=== PATIENT | male | born 1965 | race Caucasian/White ===

== ENCOUNTER 2020-07-30 10:21 | Outpatient (REF) | payer BC, SELFPAY | END 2020-07-30 10:22 | disposition home or self-care (01) | LOC: HO.LAB 10:21 | PROVIDERS: PCP Nurse Practitioner Family; Visit Provider Internal Medicine | DX: Z20.828 Contact with and (suspected) exposure to other viral communicable diseases (principal) | CPT/HCPCS: 36415; 87635 ==

== ENCOUNTER → 2020-08-20 08:43 | Outpatient (BNVA) | payer BC, SELFPAY | PROVIDERS: PCP Nurse Practitioner Family; Referring Provider Nurse Practitioner Family; Visit Provider Nurse Practitioner | DX: Z76.89 Persons encountering health services in other specified circumstances (principal) ==

== ENCOUNTER → 2021-12-27 07:20 | Outpatient (BNVA) | payer BC, SELFPAY | PROVIDERS: Visit Provider Internal Medicine | DX: E11.9 Type 2 diabetes mellitus without complications (principal) | CPT/HCPCS: 82947 ==

== ENCOUNTER 2022-12-10 06:56 | Emergency (ER) | payer BC, SELFPAY ==
[2022-12-10 07:33] VITALS: BP 157/79; PULSE 92; RESP 16; TEMP 36.2; O2SAT 97; BMI 28.4
[2022-12-10 08:17] VITALS: BP 154/91; PULSE 91; RESP 18; TEMP 36.5; O2SAT 98
--- NOTE | 2022-12-10 09:11 | ED.LOWEXIN ---
HPI - Extremity Injury (Lower) General Chief Complaint: Extremity Injury, Lower Stated Complaint: overgrown nail, left toe swollen Time Seen by Provider: 12/10/22 08:44 Source: patient Mode of arrival: ambulatory History of Present Illness HPI Narrative: 56-year-old male who is diabetic and presents with blister at the base of his right great toe and states poor sensation into his feet at baseline. He denies any associated fever, chills or increased foot pain. Related Data Home Medications Medication Instructions Recorded Confirmed insulin glargine 100 unit/mL (3 80 unit subcut QPM 12/27/21 12/27/21 mL) subcutaneous pen (Lantus Solostar U-100 Insulin) metformin 500 mg tablet 1,000 mg PO BID 12/27/21 12/27/21 Previous Rx's Medication Instructions Recorded omeprazole 40 mg capsule,delayed 40 mg PO DAILY 30 days #30 caps 08/20/20 release cephalexin 500 mg capsule 500 mg PO BID 5 days #10 caps 12/10/22 doxycycline hyclate 100 mg capsule 100 mg PO BID 5 days #10 caps 12/10/22 Allergies Allergy/AdvReac Type Severity Reaction Status Date / Time SEASONAL ALLERGIES Allergy Mild RUNNY NOSE Uncoded 12/27/21 07:42 Review of Systems Review of Systems: Pertinent positives and negatives as stated in HPI PMFSH Past Medical History Source: nursing notes reviewed Medical History HLD (hyperlipidemia) HTN (hypertension) T2DM (type 2 diabetes mellitus) Surgical History Hx of circumcision Hx of colonoscopy (08/13/18) Family History Family History Father Diabetes Mother Diabetes Paternal Grandfather Diabetes Social History Social History Alcohol intake: never Patient Tobacco Use Status: Never used Tobacco Advance Directives: No Advance Directives Information Provided: No Physical Exam Vital Signs: Vital Signs: Last Vital Signs Temp 97.7 F 12/10/22 08:17 Pulse 91 12/10/22 08:17 Resp 18 12/10/22 08:17 BP 154/91 H 12/10/22 08:17 Pulse Ox 98 02/11/23 08:17 O2 Del Method 12/10/22 08:17 BMI result Body Mass Index 28.4 VITAL SIGNS: Reviewed. GENERAL: Well developed, well nourished, in no acute distress. HEAD: Normocephalic/atraumatic EYES: PERRLA, EOMI EARS: Ext canals without abnormality OROPHARYNX: no oral lesions noted, posterior pharynx clear LUNGS: Normal breath sounds. No adventitious sounds or accessory muscle use. SpO2<98> CARDIOVASCULAR: Regular rate and rhythm without noted murmurs ABDOMEN: Soft, non-tender, non-distended with bowel sounds. RIGHT GREAT TOE: There is a blister noted at the right great toe nail fold without significant erythema NEUROLOGIC: Alert and oriented x 4. Medical Decision Making Medical Decision Making MDM Narrative: 56-year-old male who is diabetic and has a blister on the right great toe, I excised it with a 15 blade with clear fluid, irrigated with saline, no obvious purulence but due to being diabetic I will place him on 5 days combination of doxycycline/cephalexin and recommend Epsom salt soaks twice daily. He is also instructed to follow-up with his primary care provider. Differential Diagnosis Differential Diagnoses: The differential diagnosis associated with the presentation includes Please see the discussion above External Record Review External record reviewed: Outpatient record and Prior outpatient labs Chronic Conditions Patient?s care impacted by: Diabetes Discharge Plan Discharge Clinical Impression: Blister of great toe, right Patient Disposition: Home, Self-Care Instructions: Blister (ED) Additional Instructions: 1. Complete the entire course of medications as prescribed. 2. Follow-up with primary care provider on Monday. Return to the ER for any worsening symptoms Prescriptions: New doxycycline hyclate 100 mg capsule 100 mg PO BID 5 Days Qty: 10 0RF cephalexin 500 mg capsule 500 mg PO BID 5 Days Qty: 10 0RF No Action omeprazole 40 mg capsule,delayed release(DR/EC) 40 mg PO DAILY 30 Days Qty: 30 6RF Lantus Solostar U-100 Insulin 100 unit/mL (3 mL) insulin pen 80 unit subcut QPM metformin 500 mg tablet 1,000 mg PO BID Referrals: [facility] [Primary Care Provider] -
[2022-12-10] MEDS: Doxycycline Monohydrate 100 MG CAPSULE PO (09:28)
[2022-12-10] MEDS: cephALEXin 500 MG CAPSULE PO (09:28)
== END 2022-12-10 09:33 | disposition home or self-care (01) ==
PROVIDERS: Emergency Provider Student in an Organized Health Care Education/Training Program
DX: S90.421A Blister (nonthermal), right great toe, initial encounter (principal); X58.XXXA Exposure to other specified factors, initial encounter; R20.8 Other disturbances of skin sensation; E11.9 Type 2 diabetes mellitus without complications; I10 Essential (primary) hypertension; E78.5 Hyperlipidemia, unspecified; Z79.4 Long term (current) use of insulin; Y93.9 Activity, unspecified; Y92.9 Unspecified place or not applicable; Y99.9 Unspecified external cause status
CPT/HCPCS: 10060; 10140; 11420; 99283; 99284

== ENCOUNTER 2023-04-02 13:37 | Emergency (ER) | payer BC, SELFPAY ==
--- NOTE | ~2023-04-02 | XR_ITS ---
EXAMINATION: CHEST 2 VIEWS CLINICAL INFORMATION: weakness. COMPARISON: 10/20/2016. TECHNIQUE: PA and lateral views of the chest obtained. FINDINGS: The lungs are mildly hypoexpanded. No focal infiltrate, effusion, edema, or pneumothorax. Cardiac and mediastinal silhouettes are within normal limits for technique. No acute bony abnormality seen. Overlying EKG leads XR/XR chest 2V IMPRESSION: No evidence of acute disease
--- NOTE | ~2023-04-02 | CT_ITS ---
EXAMINATION: CT ABDOMEN AND PELVIS WITH CONTRAST CLINICAL INFORMATION: Abdominal pain with fever COMPARISON: 05/16/2020 TECHNIQUE: Multidetector volumetric imaging was performed from the superior aspect of the liver through the pubic symphysis following administration of 80 mL of Omnipaque 350 intravenous contrast. Sagittal and coronal reformatted images were obtained on the technologist workstation.. This CT examination was performed using dose optimization techniques as appropriate, variously including the following: *Automated exposure control *Adjustment of mA and/or kV according to patient size (this includes techniques or standardized protocols for targeted exams where dose is matched to indication/reason for exam; i.e. extremities or head) *Use of iterative reconstruction technique DLP: 542 mGy-cm FINDINGS: LUNG BASES: Stable discoid nodular density in the right middle lobe again noted. LIVER, GALLBLADDER, AND BILIARY TREE: Diffuse fatty infiltration of the liver but no focal hepatic lesion nor biliary ductal dilatation. The gallbladder is unremarkable with no evidence of radiopaque gallstones, gallbladder wall thickening, or obvious pericholecystic inflammatory changes. PANCREAS: Unremarkable. SPLEEN: Enlarged measuring 14 cm in length. ADRENAL GLANDS: 2.3 cm right adrenal nodule. This has been present since the oldest available 11/08/2015 study when it measured 2 cm in size as well. Contralateral left adrenal gland is unremarkable. KIDNEYS AND URETERS: The kidneys are normal in size, shape, and attenuation. No hydronephrosis, hydroureter, or calculi seen. No perinephric stranding. BLADDER: Unremarkable. GASTROINTESTINAL TRACT: Moderate amount of stool seen throughout the colon with a few scattered colonic diverticula but no focal colonic wall thickening or pericolonic inflammatory change to suggest articulated normal-appearing appendix in the right lower quadrant. Visualized small bowel unremarkable. Stomach is decompressed. ABDOMINAL WALL: No significant hernia is appreciated. LYMPHOVASCULAR STRUCTURES: No lymphadenopathy. The aorta is unremarkable. PELVIC VISCERA: Unremarkable. OSSEOUS STRUCTURES: Unremarkable. CT/CT abdomen pelvis w IV con IMPRESSION: Chronic appearing changes as described above. I do not appreciate any acute intra-abdominal process.
[2023-04-02 14:41] VITALS: BP 128/79; PULSE 115; RESP 16; TEMP 39.6; O2SAT 96; BMI 28.2
--- NOTE | 2023-04-02 14:44 | ED_ITS ---
HPI - General Adult General Chief complaint: Abdominal Pain Stated complaint: Unable to eat 5days/Headache/Abd pain Time Seen by Provider: 04/02/23 16:01 Source: patient, RN notes reviewed and old records reviewed Mode of arrival: ambulatory Limitations: no limitations History of Present Illness HPI narrative: 57-year-old male past medical history significant for type 2 diabetes, hypertension, hyperlipidemia, GERD presents for evaluation of abdominal pain and weakness Patient reports he has had abdominal pain, decreased appetite for the last 7 days or so He reports sinus pressure and headaches He states his pain is currently 6/10 with some mild nausea Denies any history abdominal surgeries Patient denies any sick contacts Reports he has been able tolerate water only Related Data Home Medications Medication Instructions Recorded Confirmed insulin glargine 100 unit/mL (3 80 unit subcut QPM 12/27/21 12/27/21 mL) subcutaneous pen (Lantus Solostar U-100 Insulin) metformin 500 mg tablet 1,000 mg PO BID 12/27/21 12/27/21 Previous Rx's Medication Instructions Recorded omeprazole 40 mg capsule,delayed 40 mg PO DAILY 30 days #30 caps 08/20/20 release cephalexin 500 mg capsule 500 mg PO BID 5 days #10 caps 12/10/22 doxycycline hyclate 100 mg capsule 100 mg PO BID 5 days #10 caps 12/10/22 amoxicillin 875 mg-potassium 1 tab PO Q12H #20 tabs 04/02/23 clavulanate 125 mg tablet ondansetron 4 mg disintegrating 4 mg PO Q8H PRN nausea and 04/02/23 tablet vomiting #20 tabs Allergies Allergy/AdvReac Type Severity Reaction Status Date / Time SEASONAL ALLERGIES Allergy Mild RUNNY NOSE Uncoded 04/02/23 14:41 Review of Systems Constitutional: Constitutional: Reports as per HPI, Denies fever(s) and Denies headache(s) ENT: Denies headache(s) Cardiovascular: Cardiovascular: Denies chest pain and Denies dyspnea Respiratory: Respiratory: Denies cough and Denies dyspnea Gastrointestinal: Gastrointestinal: Reports abdominal pain, Denies constipation, Reports nausea and Reports vomiting Genitourinary: Genitourinary: Denies difficulty urinating and Denies dysuria Neurologic: Denies headache(s) and Denies focal weakness [facility] Past Medical History Medical History HLD (hyperlipidemia) HTN (hypertension) T2DM (type 2 diabetes mellitus) Surgical History Hx of circumcision Hx of colonoscopy (08/13/18) Family History Family History Father Diabetes Mother Diabetes Paternal Grandfather Diabetes Social History Social History Alcohol intake: never Patient Tobacco Use Status: Never used Tobacco Advance Directives: No Advance Directives Information Provided: No Physical Exam ED Vital Signs: Vital Signs - 24 hr 04/02/23 14:41 04/02/23 15:50 Temperature 103.2 F H 100.3 F Pulse Rate 115 H 107 H Respiratory Rate 16 16 Blood Pressure 128/79 151/79 H Pulse Oximetry 96 97 Oxygen Delivery Method Room Air Room Air BMI result Body Mass Index 28.2 Const General: healthy appearing, comfortable, no acute distress, alert and awake Nutritional Appearance: well nourished Orientation/consciousness: patient oriented x3 HENMT Head: Yes normocephalic and Yes atraumatic Throat: Yes posterior oropharynx normal Eyes Eyelids: Yes eyelids normal Conjunctivae: conjunctivae normal Sclerae: sclerae normal Corneas: corneas normal Pupils: Equal, round and reactive pupils present EOM: EOMs intact bilaterally Neck Neck: Yes full ROM Resp Effort & Inspection: normal respiratory effort, able to speak in complete sentences, no audible wheezes and not labored Auscultation: clear to auscultation bilaterally Cardio Rate: regular rate Rhythm: regular rhythm GI Palpation (GI): Soft to palpation, not firm, Tenderness to palpation present (GI) in the LLQ and in the LUQ and Guarding due to palpation present (GI) Auscultation: normal bowel sounds Skin General skin exam: no rashes or lesions noted and elasticity normal Neuro General: patient oriented x3 Cranial nerves: Yes Equal, round and reactive pupils present and Yes Bilaterally intact EOM present Cognition (Neuro): normal cognition Extrem Other: Moving all extremities well without any obvious deformities Course Course Course Narrative: RME: 57 yold male presents to the ED for abdominal pain, fever, headache, and loss of appettite. patient febirle and tacychardia. labs, cT abdomen, and SARS ordered Reevaluation(s) Reevaluation #1: Patient's vital signs have improved with treatment. He reports feeling much better. His workup is largely unremarkable. CT scan and pelvis does not show any acute findings, UA is significant for proteinuria but no evidence of infection. Chest x-ray is clear. Patient's viral panel is negative. Again, no evidence of acute abdomen. The patient's symptoms are likely related to sinusitis and he will be treated with Augmentin. Time: 19:00 Medications Administered Discontinued Medications Generic Name Dose Route Start Last Admin Trade Name Freq PRN Reason Stop Dose Admin Sodium Chloride 1,000 mls @ 999 mls/hr 04/02/23 16:45 04/02/23 18:04 Ns IV 04/02/23 17:45 Infused .Q1H1M SCOTT Infusion Iohexol 100 ml 04/02/23 16:18 04/02/23 16:18 Iohexol 350 Mg/Ml 100 Ml Infus..Btl IV 04/02/23 16:19 85 ml ONCE ONE Administration Morphine Sulfate 4 mg 04/02/23 16:43 04/02/23 17:05 Morphine Sulfate 4 Mg/Ml Cartridge IVPUSH 04/02/23 16:44 4 mg ONCE ONE Administration Protocol Ondansetron HCl 4 mg 04/02/23 16:43 04/02/23 17:05 Ondansetron Hcl 4 Mg/2 Ml Vial IVPUSH 04/02/23 16:44 4 mg ONCE ONE Administration Medical Decision Making Medical Decision Making MDM Narrative: 57 year male presents for evaluation of abdominal pain, vomiting. He is febrile arrival, tachycardic. Patient does not have a leukocytosis, his lactic acid is within normal limits. Will treat IV fluids morphine Zofran, chest x-ray, UA, CT abdomen pelvis currently pending. patient's T bili is slightly elevated, or his pain is mostly left-sided and tenderness is left-sided on exam Differential Diagnosis Differential Diagnoses: The differential diagnosis associated with the presentation includes Acute cholecystitis Acute appendicitis Diverticulitis Colitis Bowel obstruction Influenza Lab Data 04/02/23 14:57 04/02/23 14:57 Labs: Lab Results 04/02/23 04/02/23 04/02/23 Range/Units 14:57 14:57 14:57 WBC 6.8 (4.8-10.8) X10*3/uL RBC 5.39 (4.60-5.80) X10*6/uL Hgb 16.2 (14.0-18.0) g/dl Hct 46.5 (42.0-52.0) % MCV 86.3 (80.0-98.0) fL MCH 30.1 (27.0-33.0) pg MCHC 34.8 (31.0-36.0) g/dl RDW 12.1 (11.0-16.0) % Plt Count 125 L (160-400) X10*3/uL MPV 10.5 (9.4-12.4) fL Immature Gran % (Auto) 0.3 (0.0-0.4) % Neut % (Auto) 83.5 H (45-73) % Lymph % (Auto) 10.1 L (20-40) % [place] % (Auto) 5.8 (2-11) % Eos % (Auto) 0.0 (0-4) % Baso % (Auto) 0.3 (0-2) % Lymph # (Auto) 0.7 L (1.2-4.9) X10*3/uL [place] # (Auto) 0.4 (0.1-1.2) X10*3/uL Eos # (Auto) 0.0 (0.0-0.4) X10*3/uL Baso # (Auto) 0.0 (0.0-0.2) X10*3/uL Abs Immat Gran (auto) 0.02 (0.00-0.03) X10*3/uL Absolute Neuts (auto) 5.7 (2.0-8.3) x10*3/uL Absolute Nucleated RBC 0.000 (0.0-0.012) X10*3/uL Nucleated RBC % (auto) 0.0 (0.0-0.2) /100WBC Sodium 132 L (135-145) mmol/L Potassium 3.8 (3.3-5.1) mmol/L Chloride 96 (96-108) mmol/L Carbon Dioxide 26 (22-29) mmol/L Anion Gap 14 (12-20) BUN 17 H (9-16) mg/dL Creatinine 0.88 (0.5-1.4) mg/dL Estim Creat Clear Calc 99.6 Estimated GFR > 60 Random Glucose 110 (60-115) mg/dL Lactic Acid 1.0 (0.5-2.0) mmol/L Calcium 8.5 (8.4-10.2) mg/dL Total Bilirubin 1.2 H (0.0-1.0) mg/dL AST 36 (5-37) U/L ALT 46 H (0-40) U/L Alkaline Phosphatase 94 (39-117) U/L Total Protein 7.1 (6.5-8.0) g/dL Albumin 3.8 (3.5-5.0) g/dL Lipase 13 (8-78) U/L Urine Color Urine Appearance Urine pH (5.0-9.0) Ur Specific [place] (1.005-1.025) Urine Protein (Neg-Trace) mg/dL Urine Glucose (UA) (Negative) mg/dL Urine Ketones (Negative) mg/dL Urine Blood (Negative) Urine Nitrite (Negative) Ur Leukocyte Esterase (Negative) Urine RBC (0-2) /HPF Urine WBC (0-5) /HPF Ur Squamous Epith Cells (0-2) /HPF Urine Bacteria (None Seen) Hyaline Casts (0-2) /LPF Influenza Type A (PCR) (Negative) Influenza Type B (PCR) (Negative) RSV RNA Qual (PCR) (Negative) SARS-CoV-2 RNA (RT-PCR) (Negative) 04/02/23 04/02/23 Range/Units 14:57 16:59 WBC (4.8-10.8) X10*3/uL RBC (4.60-5.80) X10*6/uL Hgb (14.0-18.0) g/dl Hct (42.0-52.0) % MCV (80.0-98.0) fL MCH (27.0-33.0) pg MCHC (31.0-36.0) g/dl RDW (11.0-16.0) % Plt Count (160-400) X10*3/uL MPV (9.4-12.4) fL Immature Gran % (Auto) (0.0-0.4) % Neut % (Auto) (45-73) % Lymph % (Auto) (20-40) % [place] % (Auto) (2-11) % Eos % (Auto) (0-4) % Baso % (Auto) (0-2) % Lymph # (Auto) (1.2-4.9) X10*3/uL [place] # (Auto) (0.1-1.2) X10*3/uL Eos # (Auto) (0.0-0.4) X10*3/uL Baso # (Auto) (0.0-0.2) X10*3/uL Abs Immat Gran (auto) (0.00-0.03) X10*3/uL Absolute Neuts (auto) (2.0-8.3) x10*3/uL Absolute Nucleated RBC (0.0-0.012) X10*3/uL Nucleated RBC % (auto) (0.0-0.2) /100WBC Sodium (135-145) mmol/L Potassium (3.3-5.1) mmol/L Chloride (96-108) mmol/L Carbon Dioxide (22-29) mmol/L Anion Gap (12-20) BUN (9-16) mg/dL Creatinine (0.5-1.4) mg/dL Estim Creat Clear Calc Estimated GFR Random Glucose (60-115) mg/dL Lactic Acid (0.5-2.0) mmol/L Calcium (8.4-10.2) mg/dL Total Bilirubin (0.0-1.0) mg/dL AST (5-37) U/L ALT (0-40) U/L Alkaline Phosphatase (39-117) U/L Total Protein (6.5-8.0) g/dL Albumin (3.5-5.0) g/dL Lipase (8-78) U/L Urine Color Dark Yellow Urine Appearance Clear Urine pH 5.5 (5.0-9.0) Ur Specific [place] 1.025 (1.005-1.025) Urine Protein 300 (3+) H (Neg-Trace) mg/dL Urine Glucose (UA) 100 H (Negative) mg/dL Urine Ketones 40 (Negative) mg/dL Urine Blood Trace H (Negative) Urine Nitrite Negative (Negative) Ur Leukocyte Esterase Negative (Negative) Urine RBC 3-5 H (0-2) /HPF Urine WBC 0-5 (0-5) /HPF Ur Squamous Epith Cells 0-2 (0-2) /HPF Urine Bacteria None Seen (None Seen) Hyaline Casts 0-2 (0-2) /LPF Influenza Type A (PCR) NEGATIVE (Negative) Influenza Type B (PCR) NEGATIVE (Negative) RSV RNA Qual (PCR) NEGATIVE (Negative) SARS-CoV-2 RNA (RT-PCR) NEGATIVE (Negative) Discharge Plan Discharge Clinical Impression: Vomiting, Acute bacterial sinusitis Patient Disposition: Home, Self-Care Instructions: Sinusitis (ED) Additional Instructions: Take Augmentin twice daily for the next 10 days Use ibuprofen or Tylenol for fevers or body aches Hydrate well, small sepsis time Use Zofran for nausea/vomiting Follow-up with your primary doctor Prescriptions: New amoxicillin-pot clavulanate 875-125 mg tablet 1 tab PO Q12H Qty: 20 0RF ondansetron 4 mg tablet,disintegrating 4 mg PO Q8H PRN (Reason: nausea and vomiting) Qty: 20 0RF No Action doxycycline hyclate 100 mg capsule 100 mg PO BID 5 Days Qty: 10 0RF cephalexin 500 mg capsule 500 mg PO BID 5 Days Qty: 10 0RF omeprazole 40 mg capsule,delayed release(DR/EC) 40 mg PO DAILY 30 Days Qty: 30 6RF Lantus Solostar U-100 Insulin 100 unit/mL (3 mL) insulin pen 80 unit subcut QPM metformin 500 mg tablet 1,000 mg PO BID
[2023-04-02 15:04] LABS: MANUAL DIFF FLAG NO
[2023-04-02 15:13] LABS: Basophils Percent Auto 0.3 % (0-2); Hematocrit 46.5 % (42.0-52.0); Hemoglobin 16.2 g/dl (14.0-18.0); Imm Gran Abs Auto 0.02 X10*3/uL (0.00-0.03); Imm Gran Pct Auto 0.3 % (0.0-0.4); Lymphocytes Absolute Auto 0.7 X10*3/uL (1.2-4.9); Lymphocytes Percent Auto 10.1 % (20-40); Mean Corpuscular HGB Conc 34.8 g/dl (31.0-36.0); Mean Corpuscular Hemoglobin 30.1 pg (27.0-33.0); Mean Corpuscular Volume 86.3 fL (80.0-98.0); Mean Platelet Volume 10.5 fL (9.4-12.4); Monocytes Absolute Auto 0.4 X10*3/uL (0.1-1.2); Monocytes Percent Auto 5.8 % (2-11); Neutrophils Absolute Auto 5.7 x10*3/uL (2.0-8.3); Neutrophils Percent Auto 83.5 % (45-73); Platelet Count 125 X10*3/uL (160-400); Red Blood Count 5.39 X10*6/uL (4.60-5.80); Red Cell Distribution Width 12.1 % (11.0-16.0); White Blood Count 6.8 X10*3/uL (4.8-10.8)
[2023-04-02 15:29] LABS: Alanine Aminotransferase 46 U/L (0-40); Albumin Level 3.8 g/dL (3.5-5.0); Alkaline Phosphatase 94 U/L (39-117); Anion Gap 14 (12-20); Aspartate Amino Transferase 36 U/L (5-37); Bilirubin Total 1.2 mg/dL (0.0-1.0); Blood Urea Nitrogen 17 mg/dL (9-16); Calcium 8.5 mg/dL (8.4-10.2); Carbon Dioxide 26 mmol/L (22-29); Chloride 96 mmol/L (96-108); Creatinine Clr Calc Pharmacy 99.6; Estimated Glomerular Filt Rate > 60; Glucose Random 110 mg/dL (60-115); Lipase 13 U/L (8-78); Potassium 3.8 mmol/L (3.3-5.1); Sodium 132 mmol/L (135-145); Total Protein 7.1 g/dL (6.5-8.0)
[2023-04-02 15:50] VITALS: BP 151/79; PULSE 107; RESP 16; TEMP 37.9; O2SAT 97
[2023-04-02 15:51] LABS: Influenza A PCR NEGATIVE (Negative); Influenza B PCR NEGATIVE (Negative); Resp Syncy Virus RNA Qual PCR NEGATIVE (Negative); SARS COV2 PCR INHOUSE NEGATIVE (Negative)
[2023-04-02] MEDS: iohexoL 350 MG/ML 100 ML INFUS..BTL IV (16:18)
[2023-04-02] MEDS: 0.9 % Sodium Chloride 1,000 ML 999 ML IV (16:58)
[2023-04-02] MEDS: ondansetron HCL 4 MG/2 ML VIAL IVPUSH (17:05)
[2023-04-02] MEDS: Morphine Sulfate 4 MG/ML CARTRIDGE IVPUSH (17:05)
[2023-04-02 17:15] LABS: Appearance Urine Clear; Color Urine Dark Yellow; Glucose Urine UA 100 mg/dL (Negative); Leukocyte Esterase Urine Negative (Negative); Nitrite Urine Negative (Negative); PH 5.5 (5.0-9.0); Specific Gravity - Urine 1.025 (1.005-1.025); UMIC TRIGGER UACC YES; Urine Blood Trace (Negative); Urine Ketones 40 mg/dL (Negative); Urine Protein 300 (3+) mg/dL (Neg-Trace)
[2023-04-02 17:17] LABS: Bacteria Urine None Seen (None Seen); Hyaline Casts Urine 0-2 /LPF (0-2); Squamous Epithelial Cell Urine 0-2 /HPF (0-2); WBC Urine 0-5 /HPF (0-5)
[2023-04-02 18:00] VITALS: BP 142/72; PULSE 102; RESP 16; TEMP 38.1; O2SAT 97
[2023-04-02] MEDS: Amoxicillin/Potassium Clav 875 MG TABLET PO (19:21)
== END 2023-04-02 19:22 | disposition home or self-care (01) ==
PROVIDERS: Physician Assistant; Emergency Provider Emergency Medicine
DX: J01.90 Acute sinusitis, unspecified (principal); R10.30 Lower abdominal pain, unspecified; E11.9 Type 2 diabetes mellitus without complications; I10 Essential (primary) hypertension; R11.2 Nausea with vomiting, unspecified; Z79.899 Other long term (current) drug therapy; Z20.822 Contact with and (suspected) exposure to COVID-19; Z20.828 Contact with and (suspected) exposure to other viral communicable diseases; Z79.4 Long term (current) use of insulin
CPT/HCPCS: 0241U; 71046; 74177; 80053; 81001; 83605; 83690; 85025; 87040; 96361; 96374; 96375; 99283; 99284; J2270; J2405; Q9967

== ENCOUNTER 2023-09-10 08:23 | Inpatient (IN) | payer BC, SELFPAY ==
--- NOTE | ~2023-09-10 | MR_ITS ---
EXAMINATION: MR BRAIN WITHOUT CONTRAST CLINICAL INFORMATION: Cerebrovascular accident. Left hemiplegia. COMPARISON: CT head 09/10/2023. TECHNIQUE: Multiplanar MR imaging of the brain was performed without contrast. FINDINGS: There is restricted diffusion most likely representing an acute lacunar infarct involving the right thalamus. This finding is best depicted on axial image 18 of 33 series 3. In addition to this finding there are numerous foci of T2 FLAIR signal hyperintensity within the periventricular white matter no pathological magnetic susceptibility artifact. Intracranial vascular flow voids are maintained. There is no intracranial mass effect or midline shift. No abnormal extra-axial collection. Lateral and third ventricles are normal. No hydrocephalus. Midline structures including the cervicomedullary junction are normal. There is no mastoid middle ear effusion. Moderate paranasal sinus disease primarily affecting the left maxillary sinus. Globes and orbits are symmetric. MR/MR head/brain wo con IMPRESSION: There is an acute lacunar infarct involving the right thalamus. In addition to this acute finding there are numerous chronic small vessel ischemic changes within the periventricular white matter.
--- NOTE | ~2023-09-10 | CT_ITS ---
EXAMINATION: CT HEAD WITHOUT CONTRAST CLINICAL INFORMATION: Left facial droop, arm and leg weakness for 2 days. COMPARISON: None available. TECHNIQUE: Contiguous axial imaging was performed from the skull base to vertex without intravenous administration of contrast. This CT examination was performed using dose optimization techniques as appropriate, variously including the following: *Automated exposure control *Adjustment of mA and/or kV according to patient size (this includes techniques or standardized protocols for targeted exams where dose is matched to indication/reason for exam; i.e. extremities or head) *Use of iterative reconstruction technique DLP: 731 mGy-cm FINDINGS: No intracranial hemorrhage or mass lesion is seen. Right thalamic hypodensity. No extra-axial collection is appreciated. The ventricles are normal in size and configuration without evidence of hydrocephalus. Left maxillary sinus mucosal thickening. The mastoid air cells are clear. CT/CT head/brain wo IV con IMPRESSION: Right thalamic hypodensity suggesting age indeterminate lacunar infarct. MRI may be of use for further evaluation if clinically indicated.
--- NOTE | ~2023-09-10 | US_ITS ---
EXAMINATION: US EXTRACRANIAL CAROTID DUPLEX, BILATERAL CLINICAL INFORMATION: Stroke, left-sided hemiparesis COMPARISON: None available. TECHNIQUE: Real-time ultrasound and Doppler techniques (integrating B-mode 2-D vascular images, Doppler spectral analysis and color-flow Doppler imaging) were utilized to interrogate the extracranial carotid arteries, the vertebral arteries and proximal subclavian arteries bilaterally. The degree of stenosis is determined by criteria similar to NASCET. FINDINGS: Right Side: 1. There is mild atherosclerotic plaque seen in the bifurcation/proximal ICA region. 2. The common carotid artery PSV proximally is 96.9 cm/s and distally 97.5 cm/s. 3. The proximal internal carotid artery velocities are 54.9 cm/s systolic and 18.7 cm/s diastolic. 4. The proximal external carotid artery PSV is 125 cm/s. 5. The vertebral artery shows antegrade flow. 6. The subclavian artery waveforms are normal. Left Side: 1. There is mild atherosclerotic plaque seen in the bifurcation/proximal ICA region. 2. The common carotid artery PSV proximally is 111 cm/s and distally 117 cm/s. 3. The proximal internal carotid artery velocities are 95.7 cm/s systolic and 31.7 cm/s diastolic. 4. The proximal external carotid artery PSV is 136 cm/s. 5. The vertebral artery shows antegrade flow. 6. The subclavian artery waveforms are normal. US/US carotid duplex BI IMPRESSION: 1. RIGHT: Minimal, non-hemodynamically significant stenosis of the proximal right internal carotid artery corresponding to a 0-49% stenosis by velocity criteria. 2. LEFT: Minimal, non-hemodynamically significant stenosis of the proximal left internal carotid artery corresponding to a 0-49% stenosis by velocity criteria.
[2023-09-10 08:28] VITALS: BP 159/91; PULSE 89; RESP 18; TEMP 36.8; O2SAT 99; BMI 27.4
--- NOTE | 2023-09-10 08:35 | ECG_ITS ---
Test Reason : STROKE Blood Pressure : / mmHG Vent. Rate : 086 BPM Atrial Rate : 086 BPM P-R Int : 142 ms QRS Dur : 096 ms QT Int : 354 ms P-R-T Axes : 041 027 036 degrees QTc Int : 423 ms Normal sinus rhythm Normal ECG No significant changes seen Referred By: Generic ED Physician Electronically Signed By:BAY ROLLE MD
--- NOTE | 2023-09-10 08:56 | ED.NEUROSD ---
HPI - Neuro Symptoms/Deficit General Chief Complaint: Neuro Symptoms/Deficit Stated Complaint: Numbness in left side of body Time Seen by Provider: 09/10/23 08:55 Source: patient and family (, John) Mode of arrival: ambulatory Limitations: no limitations History of Present Illness HPI Narrative: 57-year-old male PMH diabetes, hypertension, hyperlipidemia, GERD who presents emergency department for evaluation of left facial numbness, droop and left arm and leg weakness x2 days. He states the symptoms came on gradually 2 days prior and had been constant since then. Patient states that he has had difficulty walking in his fallen at least 3 times since onset of his symptoms. He denied headache, nausea, vomiting, fever or chills. Related Data Home Medications Medication Instructions Recorded Confirmed insulin glargine 100 unit/mL (3 80 unit subcut QPM 12/27/21 12/27/21 mL) subcutaneous pen (Lantus Solostar U-100 Insulin) metformin 500 mg tablet 1,000 mg PO BID 12/27/21 12/27/21 Previous Rx's Medication Instructions Recorded omeprazole 40 mg capsule,delayed 40 mg PO DAILY 30 days #30 caps 08/20/20 release cephalexin 500 mg capsule 500 mg PO BID 5 days #10 caps 12/10/22 doxycycline hyclate 100 mg capsule 100 mg PO BID 5 days #10 caps 12/10/22 amoxicillin 875 mg-potassium 1 tab PO Q12H #20 tabs 04/02/23 clavulanate 125 mg tablet ondansetron 4 mg disintegrating 4 mg PO Q8H PRN nausea and 04/02/23 tablet vomiting #20 tabs Allergies Allergy/AdvReac Type Severity Reaction Status Date / Time SEASONAL ALLERGIES Allergy Mild RUNNY NOSE Uncoded 09/10/23 08:34 Review of Systems Review of Systems: Yes all other systems are reviewed and are negative ON LICENSE OF [facility] Past Medical History ON LICENSE OF [facility] Narrative: Social history: He is . His , kike is here in the emergency department with him. He denies tobacco, alcohol and drug use Medical History HLD (hyperlipidemia) HTN (hypertension) T2DM (type 2 diabetes mellitus) Surgical History Hx of colonoscopy (08/13/18) Hx of circumcision Family History Family History Father Diabetes Mother Diabetes Paternal Grandfather Diabetes Social History Social History Alcohol intake: never Patient Tobacco Use Status: Never used Tobacco Smoked in Last 30 Days: No Use of substances other than those prescribed or required for medical reasons: No Advance Directives: No Advance Directives Information Provided: Yes Physical Exam Vital Signs: Vital Signs: Last Vital Signs Temp 98.2 F 09/10/23 08:28 Pulse 87 09/10/23 10:14 Resp 18 09/10/23 10:14 BP 156/86 H 09/10/23 10:14 Pulse Ox 98 09/10/23 10:14 O2 Del Method Room Air 09/10/23 10:14 BMI result Body Mass Index 27.4 Vital signs revealed an elevated blood pressure of 156/86 Exam: General: Awake, alert in no distress Head: Normocephalic, atraumatic EENT: PERRL, Lids normal, sclera normal, conjunctiva normal, nose normal , ears normal, throat without erythema or exudates Neck: Supple, no adenopathy, no trachea midline or C-spine tenderness Lung: breath sounds symmetric, no wheezing, rales or rhonchi Chest: symmetric movement, nontender Heart: regular rate and rhythm, normal S1, S2 no murmurs or rubs Abdomen: soft, non-tender, nondistended, normal bowel sounds Back: no vertebral tenderness, no CVAT Extremities: no deformities, moves all extremities symmetrically Skin: no rashes, no lesion, normal color and warmth Neuro: Awake, alert, oriented, normal speech, cranial nerves revealed a slight left facial droop with decreased light sensation in the left compared to the right, patient has weakness of the left upper and lower extremity with increased weakness the lower extremity compared to the right, has no diminished light touch in all a upper lower extremity Psych: Pleasant, cooperative Medical Decision Making Medical Decision Making MDM Narrative: 57-year-old male PMH diabetes, hypertension, hyperlipidemia, GERD who presents emergency department for evaluation of left facial numbness, droop and left arm and leg weakness x2 days. Symptoms have been constant over the last 2 days and have not gotten worse but have persisted therefore he came to the emergency department for evaluation. Physical examination is concerning for left-sided stroke with mild facial droop, diminished light touch on the left side of the face, weakness in both the left and upper lower extremity with more severe weakness in the lower extremity. The following evaluation was ordered by me: CBC, BMP, PT/INR, PTT, troponin, EKG, CT scan of the brain 12:18 My interpretation patient's laboratory evaluation is as follows: CBC was normal. Coags normal. Glucose elevated 282. CK was normal. Troponin below detectable limits. Twelve EKG was normal with no evidence for atrial fibrillation CT scan of the brain revealed a right thalamic hypodensity consistent with lacunar infarct-this may explain the patient's symptoms Patient was given aspirin 324 mg orally. Patient will need admission for further workup of stroke. I I did discuss admission with the covering hospitalist, Dr. Maier the patient will be admitted to the hospital service for further management. Differential Diagnosis Differential Diagnoses: The differential diagnosis associated with the presentation includes Differential diagnosis includes was not limited to stroke, cerebral bleed, mass, anemia, electrolyte abnormality, Admission/Observation Consideration of admission/observation: Escalation of care including admission/observation considered Lab Data [facility] Lab Attestation statement: I reviewed the patient's lab results. Please see MDM above 09/10/23 10:06 09/10/23 10:06 Labs: Lab Results 09/10/23 09/10/23 Range/Units 09:58 10:06 WBC 6.9 (4.8-10.8) X10*3/uL RBC 5.26 (4.60-5.80) X10*6/uL Hgb 16.0 (14.0-18.0) g/dl Hct 45.5 (42.0-52.0) % MCV 86.5 (80.0-98.0) fL MCH 30.4 (27.0-33.0) pg MCHC 35.2 (31.0-36.0) g/dl RDW 12.4 (11.0-16.0) % Plt Count 200 D (160-400) X10*3/uL MPV 10.5 (9.4-12.4) fL Immature Gran % (Auto) 0.3 (0.0-0.4) % Neut % (Auto) 56.4 (45-73) % Lymph % (Auto) 34.3 (20-40) % [place] % (Auto) 6.7 (2-11) % Eos % (Auto) 2.0 (0-4) % Baso % (Auto) 0.3 (0-2) % Lymph # (Auto) 2.4 (1.2-4.9) X10*3/uL [place] # (Auto) 0.5 (0.1-1.2) X10*3/uL Eos # (Auto) 0.1 (0.0-0.4) X10*3/uL Baso # (Auto) 0.0 (0.0-0.2) X10*3/uL Abs Immat Gran (auto) 0.02 (0.00-0.03) X10*3/uL Absolute Neuts (auto) 3.9 (2.0-8.3) x10*3/uL Absolute Nucleated RBC 0.000 (0.0-0.012) X10*3/uL Nucleated RBC % (auto) 0.0 (0.0-0.2) /100WBC PT 10.9 L (11.1-13.3) SEC INR 0.9 (0.9-1.1) APTT 29.4 (26.0-36.4) SEC Sodium 136 (135-145) mmol/L Potassium 4.0 (3.3-5.1) mmol/L Chloride 102 (96-108) mmol/L Carbon Dioxide 28 (22-29) mmol/L Anion Gap 10 L (12-20) BUN 14 (9-16) mg/dL Creatinine 0.80 (0.5-1.4) mg/dL Estim Creat Clear Calc 97.3 Estimated GFR > 60 POC Glucose 284 H (60-115) mg/dL Random Glucose 282 H (60-115) mg/dL Calcium 9.1 D (8.4-10.2) mg/dL Total Creatine Kinase 79 (38-174) U/L Troponin I High Sens < 2.7 (<3.5-35.0) ng/L Independent Interpretation I performed an independent interpretation of an: EKG Interpretation: My independent interpretation patient's 12 EKG done at 09:13 hours is as follows: Normal sinus rhythm with a rate of 86, normal IN interval, QRS duration QTC interval, no ST segment elevation, no ST segment depression, no PACs, no PVCs-this is a normal EKG. Radiology Impression Discussion of test interpretation with radiology: I have reviewed the radiologist's reading. Radiologist Impression: CT head/brain wo IV con IMPRESSION: Right thalamic hypodensity suggesting age indeterminate lacunar infarct. MRI may be of use for further evaluation if clinically indicated. Dictated By: Jonnathan Jennings NIH Stroke Scale Internal: Initial- Upon Arrival Level of Consciousness: Alert Level of Consciousness Questions: Answers both questions correctly Level of Consciousness Commands: Performs both tasks correctly Best Gaze: Normal Visual: No visual loss Facial Palsy: Minor paralyis Motor Arm (Right): No drift Motor Arm (Left): Drift Motor Leg (Right): Drift Motor Leg (Left): Drift Limb Ataxia: Present in two limbs Sensory: Mild to moderate sensory loss Best Language: No aphasia Dysarthia: Normal Extinction and Inattention: No abnormality Score: 7 Discharge Plan Discharge Clinical Impression: Stroke Qualifiers: Laterality of affected vessel: right Patient Disposition: Admitted As Inpatient
--- NOTE | 2023-09-10 09:32 | PC.NURSE ---
PT STATES HE HAS DEVELOPED SUDDEN LEFT SIDED WEAKNESS UPON AWAKENING ON THE MORNING OF 09/08/23. HE STATES HE HAS NEVER EXPERIENCED THESE SX BEFORE AND DOES NOT RECALL ANY CARDIAC MEDICAL HX. PT STATES THAT THIS WEAKNESS HAS CAUSED HIM TO FALL A FEW TIMES OVER THE PAST 2 DAYS. PT STATES HE DID NOT HIT HIS HEAD AND DID NOT LOSE CONSCIOUSNESS. PT STATES HE IS NOT ANTICOAGULATED AND ONLY TAKES INSULIN FOR DM STATUS. HE STATES HE HAS NOT CHECKED HIS BS. PT DOES NOT HAVE ANY C/O TINGLING SENSATIONS OR PAIN, JUST WEAKNESS.
[2023-09-10 10:11] LABS: Glucose, Whole Blood 284 mg/dL (60-115)
[2023-09-10 10:13] LABS: MANUAL DIFF FLAG NO
[2023-09-10 10:14] VITALS: BP 156/86; PULSE 87; RESP 18; O2SAT 98
--- NOTE | 2023-09-10 10:14 | PC.NURSE ---
LABS DRAWN AND SENT
[2023-09-10 10:18] LABS: Basophils Percent Auto 0.3 % (0-2); Eosinophils Absolute Auto 0.1 X10*3/uL (0.0-0.4); Hematocrit 45.5 % (42.0-52.0); Imm Gran Abs Auto 0.02 X10*3/uL (0.00-0.03); Imm Gran Pct Auto 0.3 % (0.0-0.4); Lymphocytes Absolute Auto 2.4 X10*3/uL (1.2-4.9); Lymphocytes Percent Auto 34.3 % (20-40); Mean Corpuscular HGB Conc 35.2 g/dl (31.0-36.0); Mean Corpuscular Hemoglobin 30.4 pg (27.0-33.0); Mean Corpuscular Volume 86.5 fL (80.0-98.0); Mean Platelet Volume 10.5 fL (9.4-12.4); Monocytes Absolute Auto 0.5 X10*3/uL (0.1-1.2); Monocytes Percent Auto 6.7 % (2-11); Neutrophils Absolute Auto 3.9 x10*3/uL (2.0-8.3); Neutrophils Percent Auto 56.4 % (45-73); Platelet Count 200 X10*3/uL (160-400); Red Blood Count 5.26 X10*6/uL (4.60-5.80); Red Cell Distribution Width 12.4 % (11.0-16.0); White Blood Count 6.9 X10*3/uL (4.8-10.8)
[2023-09-10 10:23] LABS: INTERNATIONAL NORM RATIO 0.9 (0.9-1.1); Prothrombin Time 10.9 SEC (11.1-13.3)
[2023-09-10 10:26] LABS: Partial Thromboplastin Time 29.4 SEC (26.0-36.4)
[2023-09-10 10:33] LABS: Anion Gap 10 (12-20); Blood Urea Nitrogen 14 mg/dL (9-16); Calcium 9.1 mg/dL (8.4-10.2); Carbon Dioxide 28 mmol/L (22-29); Chloride 102 mmol/L (96-108); Creatinine Clr Calc Pharmacy 97.3; Estimated Glomerular Filt Rate > 60; Glucose Random 282 mg/dL (60-115); Sodium 136 mmol/L (135-145)
[2023-09-10 10:46] LABS: Troponin-I High Sensitivity < 2.7 ng/L (<3.5-35.0)
[2023-09-10] MEDS: Aspirin 81 MG TAB.CHEW 324 MG PO (12:39)
--- NOTE | 2023-09-10 12:43 | PM.IMHP ---
History of Present Illness Date of Service: 09/10/23 Chief Complaint: left hemiparesis 55M PMH htn, dm presented with left hemiparesis. patient with woke up 2 days prior to presentation with new onset left hemiparesis and left facial numbness with dysarthria. Dysarthria has improved, but patient continues to have difficulty walking and significant left lower extremity weakness so he decided to come to the ED. In ED CT head shows age-indeterminate infarct in right thalamus. Review of Systems Review of Systems: Yes all other systems are reviewed and are negative [facility] Medical History HLD (hyperlipidemia) HTN (hypertension) T2DM (type 2 diabetes mellitus) Family History Father Diabetes Mother Diabetes Paternal Grandfather Diabetes Surgical History Hx of colonoscopy (08/13/18) Hx of circumcision Social History Alcohol intake: never Patient Tobacco Use Status: Never used Tobacco Smoked in Last 30 Days: No Use of substances other than those prescribed or required for medical reasons: No Advance Directives: No Advance Directives Information Provided: Yes Meds Allergies Allergy/AdvReac Type Severity Reaction Status Date / Time SEASONAL ALLERGIES Allergy Mild RUNNY NOSE Uncoded 09/10/23 08:34 Active Medications: Current Medications Aspirin (Aspirin Enteric Coated 81 Mg Tablet.) 81 mg PO DAILY SCOTT Atorvastatin Calcium (Atorvastatin Calcium 80 Mg Tablet) 80 mg PO BEDTIME SCOTT Dextrose (Dextrose 50 % 25 Gm/50 Ml Syringe) 25 gm IVPUSH Q15M PRN; Protocol PRN Reason: per Hypoglycemia Standing Ord. Glucose (Glucose Gel 15 Gm Gel..Gram.) 15 gm PO Q15M PRN; Protocol PRN Reason: per Hypoglycemia Standing Ord. Insulin Glargine (Insulin Glargine,Hum.Rec.Anlog 100 Unit/Ml 10 Ml Vial) 40 unit SUBCUT BEDTIME SCOTT Insulin Human Lispro (Insulin Lispro 100 Unit/Ml 3 Ml Vial) 0 unit SUBCUT QIDACHS SCOTT; Protocol Home Medications Medication Instructions Recorded Confirmed Last Taken Type insulin glargine 100 unit/mL (3 80 unit subcut QPM 02/28/22 02/28/22 Unknown History mL) subcutaneous pen (Lantus Solostar U-100 Insulin) metformin 500 mg tablet 1,000 mg PO BID 12/27/21 12/27/21 Unknown History Physical Exam Vital Signs and Narrative: Vital Signs: Last Vital Signs Temp 98.2 F 09/10/23 08:28 Pulse 87 09/10/23 10:14 Resp 18 09/10/23 10:14 BP 156/86 H 09/10/23 10:14 Pulse Ox 98 09/10/23 10:14 O2 Del Method Room Air 09/10/23 10:14 BMI result Body Mass Index 27.4 General: AO X 3, no acute distress Resp: CTA bilateral, no accessory muscles used CVS: S1,S2,RRR GI: soft, non tender, non distended Neuro: left hemiparesis 4/5 upper and lower, no significant dysarthria or facial droop Psych: appropriate affect, appropriate insight Results Labs 09/10/23 10:06 09/10/23 10:06 Labs: Laboratory Results - last 24 hr 09/10/23 09/10/23 09:58 10:06 MCV 86.5 MCH 30.4 MCHC 35.2 RDW 12.4 Plt Count 200 D MPV 10.5 Immature Gran % (Auto) 0.3 Neut % (Auto) 56.4 Lymph % (Auto) 34.3 [place] % (Auto) 6.7 Eos % (Auto) 2.0 Baso % (Auto) 0.3 Lymph # (Auto) 2.4 [place] # (Auto) 0.5 Eos # (Auto) 0.1 Baso # (Auto) 0.0 Abs Immat Gran (auto) 0.02 Absolute Neuts (auto) 3.9 Absolute Nucleated RBC 0.000 Nucleated RBC % (auto) 0.0 PT 10.9 L INR 0.9 APTT 29.4 Anion Gap 10 L Estim Creat Clear Calc 97.3 Estimated GFR > 60 POC Glucose 284 H Random Glucose 282 H Calcium 9.1 D Total Creatine Kinase 79 Imaging Radiologist's Impressions: Impressions Head CT 09/10/23 09:51 IMPRESSION: Right thalamic hypodensity suggesting age indeterminate lacunar infarct. MRI may be of use for further evaluation if clinically indicated. Assessment and Plan (1) Stroke: Qualifiers: Laterality of affected vessel: right Status: Acute Plan 55M PMH htn, dm presented with left hemiparesis Acute right thalamic cva Out of window for tpa Aspirin, statin Echo, MRI, carotid duplex Monitor tele Neuro eval PT, ot check lipids and a1c Diabetes Basal bolus insulin Permissive hypertension DVT prophylaxis with lovenox Full code patient with acute stroke, given DM, htn, at risk for recurrent cva in next 48hrs, therefore, expected to require atleast 2 midnights inpatient Quality Stroke Does the patient have a stroke diagnosis?: Yes Reason for No Anti-thrombotic by Day Two: N/A - Med Ordered VTE Prior VTE?: No VTE Risk Level:: Medical - moderate - high VTE Device Contraindication: Treatment Not Indicated VTE Drug Contraindication: N/A - Med Ordered
[2023-09-10 13:13] VITALS: BP 141/93; PULSE 85; RESP 16; TEMP 36.7; O2SAT 98
--- NOTE | 2023-09-10 13:17 | PC.NURSE ---
Admission status reviewed with pt; pt will have MRI tomorrow to follow up with CT findings- refer to imaging.
--- NOTE | 2023-09-10 13:25 | PC.NURSE ---
Pt provided pillow and warm blanket for comfort. Call placed to kitchen to confirm meal tray status- lunch tray will be sent.
--- NOTE | 2023-09-10 13:45 | PHA.MEDREC ---
Pharmacy Consult ? Medication Reconciliation Pharmacy has completed the medication reconciliation. spoke with patient to confirm medications. he reported that he did not take any medications today.
[2023-09-10 16:28] LABS: Glucose, Whole Blood 258 mg/dL (60-115)
[2023-09-10] MEDS: Insulin Lispro 100 UNIT/ML 3 ML VIAL SUBCUT ×2 (17:02→21:38)
--- NOTE | 2023-09-10 17:21 | PC.NURSE ---
Attempted to call [facility] RN for handoff report; nurse unavailable for report at this time.
[2023-09-10 19:24] VITALS: BP 149/78; PULSE 94; RESP 18; TEMP 36.2; O2SAT 98
[2023-09-10 19:36] VITALS: BMI 28.5
[2023-09-10 21:12] LABS: Glucose, Whole Blood 177 mg/dL (60-115)
[2023-09-10] MEDS: Atorvastatin Calcium 80 MG TABLET PO (21:37)
[2023-09-10] MEDS: Insulin Glargine,Hum.rec.anlog 100 UNIT/ML 10 ML VIAL 40 UNIT SUBCUT (21:37)
[2023-09-11] VITALS: BP 141/84; PULSE 86; RESP 16; TEMP 36.1; O2SAT 95
[2023-09-11 04:00] VITALS: BP 144/81; PULSE 92; RESP 16; TEMP 37.1; O2SAT 96
--- NOTE | 2023-09-11 04:36 | PC.NURSE ---
Pt is a neuro check every 2 hours. Alert and oriented x4. Speech is clear. Reported feeling of numbness and weakness to his left arm and legs. Little unsteady/ wabbly with ambulation. walker offered. Bed alarm activated for safety.
[2023-09-11 06:30] LABS: Hematocrit 43.7 % (42.0-52.0); Hemoglobin 15.4 g/dl (14.0-18.0); Mean Corpuscular HGB Conc 35.2 g/dl (31.0-36.0); Mean Corpuscular Hemoglobin 30.6 pg (27.0-33.0); Mean Corpuscular Volume 86.9 fL (80.0-98.0); Mean Platelet Volume 10.4 fL (9.4-12.4); Platelet Count 206 X10*3/uL (160-400); Red Blood Count 5.03 X10*6/uL (4.60-5.80); Red Cell Distribution Width 12.6 % (11.0-16.0); White Blood Count 7.6 X10*3/uL (4.8-10.8)
[2023-09-11 06:39] LABS: Anion Gap 13 (12-20); Blood Urea Nitrogen 17 mg/dL (9-16); Calcium 8.9 mg/dL (8.4-10.2); Carbon Dioxide 25 mmol/L (22-29); Chloride 103 mmol/L (96-108); Cholesterol 235 mg/dL (<200); Creatinine Clr Calc Pharmacy 101.7; Estimated Glomerular Filt Rate > 60; Glucose Fasting 218 mg/dL (60-99); HDL Cholesterol 40 mg/dL (>40); LDL Cholesterol Calculated 154 mg/dL (<100); Potassium 3.9 mmol/L (3.3-5.1); Sodium 137 mmol/L (135-145); Triglycerides 206 mg/dL (<150)
--- NOTE | 2023-09-11 07:00 | CA_ITS ---
Transthoracic Echocardiogram Patient (Last, First, Middle): Giuseppe Mercer, Gender: Male Date of : 1965 Age: 57 Procedure Date: 09/11/2023 Procedure Type: Transthoracic Echocardiogram [place] [facility] [place] Height: 172.72 cm Weight: 84.82 kg BSA: 1.99 m2 Heart Rate: 85 bpm BP: 144 / 81 mmHg Converter Operator: ALEXEI Referring MD: Talha Maier MD Symptoms: cva Study Quality: Fair ECG Rhythm: Sinus Conclusions: - The left ventricular systolic function is normal. The visually estimated ejection fraction is between 55-60%. - No obvious valvular pathology seen on this study. - There is no evidence of interatrial shunt by agitated saline. Findings Left Ventricle Normal left ventricular cavity size. The left ventricular systolic function is normal. The visually estimated ejection fraction is between 55-60%. There is no evidence of regional wall motion abnormalities. Evidence suggests grade I (mild) diastolic dysfunction. There is mild septal asymmetric hypertrophy. Right Ventricle Normal right ventricular cavity size and systolic function. Atria Both atria are normal in size. There is no evidence of interatrial shunt by agitated saline. (rest and valsalva). Aortic Valve There is a normal trileaflet aortic valve. There is no aortic valve stenosis. There is no aortic valve regurgitation. Mitral Valve The mitral valve appears normal. There is trace mitral valve regurgitation. There is no mitral valve stenosis. Pulmonic Valve The pulmonic valve is likely normal. Tricuspid Valve There is no tricuspid valve regurgitation. Tricuspid regurgitation envelope is inadequate for calculation of right ventricular systolic pressure. Great Vessels The asc aorta is normal in size. Small plaque is seen in the sino tubular ridge. Venous The inferior vena cava is normal in size and collapses greater than 50% with inspiration. Pericardium/Pleural There is no evidence of pericardial effusion. Prior Study Comparison No prior study available for comparison. Recommendations, Care & Conclusions No obvious valvular pathology seen on this study. Measurements 2D Linear Measurements IVSd: 1.08 0.6-0.9/0.6-1.0 cm LVIDd: 4.53 3.9-5.3/4.2-5.9 cm LVIDd Index: 2.28 2.4-3.2/2.2-3.1 cm/m2 LVIDs: 2.38 2.0-3.6 cm LVPWd: 0.93 0.7-1.1 cm LA Diam: 3.50 2.7-3.8/3.0-4.0 cm LAIDs Index: 1.76 1.5-2.3 cm/m2 LV Mass: 194.50 67-162/88-224 g LV Mass Index: 97.74 43-95/49-115 g/m2 LVOT Diam: 1.90 3.0+(-)1.3 cm 2D Systolic Function EF 4C: 54.70 >55% EF 2C: 53.90 >55% EF BiP: 52.20 >55% Mitral Valve MV Pk E: 0.76 MV PK A: 1.12 MV Decel Time: 167.00 E/A: 0.70 E'Lateral: 6.64 E'Medial: 5.22 E/E' Med: 14.50 E/E' Lat: 11.40 PHT: 49.00 MVA PHT: 4.49 Decel [place]ferro: 4.53 Aortic Valve AoV Pk Erwin: 1.34 AoV Mn Erwin: 1.02 AoV VTI: 0.28 AoV Pk Grad: 7.00 Aov Mn Grad: 5.00 EVELINA Cont.VTI: 1.84 LVOT LVOT Pk Erwin: 0.94 LVOT Mn Erwin: 0.66 LVOT VTI: 0.18 LVOT Pk Grad: 4.00 LVOT Mn Grad: 2.00 LVOT Diam: 1.90 LVOT Area: 2.84 Diastolic Function MV Pk E: 0.76 MV Pk A: 1.12 E/A: 0.70 E'Medial: 5.22 E/E' Med: 14.50 E' Laterial: 6.64 E/E' Lat: 11.40 Right Ventricle TAPSE (mm): 22.60 TVS' Erwin: 12.60 Tricuspid Valve RA Press: 3.00 Great Vessels Aorta Sinus of Valsalva: 3.30 2.0-3.5 cm Ao Asc: 3.40 2.1-3.4 cm Pulmonary Valve PV Pk Erwin: 0.95 Peak PV Grad: 4.00 Updated in Other Vendor System with Status of Final Kenny Washington MD electronically signed on 09/11/2023 3:29:58 PM with status of Final
[2023-09-11 07:01] LABS: Estimated Average Glucose 318 mg/dL; Hemoglobin A1c % 12.7 % (<6.0)
[2023-09-11 07:45] LABS: Glucose, Whole Blood 200 mg/dL (60-115)
[2023-09-11 07:59] VITALS: BP 147/87; PULSE 89; RESP 18; TEMP 36.2; O2SAT 97
--- NOTE | 2023-09-11 08:59 | MHC.CM.PN ---
CM met with Patient at bedside. Patient lives in a duplex with his and he was functionally independent and working [employer]. Home self care is the goal and CM has initiated and will follow for dc planning. PCP is from [facility].
--- NOTE | 2023-09-11 09:03 | PM.NEUROCN ---
History of Present Illness Data of Consult Service Date: 09/11/23 Primary Care Provider: [facility] Reason for consult: Left sided numbness and weakness x2 -3 days This is a 55 yr old man with many yr h/o DM on Lantus with modertae control, no HBP or hyperlipidemia, presented with 2-3 days of left side numbness and weakness that lead to 2 falls so he decided to come to the ER. He woke with left hemiparesis and left facial numbness but no definite dysarthria. He was having difficulty walking and significant left lower extremity weakness so he decided to come to the ED. CT head shows modest size subacute infarct of right lateral thalamus and posterior internal capsule. Sx have improved but not back to normal.. Review of Systems Review of Systems: Yes all other systems are reviewed and are negative [facility] Past Medical History Medical History HLD (hyperlipidemia) HTN (hypertension) T2DM (type 2 diabetes mellitus) Family History Family History Father Diabetes Mother Diabetes Paternal Grandfather Diabetes Surgical History Surgical History Hx of colonoscopy (08/13/18) Hx of circumcision Social History Social History Household Members: Significant Other Housing: House Do you presently have visiting nurse or other home services: No Alcohol intake: never Patient Tobacco Use Status: Never used Tobacco Smoked in Last 30 Days: No Use of substances other than those prescribed or required for medical reasons: No Currently Displaying Signs/Symptoms of Drug Intoxication Withdrawal: No Have you been hit, kicked, punched, or otherwise hurt by someone within the past year? If so, by whom?: No Do you feel safe in your current relationship?: Yes Is there a partner from a previous relationship who is making you feel unsafe now?: No Are you made to feel afraid or neglected: No Advance Directives: No Advance Directives Information Provided: Yes Do you have thoughts of harming others: None Do you have a plan to hurt others: No Plan Recently lost weight without trying: No How much weight loss: Not applicable Eating poorly because of decreased appetite: No Nutrition screen score: 0 Nutrition Risks: No Nutritional Risk Poor oral hygiene: No service: No Meds Allergies Allergy/AdvReac Type Severity Reaction Status Date / Time SEASONAL ALLERGIES Allergy Mild RUNNY NOSE Uncoded 09/10/23 08:34 Active Medications: Current Medications Aspirin (Aspirin Enteric Coated 81 Mg Tablet.Dr) 81 mg PO DAILY [facility] Atorvastatin Calcium (Atorvastatin Calcium 80 Mg Tablet) 80 mg PO BEDTIME [facility] Last Admin: 09/10/23 21:37 Dose: 80 mg Dextrose (Dextrose 50 % 25 Gm/50 Ml Syringe) 25 gm IVPUSH Q15M PRN; Protocol PRN Reason: per Hypoglycemia Standing Ord. Enoxaparin Sodium (Enoxaparin Sodium 40 Mg/0.4 Ml Syringe) 40 mg SUBCUT Q24H [facility] Glucose (Glucose Gel 15 Gm Gel..Gram.) 15 gm PO Q15M PRN; Protocol PRN Reason: per Hypoglycemia Standing Ord. Insulin Glargine (Insulin Glargine,Hum.Rec.Anlog 100 Unit/Ml 10 Ml Vial) 40 unit SUBCUT BEDTIME [facility] Last Admin: 09/10/23 21:37 Dose: 40 unit Insulin Human Lispro (Insulin Lispro 100 Unit/Ml 3 Ml Vial) 0 unit SUBCUT QIDACHS [facility]; Protocol Last Admin: 09/10/23 21:38 Dose: 2 unit Home Medications Medication Instructions Recorded Confirmed Last Taken Type insulin glargine 100 unit/mL (3 80 unit subcut BEDTIME 12/27/21 09/10/23 Unknown History mL) subcutaneous pen (Lantus Solostar U-100 Insulin) enalapril maleate 10 mg tablet 10 mg PO DAILY 09/10/23 09/10/23 Unknown History multivitamin 1 tab PO DAILY 09/10/23 09/10/23 Unknown History Physical Exam Vital Signs: Vital Signs: Last Vital Signs Temp 97.2 F 09/11/23 07:59 Pulse 89 09/11/23 07:59 Resp 18 09/11/23 07:59 BP 147/87 H 09/11/23 07:59 Pulse Ox 97 09/11/23 07:59 O2 Del Method Room Air 09/11/23 07:59 BMI result Body Mass Index 28.5 Neuro: Other: Speech is clear with no dysarthria. No field cut or facial drrop. Slight drift of left upper extremity. Left sided minimal weakness 5-/5. Left sided hypesthesia and slow rapid finger tapping on left with dysmetria on left finger to nose test.DTRs hypoactive. Plantars are flexor. Results Labs 09/11/23 05:32 09/11/23 05:32 Labs: Short CBC 09/10/23 09/11/23 Range/Units 10:06 05:32 WBC 6.9 7.6 (4.8-10.8) X10*3/uL Hgb 16.0 15.4 (14.0-18.0) g/dl Hct 45.5 43.7 (42.0-52.0) % Plt Count 200 D 206 (160-400) X10*3/uL BMP 09/10/23 09/11/23 10:06 05:32 Sodium 136 137 Potassium 4.0 3.9 Chloride 102 103 Carbon Dioxide 28 25 BUN 14 17 H Creatinine 0.80 0.84 Calcium 9.1 D 8.9 Cardiac Enzymes 09/10/23 Range/Units 10:06 Total Creatine Kinase 79 (38-174) U/L Assessment and Plan (1) Stroke: Qualifiers: Laterality of affected vessel: right Status: Acute Subacute ischemic infarct of right lateral thalamus and posterior internal capsule from small vessel disease. Recom. Lipid profile. Monitor for HBP. CTA of head and neck, echocardiogram. PT/OT evaluation. Once work up is complete he can be discharged for out pt OT Plan 55M PMH htn, dm presented with left hemiparesis Acute right thalamic cva Out of window for tpa Aspirin, statin Echo, MRI, carotid duplex Monitor tele Neuro eval PT, ot check lipids and a1c Diabetes Basal bolus insulin Permissive hypertension DVT prophylaxis with lovenox Full code patient with acute stroke, given DM, htn, at risk for recurrent cva in next 48hrs, therefore, expected to require atleast 2 midnights inpatient Procedures Date of Service Date of Service: 09/11/23
--- NOTE | 2023-09-11 09:38 | MHC.CM.PN ---
PT is recommending Outpatient services. CM will follow.
[2023-09-11] MEDS: Insulin Lispro 100 UNIT/ML 3 ML VIAL SUBCUT ×2 (10:44→14:41)
[2023-09-11] MEDS: Aspirin Enteric Coated 81 MG TABLET.DR PO (10:44)
[2023-09-11] MEDS: Enoxaparin Sodium 40 MG/0.4 ML SYRINGE SUBCUT (10:44)
[2023-09-11 11:05] VITALS: BP 153/76; PULSE 97; RESP 18; TEMP 37.1; O2SAT 98
[2023-09-11 11:31] LABS: Glucose, Whole Blood 342 mg/dL (60-115)
--- NOTE | 2023-09-11 13:31 | PM.DS ---
DS: Providers Provider Date of Service: 09/11/23 Date of admission: 09/10/23 12:39 Primary care physician: [facility] Consults: 09/10/23 12:39 Consult to Neurology Routine Consulting Provider: Chloe Koch Reason for consultation: cva DS: Diagnosis Discharge Diagnosis (1) Stroke: Status: Acute DS: Summary Hospital Course Hospital Course: from initial hpi: 55M PMH htn, dm presented with left hemiparesis. patient with woke up 2 days prior to presentation with new onset left hemiparesis and left facial numbness with dysarthria. Dysarthria has improved, but patient continues to have difficulty walking and significant left lower extremity weakness so he decided to come to the ED. In ED CT head shows age-indeterminate infarct in right thalamus. hospital course: Patient was admitted for acute right thalamic CVA. He was out of window for tPA. He was started on aspirin statin. Echo was done should be followed up. MRI showed subacute infarct right thalamus. Carotid duplex was unremarkable. Patient will continue PT outpatient. For diabetes continue basal bolus insulin. For hypertension permissive hypertension was allowed and he will restart enalapril discharge. Time Attestation Discharge coordination time: Greater than 30 minutes Quality: Safe Use of Opioids Does Pt have an Active Cancer Diagnosis on the Problem List?: No Quality: Stroke Does the patient have a stroke diagnosis?: Yes Reason for No Anti-thrombotic at DC: N/A - Med Ordered Reason for No Anticoagulant at DC: Drug treatment not indicated Reason Not Initiating IV-Tpa: Drug treatment not indicated Reason for No Anti-thrombotic by Day Two: N/A - Med Ordered Reason for No Statin at DC: N/A - Med Ordered Physical Exam Vital Signs: Vital Signs: Last Vital Signs Temp 98.8 F 09/11/23 11:05 Pulse 97 09/11/23 11:05 Resp 18 09/11/23 11:05 BP 153/76 H 09/11/23 11:05 Pulse Ox 98 09/11/23 11:05 O2 Del Method Room Air 09/11/23 11:05 BMI result Body Mass Index 28.5 mild left hemiparesis DS: Data Data Completed and Pending Labs on day of discharge: Laboratory Results - last 24 hr 09/10/23 09/10/23 09/11/23 16:24 21:05 05:32 WBC 7.6 RBC 5.03 Hgb 15.4 Hct 43.7 MCV 86.9 MCH 30.6 MCHC 35.2 RDW 12.6 Plt Count 206 MPV 10.4 Absolute Nucleated RBC 0.000 Nucleated RBC % (auto) 0.0 Sodium 137 Potassium 3.9 Chloride 103 Carbon Dioxide 25 Anion Gap 13 BUN 17 H Creatinine 0.84 Estim Creat Clear Calc 101.7 Estimated GFR > 60 POC Glucose 258 H 177 H Fasting Glucose 218 H Estimat Average Glucose 318 Hemoglobin A1c % 12.7 H Calcium 8.9 Triglycerides 206 H Cholesterol 235 H LDL Cholesterol, Calc 154 H HDL Cholesterol 40 L 09/11/23 09/11/23 07:14 11:03 WBC RBC Hgb Hct MCV MCH MCHC RDW Plt Count MPV Absolute Nucleated RBC Nucleated RBC % (auto) Sodium Potassium Chloride Carbon Dioxide Anion Gap BUN Creatinine Estim Creat Clear Calc Estimated GFR POC Glucose 200 H 342 H Fasting Glucose Estimat Average Glucose Hemoglobin A1c % Calcium Triglycerides Cholesterol LDL Cholesterol, Calc HDL Cholesterol Discharge Plan Discharge Anticipated Discharge Date/Time: 09/11/23 13:29 Patient Disposition: Home, Self-Care Discharge Diagnosis: right thalamic cva Referrals: [facility] [Primary Care Provider] - 1 Week Discharge Medications: New atorvastatin 80 mg Tablet 80 mg PO BEDTIME Qty: 30 0RF aspirin 81 mg Tablet,Delayed Release (Dr/Ec) 81 mg PO DAILY Qty: 30 0RF Continued multivitamin Tablet 1 tab PO DAILY enalapril maleate 10 mg tablet 10 mg PO DAILY Lantus Solostar U-100 Insulin 100 unit/mL (3 mL) insulin pen 80 unit subcut BEDTIME Discharge Orders: Discharge Order (Routine); Ordered 09/11/23 Ordered By: Talha Maier Diet: Advance to usual diet Activity on Discharge: As tolerated Stand Alone Forms: Patient Portal Discharge page Care Plan Goals: prevent strokes Health Concerns: stroke Plan of Treatment: aspirin, lipitor, pt Assessment: see norm
--- NOTE | 2023-09-11 13:32 | MHC.CM.PN ---
Patient has been medically cleared for dc to home today, self care.
--- NOTE | 2023-09-11 14:43 | PC.NURSE ---
pt discharged home after stroke workup and diagnosisi. pt is well apperaing and insting on walking however allows use of wc to exit. pt is alert talkative, airway patent, breating easy non labored, skin pink warm and dry. ambulating with steady gait. gross neuro intact.
== END 2023-09-11 14:55 | disposition home or self-care (01) | DRG 45 ==
LOC: HO.ED 12:24 → HO.EDOVER 13:02 → HO.IMC 16:35
PROVIDERS: Admitting Provider Internal Medicine; Emergency Provider Emergency Medicine Emergency Medical Services; Visit Provider Internal Medicine
DX: I63.81 Other cerebral infarction due to occlusion or stenosis of small artery (principal); G81.94 Hemiplegia, unspecified affecting left nondominant side; I10 Essential (primary) hypertension; R29.707 NIHSS score 7; E11.9 Type 2 diabetes mellitus without complications; E78.5 Hyperlipidemia, unspecified; R29.810 Facial weakness; Z79.4 Long term (current) use of insulin; Z79.899 Other long term (current) drug therapy
CPT/HCPCS: 36415; 70450; 70551; 80048; 80061; 82550; 82947; 83036; 84484; 85025; 85027; 85610; 85730; 93005; 93306; 93880; 97161; 97165; 99285; J1650

== ENCOUNTER → 2023-09-10 09:22 | Outpatient (BNV) | payer BC, SELFPAY | PROVIDERS: Emergency Provider Emergency Medicine Emergency Medical Services; Visit Provider Internal Medicine | DX: I63.9 Cerebral infarction, unspecified (principal) | CPT/HCPCS: 99223; 99239 ==

== ENCOUNTER 2023-09-10 12:39 | Outpatient (BNV) | payer BC, SELFPAY | END 2023-09-11 07:00 | PROVIDERS: Admitting Provider Internal Medicine; Emergency Provider Emergency Medicine Emergency Medical Services; Visit Provider Internal Medicine | DX: I42.9 Cardiomyopathy, unspecified (principal); I51.9 Heart disease, unspecified | CPT/HCPCS: 93306 ==

== ENCOUNTER 2023-10-17 10:37 | Outpatient (RCR) | payer BC, SELFPAY | END 2023-11-13 10:36 | disposition home or self-care (01) | LOC: HO.PT 10:37 | PROVIDERS: PCP General Practice; Visit Provider Emergency Medicine | DX: I63.9 Cerebral infarction, unspecified (principal) | CPT/HCPCS: 97161 ==

== ENCOUNTER 2024-01-21 18:08 | Inpatient (IN) | payer BC, SELFPAY ==
[2024-01-21] VITALS (9 sets, daily range): BP systolic 83–138; BP diastolic 34–72; PULSE 96–133; RESP 15–24; TEMP 36.6–38.9; O2SAT 93–98; BMI 27.2
--- NOTE | 2024-01-21 | ECG_ITS ---
Test Reason : ABD PAIN Blood Pressure : / mmHG Vent. Rate : 126 BPM Atrial Rate : 126 BPM P-R Int : 138 ms QRS Dur : 090 ms QT Int : 298 ms P-R-T Axes : 034 053 031 degrees QTc Int : 431 ms Sinus tachycardia Otherwise normal ECG When compared with ECG of 10-SEP-2023 09:13, No significant change was found Referred By: Generic ED Physician Electronically Signed By:Jos Sanchez
--- NOTE | ~2024-01-21 | CT_ITS ---
EXAMINATION: CT ABDOMEN AND PELVIS WITH CONTRAST CLINICAL INFORMATION: Pain. COMPARISON: 04/02/2023 TECHNIQUE: Multidetector volumetric images were obtained from the superior aspect of the liver through the pubic symphysis following administration 85 mL of Omnipaque 350 intravenous contrast. Sagittal and coronal reformatted images were obtained on the technologist's workstation. Oral contrast: No This CT examination was performed using dose optimization techniques as appropriate, variously including the following: *Automated exposure control *Adjustment of mA and/or kV according to patient size (this includes techniques or standardized protocols for targeted exams where dose is matched to indication/reason for exam; i.e. extremities or head) *Use of iterative reconstruction technique DLP: 488 mGy-cm FINDINGS: LUNG BASES: Minimal dependent atelectasis. LIVER, GALLBLADDER, AND BILIARY TREE: The liver is normal in size, shape, and attenuation. No focal hepatic lesion or biliary ductal dilatation is present. The gallbladder is unremarkable with no evidence of radiopaque gallstones, gallbladder wall thickening, or obvious pericholecystic inflammatory changes. PANCREAS: A few punctate calcifications are present in the pancreatic tail, consistent with sequela of chronic pancreatitis. No evidence of acute pancreatitis. No duct dilatation. SPLEEN: Unremarkable. ADRENAL GLANDS: A 2.2 x 1.8 cm right adrenal nodule with attenuation value of 43 Hounsfield units measured 2 x 1.6 cm on the most remote study from 11/14/2015. This is probably benign. No recommended imaging follow-up. There is a small 6 mm fat-containing left adrenal lesion, consistent with a myelolipoma. No recommended follow-up KIDNEYS AND URETERS: The kidneys are normal in size, shape, and attenuation. No hydronephrosis, hydroureter, or calculi seen. Bilateral perinephric stranding. BLADDER: Unremarkable. GASTROINTESTINAL TRACT: Stomach, small bowel, and colon are normal in caliber. There is circumferential wall thickening in the region of the distal rectum and anus. Otherwise, no bowel wall thickening or surrounding inflammatory moderate stool volume. Appendix is normal. No intraperitoneal free fluid or free air. ABDOMINAL WALL: No significant hernia is appreciated. LYMPH NODES: Normal. VASCULAR: Mild nonspecific disease in the abdominal aorta and iliac arteries. No aneurysmal dilatation. PELVIC VISCERA: Mild prostatomegaly. OSSEOUS STRUCTURES: [id number] degenerative disc disease in the lower lumbar spine at L4-L5. No acute fracture or malalignment. CT/CT abdomen pelvis w IV con IMPRESSION: 1. Circumferential wall thickening in the region of the distal rectum and anus, potentially corresponding to proctitis. Recommend correlation with patient's symptoms. Otherwise, no acute intra-abdominal or intrapelvic abnormalities. 2. A 2.2 cm right adrenal nodule, slightly increased in size from 2 cm on the most remote study from 11/14/2015. This is probably benign. No recommended imaging follow-up. 3. Mild prostatomegaly. 4. Punctate calcifications in the pancreatic tail, consistent with sequela of chronic pancreatitis. No evidence of acute pancreatitis. 5. [id number]-[id number] degenerative disc disease at L4-L5.
--- NOTE | ~2024-01-21 | US_ITS ---
EXAMINATION: US VENOUS ULTRASOUND WITH DOPPLER LOWER EXTREMITY, LEFT CLINICAL INFORMATION: Swelling COMPARISON: None available. TECHNIQUE: Ultrasound of the deep veins is performed from the hip to the calf with compression sonography and color and pulse Doppler assessment. Spectral analysis with color-flow imaging is performed. FINDINGS: There is normal venous compression and respiratory variation and augmented flow. The visualized common femoral vein, superficial femoral vein, profunda femoral vein, popliteal vein, and the trifurcation region shows no evidence of deep venous thrombosis. There is no significant popliteal fossa cyst. If the patient's symptoms persist, followup ultrasound in 5 days 7 days might be of value to exclude proximal propagation from a non-visualized calf vein. US/US venous duplex LE LT IMPRESSION: No DVT demonstrated in the left lower extremity.
--- NOTE | ~2024-01-21 | XR_ITS ---
EXAMINATION: XR CHEST CLINICAL INFORMATION: Sepsis. COMPARISON: 04/02/2023 TECHNIQUE: Frontal view of the chest was obtained. FINDINGS: The cardiomediastinal silhouette is stable. There is no focal lung consolidation or pleural effusion. The bony structures and soft tissues are unremarkable. XR/XR chest 1V IMPRESSION: No acute cardiopulmonary process.
[2024-01-21 18:39] LABS: Basophils Percent Auto 0.2 % (0-2); Hematocrit 40.9 % (42.0-52.0); Hemoglobin 14.4 g/dl (14.0-18.0); Imm Gran Abs Auto 0.15 X10*3/uL (0.00-0.03); Imm Gran Pct Auto 0.6 % (0.0-0.4); Lymphocytes Absolute Auto 1.1 X10*3/uL (1.2-4.9); Lymphocytes Percent Auto 4.7 % (20-40); MANUAL DIFF FLAG SCAN; Mean Corpuscular HGB Conc 35.2 g/dl (31.0-36.0); Mean Corpuscular Hemoglobin 30.3 pg (27.0-33.0); Mean Corpuscular Volume 85.9 fL (80.0-98.0); Mean Platelet Volume 10.3 fL (9.4-12.4); Monocytes Absolute Auto 1.6 X10*3/uL (0.1-1.2); Monocytes Percent Auto 6.6 % (2-11); Neutrophils Absolute Auto 20.5 x10*3/uL (2.0-8.3); Neutrophils Percent Auto 87.9 % (45-73); Platelet Count 202 X10*3/uL (160-400); Red Blood Count 4.76 X10*6/uL (4.60-5.80); Red Cell Distribution Width 12.5 % (11.0-16.0); SCAN SMEAR FLAG 1; White Blood Count 23.4 X10*3/uL (4.8-10.8)
[2024-01-21 18:57] LABS: SLIDE REVIEW VERIFIED
--- NOTE | 2024-01-21 18:59 | PC.NURSE ---
late entry- pt fromh ome reporting of onset of abdominal pain for one day, reporting nausea but denies vomiting and diarrhea. pt reports poor PO intake for the day, reports hard small stools at this time, reports lat BM this morning. pt a&ox4, respirations even and unlabored. 20G placed in left wrist.
[2024-01-21 19:17] LABS: Alanine Aminotransferase 35 U/L (0-40); Albumin Level 3.8 g/dL (3.5-5.0); Alkaline Phosphatase 130 U/L (39-117); Anion Gap 14 (12-20); Aspartate Amino Transferase 18 U/L (5-37); Bilirubin Total 0.6 mg/dL (0.0-1.0); Blood Urea Nitrogen 21 mg/dL (9-16); Calcium 9.1 mg/dL (8.4-10.2); Carbon Dioxide 23 mmol/L (22-29); Chloride 103 mmol/L (96-108); Creatinine Clr Calc Pharmacy 86.4; Estimated Glomerular Filt Rate > 60; Glucose Random 153 mg/dL (60-115); Influenza A PCR NEGATIVE (Negative); Influenza B PCR NEGATIVE (Negative); Potassium 3.3 mmol/L (3.3-5.1); Resp Syncy Virus RNA Qual PCR NEGATIVE (Negative); SARS COV2 PCR INHOUSE NEGATIVE (Negative); Sodium 137 mmol/L (135-145); Total Protein 7.2 g/dL (6.5-8.0); Troponin-I High Sensitivity < 2.7 ng/L (<3.5-35.0)
--- NOTE | 2024-01-21 21:18 | PC.NURSE ---
provider aware of pt temperature and tachycardia, Alverto YOON at bedside, sepsis alert called at this time.
--- NOTE | 2024-01-21 21:26 | PC.NURSE ---
first set of blood cultures obtained at this time and lactic.
--- NOTE | 2024-01-21 21:33 | ED.GENADULT ---
HPI - General Adult General Chief complaint: Abdominal Pain Stated complaint: Abdominal pain Time Seen by Provider: 01/21/24 21:17 Source: patient, RN notes reviewed and old records reviewed Mode of arrival: ambulatory Limitations: no limitations History of Present Illness HPI narrative: 58-year-old male presents for evaluation abdominal pain, nausea vomiting. His symptoms started this morning. He denies any diarrhea or constipation. He reports his abdominal pain is generalized and not localized to 1 area. He reports he has a history of type 2 diabetes. Denies any history abdominal surgeries I was asked to evaluate the patient as he was found to be febrile Related Data Home Medications Medication Instructions Recorded Confirmed insulin glargine 100 unit/mL (3 80 unit subcut BEDTIME 12/27/21 09/10/23 mL) subcutaneous pen (Lantus Solostar U-100 Insulin) enalapril maleate 10 mg tablet 10 mg PO DAILY 09/10/23 09/10/23 multivitamin 1 tab PO DAILY 09/10/23 09/10/23 Previous Rx's Medication Instructions Recorded aspirin 81 mg tablet,delayed 81 mg PO DAILY #30 tabs 09/11/23 release atorvastatin 80 mg tablet 80 mg PO BEDTIME #30 tabs 09/11/23 Allergies Allergy/AdvReac Type Severity Reaction Status Date / Time SEASONAL ALLERGIES Allergy Mild RUNNY NOSE Uncoded 09/10/23 08:34 Review of Systems Constitutional: Constitutional: Reports body ache(s), Reports chills, Reports fever(s), Reports headache(s), Reports malaise, Reports poor appetite and Reports weakness ENT: Reports headache(s) and Denies sore throat Cardiovascular: Cardiovascular: Denies dyspnea Respiratory: Respiratory: Denies cough and Denies dyspnea Gastrointestinal: Gastrointestinal: Reports abdominal pain, Denies belching, Denies melena, Denies hematochezia, Denies GI cramping, Denies diarrhea, Denies loose stools, Reports nausea and Reports vomiting Musculoskeletal: Musculoskeletal: Denies back pain Integumentary/Breasts: Skin/Breast: Denies rash Neurologic: Reports headache(s) and Reports weakness PMFSH Past Medical History Medical History HLD (hyperlipidemia) HTN (hypertension) T2DM (type 2 diabetes mellitus) Surgical History Hx of colonoscopy (08/13/18) Hx of circumcision Family History Family History Father Diabetes Mother Diabetes Paternal Grandfather Diabetes Social History Social History Household Members: Significant Other Housing: House Do you presently have visiting nurse or other home services: No Alcohol intake: never Patient Tobacco Use Status: Never used Tobacco Smoked in Last 30 Days: No Use of substances other than those prescribed or required for medical reasons: No Advance Directives: No Advance Directives Information Provided: No service: No Physical Exam ED Vital Signs: Vital Signs - 24 hr 01/21/24 18:11 01/21/24 18:59 01/21/24 20:55 Temperature 97.9 F 98.9 F 101.2 F H Pulse Rate 133 H 119 H 118 H Respiratory Rate 18 15 24 H Blood Pressure 138/72 115/68 125/57 L Pulse Oximetry 95 97 94 Oxygen Delivery Method Room Air Room Air Room Air 01/21/24 22:23 01/21/24 22:41 01/21/24 23:00 Temperature 102.1 F H 99.2 F Pulse Rate 111 H 111 H 101 H Respiratory Rate 20 20 19 Blood Pressure 102/56 L 86/50 L 83/34 L Pulse Oximetry 95 93 96 Oxygen Delivery Method Room Air Room Air Room Air 01/21/24 23:31 01/21/24 23:49 01/21/24 23:59 Temperature 99.2 F Pulse Rate 100 96 96 Respiratory Rate 17 20 20 Blood Pressure 105/56 L 98/57 L 99/53 L Pulse Oximetry 94 98 94 Oxygen Delivery Method Room Air Room Air 01/22/24 00:18 01/22/24 00:33 01/22/24 00:47 Temperature 98.5 F Pulse Rate 96 100 99 Respiratory Rate 20 18 20 Blood Pressure 94/56 L 102/61 99/66 Pulse Oximetry 97 98 99 Oxygen Delivery Method Room Air Room Air Room Air 01/22/24 01:47 Temperature 99.3 F Pulse Rate 98 Respiratory Rate 17 Blood Pressure 112/78 Pulse Oximetry 97 Oxygen Delivery Method Room Air BMI result Body Mass Index 27.2 Const General: healthy appearing, comfortable, no acute distress, alert and awake Nutritional Appearance: well nourished Orientation/consciousness: patient oriented x3 [facility] Head: Yes normocephalic and Yes atraumatic Eyes Eyelids: Yes eyelids normal Conjunctivae: conjunctivae normal Sclerae: sclerae normal Corneas: corneas normal Pupils: Equal, round and reactive pupils present EOM: EOMs intact bilaterally Neck Neck: Yes full ROM, Yes no meningeal signs, No positive Brudzinski's sign and No positive Kernig's sign Resp Effort & Inspection: normal respiratory effort, able to speak in complete sentences, no audible wheezes and not labored Auscultation: clear to auscultation bilaterally GI Inspection: No distended Palpation (GI): Soft to palpation, not firm, Tenderness to palpation present (GI) (Diffuse, generalized tenderness without focal tenderness. No guarding), no guarding and not rigid Auscultation: normoactive bowel sounds Rectal Exam - Male: Yes visual inspection normal, Yes normal sphincter tone, No Abnormal stool present, No External hemorrhoid(s) present, No fecal impaction and No tenderness Skin Other: Patient has a very small, chronic appearing ulcer to the left heel. No surrounding erythema, no drainage. No other wounds to the feet bilaterally. General skin exam: elasticity normal Neuro General: patient oriented x3 and no meningeal signs Cranial nerves: Yes Equal, round and reactive pupils present and Yes Bilaterally intact EOM present Cognition (Neuro): normal cognition Extrem Other: Moving all extremities well without any obvious deformities Course Reevaluation(s) Reevaluation #1: Patient was re vitals and he was found to be tachycardic, tachypneic, febrile to 101.2 with a blood pressure of 125/57. He meets sepsis criteria. I evaluated the patient in his chief complaint was abdominal pain and vomiting. He denies any cough, shortness of breath, urinary complaints. A sepsis alert was called. He was given Zosyn for presumed intra-abdominal infection. His viral swabs were negative. The patient also has a white count 23.4k Time: 21:25 Reevaluation #2: Patient's blood pressure decreased to 86/50 as he broke his fever. I ordered an additional L of IV fluids for a total of 3 L. this is over 30 per kilos. Still awaiting CT scan at this time patient's lactic acid is normal at 1.0 Time: 22:56 Reevaluation #3: Patient's blood pressure has improved after abdomen and 3 L of fluid. However CT scan shows possible proctitis but no other acute intra abdominal abnormality. Chest x-ray does not show any acute abnormality. A urine straight cath was performed which is pending. The patient denies any headache, neck pain, chest pain. He reports a chronic wound to his left heel which does not appear to be acutely infected. However the remainder of the skin exam does not show any obvious source of infection. Time: 01:09 Additional Reevaluation(s): 1:34 a.m.. Patient's vital signs are now all within normal limits, he reports feeling better. His workup showed only proctitis although his physical exam was unremarkable. Given his significantly abnormal vital signs and severe sepsis earlier in the treatment course I feel the patient warrants overnight observation and will discuss with the hospitalist Medications Administered Discontinued Medications Generic Name Dose Route Start Last Admin Trade Name Freq PRN Reason Stop Dose Admin Acetaminophen 975 mg 01/21/24 21:26 01/21/24 21:38 Acetaminophen 325 Mg Tablet PO 01/21/24 21:27 975 mg ONCE ONE Administration Sodium Chloride 1,000 mls @ 999 mls/hr 01/21/24 21:30 01/21/24 22:37 Ns IV 01/21/24 22:30 Infused .Q1H1M SCOTT Infusion Piperacillin Sod/Tazobactam 50 mls @ 100 mls/hr 01/21/24 21:24 01/21/24 22:14 Sod 3.375 gm/ Sodium Chloride IV 01/21/24 21:53 Infused ONCE ONE Infusion Sodium Chloride 1,000 mls @ 999 mls/hr 01/21/24 22:45 01/21/24 23:41 Ns IV 01/21/24 23:45 Infused .Q1H1M SCOTT Infusion Sodium Chloride 1,000 mls @ 999 mls/hr 01/21/24 23:00 01/21/24 23:59 Ns IV 01/22/24 00:00 Infused .Q1H1M SCOTT Infusion Albumin Human 100 mls @ 133.333 mls/hr 01/21/24 23:00 01/22/24 00:51 Kedbumin 25 % IV 01/22/24 00:44 Infused Q1H SCOTT Infusion Iohexol 85 ml 01/21/24 23:27 01/21/24 23:28 Iohexol 350 Mg/Ml 100 Ml Infus..Btl IV 01/21/24 23:28 85 ml ONCE ONE Administration Ketorolac Tromethamine 30 mg 01/21/24 21:25 01/21/24 21:36 Ketorolac Tromethamine 30 Mg/Ml Vial IVPUSH 01/21/24 21:26 30 mg ONCE ONE Administration Ondansetron HCl 4 mg 01/21/24 21:25 01/21/24 21:36 Ondansetron Hcl 4 Mg/2 Ml Vial IVPUSH 01/21/24 21:26 4 mg ONCE ONE Administration Medical Decision Making Medical Decision Making [facility] Narrative: 58-year-old male presents for evaluation of abdominal pain, vomiting. He meets sepsis criteria. Plan for CT scan, blood cultures, lactic acid. Will get a UA. The patient has no respiratory symptoms whatsoever. His lungs are clear to auscultation will hold chest x-ray. Will have low threshold to add chest x-ray if the abdominal CT scan does not disclose the source of sepsis. Differential Diagnosis Differential Diagnoses: The differential diagnosis associated with the presentation includes Sepsis Acute appendicitis Acute cholecystitis Pancreatitis Diverticulitis Colitis Food poisoning Campylobacter Salmonella UTI Admission/Observation Consideration of admission/observation: Escalation of care including admission/observation considered Consider admission for sepsis Lab Data [facility] Lab Attestation statement: I reviewed the patient's lab results. Leukocytosis of 23.4 K with a significant left shift. No significant anemia. Patient's electrolytes are within normal limits. His BUN is very slightly elevated to 21 with a normal creatinine 0.89. Patient's glucose is 153 with no evidence of DKA. LFTs within normal limits. 01/21/24 18:29 01/21/24 18:29 Labs: Lab Results 01/21/24 01/21/24 01/21/24 Range/Units 18:29 21:27 21:42 WBC 23.4 H (4.8-10.8) X10*3/uL RBC 4.76 (4.60-5.80) X10*6/uL Hgb 14.4 (14.0-18.0) g/dl Hct 40.9 L (42.0-52.0) % MCV 85.9 (80.0-98.0) fL MCH 30.3 (27.0-33.0) pg MCHC 35.2 (31.0-36.0) g/dl RDW 12.5 (11.0-16.0) % Plt Count 202 (160-400) X10*3/uL MPV 10.3 (9.4-12.4) fL Immature Gran % (Auto) 0.6 H (0.0-0.4) % Neut % (Auto) 87.9 H (45-73) % Lymph % (Auto) 4.7 L (20-40) % [place] % (Auto) 6.6 (2-11) % Eos % (Auto) 0.0 (0-4) % Baso % (Auto) 0.2 (0-2) % Lymph # (Auto) 1.1 L (1.2-4.9) X10*3/uL [place] # (Auto) 1.6 H (0.1-1.2) X10*3/uL Eos # (Auto) 0.0 (0.0-0.4) X10*3/uL Baso # (Auto) 0.0 (0.0-0.2) X10*3/uL Abs Immat Gran (auto) 0.15 H (0.00-0.03) X10*3/uL Absolute Neuts (auto) 20.5 H (2.0-8.3) x10*3/uL Absolute Nucleated RBC 0.000 (0.0-0.012) X10*3/uL Nucleated RBC % (auto) 0.0 (0.0-0.2) /100WBC Smear Tech's Comments VERIFIED PT 14.3 H D (11.1-13.3) SEC INR 1.2 H (0.9-1.1) Sodium 137 (135-145) mmol/L Potassium 3.3 (3.3-5.1) mmol/L Chloride 103 (96-108) mmol/L Carbon Dioxide 23 (22-29) mmol/L Anion Gap 14 (12-20) BUN 21 H (9-16) mg/dL Creatinine 0.89 (0.5-1.4) mg/dL Estim Creat Clear Calc 86.4 Estimated GFR > 60 Random Glucose 153 H (60-115) mg/dL Lactic Acid 1.0 (0.5-2.0) mmol/L Calcium 9.1 (8.4-10.2) mg/dL Total Bilirubin 0.6 (0.0-1.0) mg/dL AST 18 (5-37) U/L ALT 35 (0-40) U/L Alkaline Phosphatase 130 H (39-117) U/L Troponin I High Sens < 2.7 (<3.5-35.0) ng/L Total Protein 7.2 (6.5-8.0) g/dL Albumin 3.8 (3.5-5.0) g/dL Urine Color Urine Appearance Urine pH (5.0-9.0) Ur Specific [place] (1.005-1.025) Urine Protein (Neg-Trace) mg/dL Urine Glucose (UA) (Negative) mg/dL Urine Ketones (Negative) mg/dL Urine Blood (Negative) Urine Nitrite (Negative) Ur Leukocyte Esterase (Negative) Urine RBC (0-2) /HPF Urine WBC (0-5) /HPF Ur Squamous Epith Cells (0-2) /HPF Urine Bacteria (None Seen) Hyaline Casts (0-2) /LPF Stool Occult Blood (NEGATIVE) Influenza Type A (PCR) NEGATIVE (Negative) Influenza Type B (PCR) NEGATIVE (Negative) RSV RNA Qual (PCR) NEGATIVE (Negative) SARS-CoV-2 RNA (RT-PCR) NEGATIVE (Negative) Blood Type O Positive Antibody Screen NEGATIVE 01/22/24 01/22/24 Range/Units 00:56 01:48 WBC (4.8-10.8) X10*3/uL RBC (4.60-5.80) X10*6/uL Hgb (14.0-18.0) g/dl Hct (42.0-52.0) % MCV (80.0-98.0) fL MCH (27.0-33.0) pg MCHC (31.0-36.0) g/dl RDW (11.0-16.0) % Plt Count (160-400) X10*3/uL MPV (9.4-12.4) fL Immature Gran % (Auto) (0.0-0.4) % Neut % (Auto) (45-73) % Lymph % (Auto) (20-40) % [place] % (Auto) (2-11) % Eos % (Auto) (0-4) % Baso % (Auto) (0-2) % Lymph # (Auto) (1.2-4.9) X10*3/uL [place] # (Auto) (0.1-1.2) X10*3/uL Eos # (Auto) (0.0-0.4) X10*3/uL Baso # (Auto) (0.0-0.2) X10*3/uL Abs Immat Gran (auto) (0.00-0.03) X10*3/uL Absolute Neuts (auto) (2.0-8.3) x10*3/uL Absolute Nucleated RBC (0.0-0.012) X10*3/uL Nucleated RBC % (auto) (0.0-0.2) /100WBC Smear Tech's Comments PT (11.1-13.3) SEC INR (0.9-1.1) Sodium (135-145) mmol/L Potassium (3.3-5.1) mmol/L Chloride (96-108) mmol/L Carbon Dioxide (22-29) mmol/L Anion Gap (12-20) BUN (9-16) mg/dL Creatinine (0.5-1.4) mg/dL Estim Creat Clear Calc Estimated GFR Random Glucose (60-115) mg/dL Lactic Acid (0.5-2.0) mmol/L Calcium (8.4-10.2) mg/dL Total Bilirubin (0.0-1.0) mg/dL AST (5-37) U/L ALT (0-40) U/L Alkaline Phosphatase (39-117) U/L Troponin I High Sens (<3.5-35.0) ng/L Total Protein (6.5-8.0) g/dL Albumin (3.5-5.0) g/dL Urine Color Dark Yellow Urine Appearance Cloudy Urine pH 5.5 (5.0-9.0) Ur Specific [place] >= 1.030 H (1.005-1.025) Urine Protein 300 (3+) H (Neg-Trace) mg/dL Urine Glucose (UA) >=1000 H (Negative) mg/dL Urine Ketones Trace (Negative) mg/dL Urine Blood Large (3+) H (Negative) Urine Nitrite Negative (Negative) Ur Leukocyte Esterase Trace H (Negative) Urine RBC >20 H (0-2) /HPF Urine WBC 11-20 H (0-5) /HPF Ur Squamous Epith Cells 0-2 (0-2) /HPF Urine Bacteria None Seen (None Seen) Hyaline Casts 0-2 (0-2) /LPF Stool Occult Blood POSITIVE (NEGATIVE) Influenza Type A (PCR) (Negative) Influenza Type B (PCR) (Negative) RSV RNA Qual (PCR) (Negative) SARS-CoV-2 RNA (RT-PCR) (Negative) Blood Type Antibody Screen Critical Care Time Critical Care Time Critical Care Time: Yes Total Critical Care Time: 45 Attestation: Patient met criteria for severe sepsis with to systolic blood pressures less than 90. He was febrile, tachycardic. He had a white count 23.4 K. he was given IV antibiotics that are broad-spectrum, he received aggressive fluid hydration and frequent evaluations Discharge Plan Discharge Clinical Impression: Sepsis, Vomiting Patient Disposition: Admitted As Inpatient
[2024-01-21] MEDS: ondansetron HCL 4 MG/2 ML VIAL IVPUSH (21:36)
[2024-01-21] MEDS: 0.9 % Sodium Chloride 1,000 ML 999 ML IV ×3 (21:36→22:58)
[2024-01-21] MEDS: Ketorolac Tromethamine 30 MG/ML VIAL IVPUSH (21:36)
[2024-01-21] MEDS: Acetaminophen 325 MG TABLET 975 MG PO (21:38)
[2024-01-21] MEDS: Piperacillin Sodium/Tazobactam 3.375 GM in 0.9 % Sodium Chloride 50 ML IV (21:44)
[2024-01-21 22:05] LABS: INTERNATIONAL NORM RATIO 1.2 (0.9-1.1); Prothrombin Time 14.3 SEC (11.1-13.3)
--- NOTE | 2024-01-21 22:42 | PC.NURSE ---
serena YOON aware of pt blood pressure at this time, another IV fluid bolus begun at this time.
--- NOTE | 2024-01-21 23:04 | PC.NURSE ---
Provider aware of pt BP, third liter bolus begun, albumin begun at this time.
[2024-01-21] MEDS: Albumin Human 25 % 100 ML 133.33 ML IV (23:06)
--- NOTE | 2024-01-21 23:18 | PC.NURSE ---
pt to CT at this time.
[2024-01-21] MEDS: iohexoL 350 MG/ML 100 ML INFUS..BTL 85 ML IV (23:28)
[2024-01-22] VITALS (13 sets, daily range): BP systolic 94–145; BP diastolic 44–78; PULSE 90–108; RESP 15–24; TEMP 36.9–38.2; O2SAT 93–99
[2024-01-22] MEDS: Albumin Human 25 % 100 ML 133.33 ML IV (00:05)
--- NOTE | 2024-01-22 01:04 | PC.NURSE ---
pt unable to void at this time, pt straight cathed per provider order, pt tolerated well. 100ml of yellow urine. urine sample sent to lab.
[2024-01-22 01:10] LABS: Appearance Urine Cloudy; Color Urine Dark Yellow; Glucose Urine UA >=1000 mg/dL (Negative); Leukocyte Esterase Urine Trace (Negative); Nitrite Urine Negative (Negative); PH 5.5 (5.0-9.0); Specific Gravity - Urine >= 1.030 (1.005-1.025); UMIC TRIGGER UACC YES; Urine Blood Large (3+) (Negative); Urine Ketones Trace mg/dL (Negative); Urine Protein 300 (3+) mg/dL (Neg-Trace)
[2024-01-22 01:19] LABS: Bacteria Urine None Seen (None Seen); Hyaline Casts Urine 0-2 /LPF (0-2); RBC Urine >20 /HPF (0-2); Squamous Epithelial Cell Urine 0-2 /HPF (0-2); UACC Culture Trigger YES
[2024-01-22 02:00] LABS: OBS Int Ctl Valid YES; OBS1 POSITIVE (NEGATIVE)
[2024-01-22 02:19] LABS: C Reactive Protein 1.75 mg/dL (< or = 0.50)
[2024-01-22] MEDS: 0.9 % Sodium Chloride 1,000 ML 125 ML IVCONT (04:25)
[2024-01-22] MEDS: Acetaminophen 325 MG TABLET 975 MG PO ×2 (04:34→13:51)
--- NOTE | 2024-01-22 04:35 | PC.NURSE ---
per , pt medicated per dec with PRN tylenol for 100.0 fever.
--- NOTE | 2024-01-22 04:40 | P.HPHOSP_ITS ---
History of Present Illness Date of Service: 01/22/24 Attending physician on admission: Joel Patten Chief Complaint: Vomiting Giuseppe Allen is a 58 years old man with past medical history significant for type 2 diabetes mellitus on insulin, stroke, hypertension, GERD and hyperlipidemia presents to the emergency department complaining of nausea, vomiting and lower abdominal pain that started yesterday morning after eating sweets from [employer]. He does have fever and generalized weakness. Denies chills. He denied any diarrhea. Denied any acute urinary symptoms. There is no history of ill contacts or recent travel history. In the ED, he was found to to have fever, 101.1, tachycardia and hypotension. Last blood pressure is 100 90 running. CBC showed leukocytosis of 23.4. Hemoglobin and platelets are normal. There are no electrolyte imbalances. Creatinine 0.89. Glucose is 153. Lactic acid and troponin are negative. Stool for occult blood positive. Urinalysis consistent with urinary tract infection. Viral testing is negative for influenza, RSV and COVID-19. CXR is negative. ED tx: NS 3 L bolus. Zofran 4 mg IV, Toradol 30 mg IV, acetaminophen 975 mg p.o., albumin 100 mL. Review of Systems 2 Review of Systems: All 12 systems were reviewed and normal except as noted in HPI. [facility] Medical History HLD (hyperlipidemia) HTN (hypertension) T2DM (type 2 diabetes mellitus) Family History Father Diabetes Mother Diabetes Paternal Grandfather Diabetes Surgical History Hx of colonoscopy (08/13/18) Hx of circumcision Social History Household Members: Significant Other Housing: House Do you presently have visiting nurse or other home services: No Alcohol intake: never Patient Tobacco Use Status: Never used Tobacco Smoked in Last 30 Days: No Use of substances other than those prescribed or required for medical reasons: No Advance Directives: No Advance Directives Information Provided: No service: No Meds Allergies Allergy/AdvReac Type Severity Reaction Status Date / Time SEASONAL ALLERGIES Allergy Mild RUNNY NOSE Uncoded 09/10/23 08:34 Active Medications: Current Medications Acetaminophen (Acetaminophen 325 Mg Tablet) 975 mg PO Q6H PRN PRN Reason: Fever Last Admin: 01/22/24 04:34 Dose: 975 mg Dextrose (Dextrose 50 % 25 Gm/50 Ml Syringe) 25 gm IVPUSH Q15M PRN; Protocol PRN Reason: per Hypoglycemia Standing Ord. Glucose (Glucose Gel 15 Gm Gel..Gram.) 15 gm PO Q15M PRN; Protocol PRN Reason: per Hypoglycemia Standing Ord. Hydromorphone HCl (Hydromorphone Hcl 1 Mg/Ml Syringe) 0.5 mg IVPUSH Q4H PRN; Protocol PRN Reason: Pain, Severe (Pain Scale 7-10) Sodium Chloride (Ns) 1,000 mls @ 125 mls/hr IVCONT .Q8H [facility] Last Admin: 01/22/24 04:25 Dose: 125 mls/hr Insulin Human Lispro (Insulin Lispro 100 Unit/Ml 3 Ml Vial) 0 unit SUBCUT QIDACHS [facility]; Protocol Ondansetron HCl (Ondansetron Hcl 4 Mg/2 Ml Vial) 4 mg IVPUSH Q8H PRN PRN Reason: Nausea and Vomiting Sodium Chloride (0.9 % Sodium Chloride Flush 3 Ml Syringe) 3 ml IVFLUSH QSHIFT [facility] Home Medications Medication Instructions Recorded Confirmed Last Taken Type insulin glargine 100 unit/mL (3 80 unit subcut BEDTIME 12/27/21 09/10/23 Unknown History mL) subcutaneous pen (Lantus Solostar U-100 Insulin) enalapril maleate 10 mg tablet 10 mg PO DAILY 09/10/23 01/22/24 Unknown History multivitamin 1 tab PO DAILY 09/10/23 09/10/23 Unknown History Physical Exam 2 Vital Signs and Narrative: Vital Signs: Last Vital Signs Temp 100.0 F 01/22/24 03:13 Pulse 100 01/22/24 03:13 Resp 16 01/22/24 03:13 BP 125/70 01/22/24 03:13 Pulse Ox 96 01/22/24 03:13 O2 Del Method Room Air 01/22/24 03:13 BMI result Body Mass Index 27.2 Constitutional - Awake and Alert, No apparent distress. Febrile. Looks uncomfortable and acutely ill. HEENT - Pupils equally round. Normal sclerae. Dry oral mucosa. Heart - RRR. No murmurs Lungs - Normal lung expansion, Normal respiratory effort, No respiratory distress, CTA bilaterally Abdomen - NT / ND; +BS; No rebound or guarding Extremities - no calf tenderness bilaterally, no swelling Musculoskeletal - Normal inspection, normal ROM Skin - Warm/Dry Neurological - Alert & oriented x3. No focal weakness grossly noted. Psychological - Appropriate affect Results Labs 01/21/24 18:29 01/21/24 18:29 Labs: Laboratory Results - last 24 hr 01/21/24 01/21/24 01/21/24 18:29 21:27 21:42 MCV 85.9 MCH 30.3 MCHC 35.2 RDW 12.5 Plt Count 202 MPV 10.3 Immature Gran % (Auto) 0.6 H Neut % (Auto) 87.9 H Lymph % (Auto) 4.7 L [place] % (Auto) 6.6 Eos % (Auto) 0.0 Baso % (Auto) 0.2 Lymph # (Auto) 1.1 L [place] # (Auto) 1.6 H Eos # (Auto) 0.0 Baso # (Auto) 0.0 Abs Immat Gran (auto) 0.15 H Absolute Neuts (auto) 20.5 H Absolute Nucleated RBC 0.000 Nucleated RBC % (auto) 0.0 Smear Tech's Comments VERIFIED PT 14.3 H D INR 1.2 H Anion Gap 14 Estim Creat Clear Calc 86.4 Estimated GFR > 60 Random Glucose 153 H Lactic Acid 1.0 Calcium 9.1 Total Bilirubin 0.6 AST 18 ALT 35 Alkaline Phosphatase 130 H Troponin I High Sens < 2.7 C-Reactive Protein 1.75 H Total Protein 7.2 Albumin 3.8 Urine Color Urine Appearance Urine pH Ur Specific [place] Urine Protein Urine Glucose (UA) Urine Ketones Urine Blood Urine Nitrite Ur Leukocyte Esterase Urine RBC Urine WBC Ur Squamous Epith Cells Urine Bacteria Hyaline Casts Stool Occult Blood Influenza Type A (PCR) NEGATIVE Influenza Type B (PCR) NEGATIVE RSV RNA Qual (PCR) NEGATIVE SARS-CoV-2 RNA (RT-PCR) NEGATIVE Blood Type O Positive Antibody Screen NEGATIVE 01/22/24 01/22/24 00:56 01:48 MCV MCH MCHC RDW Plt Count MPV Immature Gran % (Auto) Neut % (Auto) Lymph % (Auto) [place] % (Auto) Eos % (Auto) Baso % (Auto) Lymph # (Auto) [place] # (Auto) Eos # (Auto) Baso # (Auto) Abs Immat Gran (auto) Absolute Neuts (auto) Absolute Nucleated RBC Nucleated RBC % (auto) Smear Tech's Comments PT INR Anion Gap Estim Creat Clear Calc Estimated GFR Random Glucose Lactic Acid Calcium Total Bilirubin AST ALT Alkaline Phosphatase Troponin I High Sens C-Reactive Protein Total Protein Albumin Urine Color Dark Yellow Urine Appearance Cloudy Urine pH 5.5 Ur Specific [place] >= 1.030 H Urine Protein 300 (3+) H Urine Glucose (UA) >=1000 H Urine Ketones Trace Urine Blood Large (3+) H Urine Nitrite Negative Ur Leukocyte Esterase Trace H Urine RBC >20 H Urine WBC 11-20 H Ur Squamous Epith Cells 0-2 Urine Bacteria None Seen Hyaline Casts 0-2 Stool Occult Blood POSITIVE Influenza Type A (PCR) Influenza Type B (PCR) RSV RNA Qual (PCR) SARS-CoV-2 RNA (RT-PCR) Blood Type Antibody Screen Imaging Radiologist's Impressions: Impressions Abdomen/Pelvis CT 01/21/24 23:30 IMPRESSION: 1. Circumferential wall thickening in the region of the distal rectum and anus, potentially corresponding to proctitis. Recommend correlation with patient's symptoms. Otherwise, no acute intra-abdominal or intrapelvic abnormalities. 2. A 2.2 cm right adrenal nodule, slightly increased in size from 2 cm on the most remote study from 11/14/2015. This is probably benign. No recommended imaging follow-up. 3. Mild prostatomegaly. 4. Punctate calcifications in the pancreatic tail, consistent with sequela of chronic pancreatitis. No evidence of acute pancreatitis. 5. [id number]-[id number] degenerative disc disease at L4-L5. Chest X-Ray 01/22/24 00:15 IMPRESSION: No acute cardiopulmonary process. Assessment and Plan (1) Sepsis: Qualifiers: Sepsis type: sepsis due to unspecified organism Sepsis acute organ dysfunction status: without acute organ dysfunction Qualified Code(s): A41.9 - Sepsis, unspecified organism Status: Acute (2) HLD (hyperlipidemia): Qualifiers: Hyperlipidemia type: unspecified Qualified Code(s): E78.5 - Hyperlipidemia, unspecified Status: Acute (3) HTN (hypertension): Qualifiers: Hypertension type: primary hypertension Qualified Code(s): I10 - Essential (primary) hypertension Status: Acute (4) T2DM (type 2 diabetes mellitus): Status: Acute (5) Proctitis: Status: Acute (6) Stroke: Qualifiers: CVA mechanism: unspecified Qualified Code(s): I63.9 - Cerebral infarction, unspecified Status: Acute (7) GERD (gastroesophageal reflux disease): Qualifiers: Esophagitis presence: esophagitis presence not specified Qualified Code(s): K21.9 - Gastro-esophageal reflux disease without esophagitis Status: Acute (8) Vomiting: Qualifiers: Vomiting type: unspecified Nausea presence: with nausea Qualified Code(s): R11.2 - Nausea with vomiting, unspecified Status: Acute (9) UTI (urinary tract infection): Qualifiers: Urinary tract infection type: acute cystitis Status: Acute Plan Giuseppe Allen is a 58 years old man admitted with: * Pelvic abdominal pain, nausea, vomiting and fever (no diarrhea) secondary to urinary tract infection and proctitis causing severe sepsis. ?food poisoning. Admit to hospitalist service. Keep NPO. Continue IV fluids (NS 3L given in ED). Start treatment with doxycycline and ceftriaxone. Antiemetic therapy as needed. Blood and urine culture obtained -will follow results. Check gonorrhea, chlamydia, HSV, HIV and PRP. * Occult blood in stool likely secondary to proctitis. No ellie bright red blood bleeding per rectum reported by patient. Hold aspirin. * Hypertension. Enalapril on hold due to recent hypotension. * Hyperlipidemia. Continue atorvastatin. * Type 2 diabetes mellitus. Lantus and Jardiance on hold while NPO. Blood glucose checks before meals at bedtime. Insulin sliding scale. * History of stroke. Continue statin. * GERD. Continue PPI. DVT prophylaxis: SCDs Code status: Full Patient will need hospitalization for at least 2 midnights for severe sepsis secondary to UTI and proctitis treatment with IV fluids and IV antibiotics. He will also need close monitoring of vital signs and symptoms. Quality Stroke Does the patient have a stroke diagnosis?: No VTE Prior VTE?: No VTE Risk Level:: Medical - moderate - high VTE Device Contraindication: Treatment Not Indicated VTE Drug Contraindication: N/A - Med Ordered
--- NOTE | 2024-01-22 05:25 | MHC.EDTECH ---
Pt was able to ambulate 75ft to the BR with stand by assistance. Pt was able to urinate.
[2024-01-22 05:45] LABS: Glucose, Whole Blood 177 mg/dL (60-115)
[2024-01-22] MEDS: Lactated Ringers 1,000 ML 125 ML IVCONT ×2 (05:46→17:50)
[2024-01-22 06:13] LABS: Syphilis Screen Nonreactive (Nonreactive)
[2024-01-22 06:21] LABS: Alanine Aminotransferase 33 U/L (0-40); Albumin Level 3.6 g/dL (3.5-5.0); Alkaline Phosphatase 84 U/L (39-117); Anion Gap 14 (12-20); Aspartate Amino Transferase 20 U/L (5-37); Bilirubin Total 0.9 mg/dL (0.0-1.0); Blood Urea Nitrogen 25 mg/dL (9-16); Calcium 7.7 mg/dL (8.4-10.2); Carbon Dioxide 21 mmol/L (22-29); Chloride 106 mmol/L (96-108); Creatinine Clr Calc Pharmacy 78.5; Estimated Glomerular Filt Rate > 60; Glucose Random 191 mg/dL (60-115); Magnesium 1.5 mg/dL (1.6-2.6); Potassium 3.9 mmol/L (3.3-5.1); Sodium 137 mmol/L (135-145); Total Protein 5.9 g/dL (6.5-8.0)
[2024-01-22 06:26] LABS: MANUAL DIFF FLAG NO
[2024-01-22] MEDS: Pantoprazole Sodium 40 MG/10 ML VIAL IVPUSH ×2 (06:44→17:05)
[2024-01-22 06:48] LABS: Basophils Percent Auto 0.2 % (0-2); Eosinophils Percent Auto 0.1 % (0-4); Hematocrit 34.2 % (42.0-52.0); Hemoglobin 11.7 g/dl (14.0-18.0); Imm Gran Abs Auto 0.09 X10*3/uL (0.00-0.03); Imm Gran Pct Auto 0.5 % (0.0-0.4); Lymphocytes Absolute Auto 1.1 X10*3/uL (1.2-4.9); Lymphocytes Percent Auto 6.6 % (20-40); Mean Corpuscular HGB Conc 34.2 g/dl (31.0-36.0); Mean Corpuscular Hemoglobin 30.5 pg (27.0-33.0); Mean Corpuscular Volume 89.3 fL (80.0-98.0); Mean Platelet Volume 11.2 fL (9.4-12.4); Monocytes Absolute Auto 0.9 X10*3/uL (0.1-1.2); Monocytes Percent Auto 5.7 % (2-11); Neutrophils Absolute Auto 14.3 x10*3/uL (2.0-8.3); Neutrophils Percent Auto 86.9 % (45-73); Platelet Count 160 X10*3/uL (160-400); Red Blood Count 3.83 X10*6/uL (4.60-5.80); White Blood Count 16.5 X10*3/uL (4.8-10.8)
[2024-01-22 08:36] LABS: Glucose, Whole Blood 186 mg/dL (60-115)
[2024-01-22] MEDS: Insulin Glargine,Hum.rec.anlog 100 UNIT/ML 10 ML VIAL 20 UNIT SUBCUT (09:21)
[2024-01-22] MEDS: cefTRIAXone sodium 1 GM in 0.9 % Sodium Chloride 50 ML IV (09:21)
--- NOTE | 2024-01-22 09:46 | MHC.CM.ED ---
Attempted to meet with patient in regards to discharge planning. Patient currently sleeping. No family present. Will attempt to meet again. Continue to monitor for d/c needs.
--- NOTE | 2024-01-22 09:53 | PHA.MEDREC ---
Pharmacy Consult ? Medication Reconciliation Pharmacy has completed the medication reconciliation. Spoke to patient and confirmed medication list. Patient confirmed he uses 80 units of lantus at bedtime.
[2024-01-22] MEDS: Doxycycline Hyclate 100 MG in 0.9 % Sodium Chloride 250 ML 166.67 MG IV ×2 (09:57→21:24)
--- NOTE | 2024-01-22 10:03 | HO.PM.IMPN ---
Subjective Subjective Date of Service: 01/22/24 Interval History: f/u on abdominal pain, n/v fever, and finding of proctitis on CT sepsis improved, no longer hypotensive, n/v resoled. No abdominal pain Physical Exam Vital Signs: Vital Signs: Last Vital Signs Temp 98.7 F 01/22/24 09:17 Pulse 96 01/22/24 09:17 Resp 20 01/22/24 09:17 BP 123/71 01/22/24 09:17 Pulse Ox 96 01/22/24 09:17 O2 Del Method Room Air 01/22/24 09:17 BMI result Body Mass Index 27.2 General: AO X 3, no acute distress Resp: CTA bilateral CVS: S1,S2,RRR GI: +BS, NT, no distention Skin: No rash Neuro: motor grossly intact Psych: appropriate affect Objective Data Active Medications Acetaminophen (Acetaminophen 325 Mg Tablet) 975 mg PO Q6H PRN PRN Reason: Fever Last Admin: 01/22/24 04:34 Dose: 975 mg Documented By: LUKAS Atorvastatin Calcium (Atorvastatin Calcium 80 Mg Tablet) 80 mg PO BEDTIME [facility] Dextrose (Dextrose 50 % 25 Gm/50 Ml Syringe) 25 gm IVPUSH Q15M PRN; Protocol PRN Reason: per Hypoglycemia Standing Ord. Enalapril Maleate (Enalapril Maleate 10 Mg Tablet) 10 mg PO DAILY [facility]; Protocol Glucose (Glucose Gel 15 Gm Gel..Gram.) 15 gm PO Q15M PRN; Protocol PRN Reason: per Hypoglycemia Standing Ord. Hydromorphone HCl (Hydromorphone Hcl 1 Mg/Ml Syringe) 0.5 mg IVPUSH Q4H PRN; Protocol PRN Reason: Pain, Severe (Pain Scale 7-10) Doxycycline Hyclate 100 mg/ (Sodium Chloride) 250 mls @ 166.67 mls/hr IV Q12H [facility] Last Admin: 01/22/24 09:57 Dose: 166.67 mls/hr Documented By: KIET Ceftriaxone Sodium 1 gm/ (Sodium Chloride) 50 mls @ 100 mls/hr IV Q24H [facility] Last Admin: 01/22/24 09:21 Dose: 100 mls/hr Documented By: KIET Lactated Ringer's (Lr) 1,000 mls @ 125 mls/hr IVCONT .Q8H [facility] Last Admin: 01/22/24 05:46 Dose: 125 mls/hr Documented By: LUKAS Insulin Human Lispro (Insulin Lispro 100 Unit/Ml 3 Ml Vial) 0 unit SUBCUT QIDACHS [facility]; Protocol Last Admin: 01/22/24 05:47 Dose: Not Given Documented By: LUKAS Non-Admin Reason: No Insulin Coverage Ondansetron HCl (Ondansetron Hcl 4 Mg/2 Ml Vial) 4 mg IVPUSH Q8H PRN PRN Reason: Nausea and Vomiting Pantoprazole Sodium (Pantoprazole Sodium 40 Mg/10 Ml Vial) 40 mg IVPUSH BID@0630,1630 [facility] Last Admin: 01/22/24 06:44 Dose: 40 mg Documented By: LUKAS Sodium Chloride (0.9 % Sodium Chloride Flush 3 Ml Syringe) 3 ml IVFLUSH QSHIFT [facility] Last Admin: 01/22/24 07:28 Dose: Not Given Documented By: KIET Non-Admin Reason: IV Running Labs 01/22/24 04:50 01/22/24 05:31 Labs: Laboratory Results - last 24 hr 01/21/24 01/21/24 01/21/24 18:29 21:27 21:42 MCV 85.9 MCH 30.3 MCHC 35.2 RDW 12.5 Plt Count 202 MPV 10.3 Immature Gran % (Auto) 0.6 H Neut % (Auto) 87.9 H Lymph % (Auto) 4.7 L [place] % (Auto) 6.6 Eos % (Auto) 0.0 Baso % (Auto) 0.2 Lymph # (Auto) 1.1 L [place] # (Auto) 1.6 H Eos # (Auto) 0.0 Baso # (Auto) 0.0 Abs Immat Gran (auto) 0.15 H Absolute Neuts (auto) 20.5 H Absolute Nucleated RBC 0.000 Nucleated RBC % (auto) 0.0 Smear Tech's Comments VERIFIED PT 14.3 H D INR 1.2 H Anion Gap 14 Estim Creat Clear Calc 86.4 Estimated GFR > 60 POC Glucose Random Glucose 153 H Lactic Acid 1.0 Calcium 9.1 Magnesium Total Bilirubin 0.6 AST 18 ALT 35 Alkaline Phosphatase 130 H Troponin I High Sens < 2.7 C-Reactive Protein 1.75 H Total Protein 7.2 Albumin 3.8 Urine Color Urine Appearance Urine pH Ur Specific [place] Urine Protein Urine Glucose (UA) Urine Ketones Urine Blood Urine Nitrite Ur Leukocyte Esterase Urine RBC Urine WBC Ur Squamous Epith Cells Urine Bacteria Hyaline Casts Stool Occult Blood T.pallidum Ab (EIA) Influenza Type A (PCR) NEGATIVE Influenza Type B (PCR) NEGATIVE RSV RNA Qual (PCR) NEGATIVE SARS-CoV-2 RNA (RT-PCR) NEGATIVE Blood Type O Positive Antibody Screen NEGATIVE 01/22/24 01/22/24 01/22/24 00:56 01:48 04:50 MCV 89.3 MCH 30.5 MCHC 34.2 RDW 13.0 Plt Count 160 MPV 11.2 Immature Gran % (Auto) 0.5 H Neut % (Auto) 86.9 H Lymph % (Auto) 6.6 L [place] % (Auto) 5.7 Eos % (Auto) 0.1 Baso % (Auto) 0.2 Lymph # (Auto) 1.1 L [place] # (Auto) 0.9 Eos # (Auto) 0.0 Baso # (Auto) 0.0 Abs Immat Gran (auto) 0.09 H Absolute Neuts (auto) 14.3 H Absolute Nucleated RBC 0.000 Nucleated RBC % (auto) 0.0 Smear Tech's Comments PT INR Anion Gap Estim Creat Clear Calc Estimated GFR POC Glucose Random Glucose Lactic Acid Calcium Magnesium Total Bilirubin AST ALT Alkaline Phosphatase Troponin I High Sens C-Reactive Protein Total Protein Albumin Urine Color Dark Yellow Urine Appearance Cloudy Urine pH 5.5 Ur Specific [place] >= 1.030 H Urine Protein 300 (3+) H Urine Glucose (UA) >=1000 H Urine Ketones Trace Urine Blood Large (3+) H Urine Nitrite Negative Ur Leukocyte Esterase Trace H Urine RBC >20 H Urine WBC 11-20 H Ur Squamous Epith Cells 0-2 Urine Bacteria None Seen Hyaline Casts 0-2 Stool Occult Blood POSITIVE T.pallidum Ab (EIA) Influenza Type A (PCR) Influenza Type B (PCR) RSV RNA Qual (PCR) SARS-CoV-2 RNA (RT-PCR) Blood Type Antibody Screen 01/22/24 01/22/24 01/22/24 05:31 05:40 08:32 MCV MCH MCHC RDW Plt Count MPV Immature Gran % (Auto) Neut % (Auto) Lymph % (Auto) [place] % (Auto) Eos % (Auto) Baso % (Auto) Lymph # (Auto) [place] # (Auto) Eos # (Auto) Baso # (Auto) Abs Immat Gran (auto) Absolute Neuts (auto) Absolute Nucleated RBC Nucleated RBC % (auto) Smear Tech's Comments PT INR Anion Gap 14 Estim Creat Clear Calc 78.5 Estimated GFR > 60 POC Glucose 177 H 186 H Random Glucose 191 H Lactic Acid Calcium 7.7 L D Magnesium 1.5 L Total Bilirubin 0.9 AST 20 ALT 33 Alkaline Phosphatase 84 Troponin I High Sens C-Reactive Protein Total Protein 5.9 L Albumin 3.6 Urine Color Urine Appearance Urine pH Ur Specific [place] Urine Protein Urine Glucose (UA) Urine Ketones Urine Blood Urine Nitrite Ur Leukocyte Esterase Urine RBC Urine WBC Ur Squamous Epith Cells Urine Bacteria Hyaline Casts Stool Occult Blood T.pallidum Ab (EIA) Nonreactive Influenza Type A (PCR) Influenza Type B (PCR) RSV RNA Qual (PCR) SARS-CoV-2 RNA (RT-PCR) Blood Type Antibody Screen Assessment and Plan (1) UTI (urinary tract infection): Status: Acute (2) Proctitis: Status: Acute (3) Vomiting: Status: Acute (4) T2DM (type 2 diabetes mellitus): Status: Acute (5) HTN (hypertension): Status: Acute (6) HLD (hyperlipidemia): Status: Acute Plan Giuseppe Allen is a 58 years old man admitted with: Pelvic abdominal pain, nausea, vomiting and fever (no diarrhea) secondary to urinary tract infection and proctitis causing severe sepsis. ?food poisoning. Overall better, sepsis resolved. -IVF -IVAbx with Ceftriaxone, Doxy. Add Flagyl -follow up on cultures -advance diet -Screening for gonorrhea, chlamydia, HSV, HIV and PRP peingind Occult blood in stool likely secondary to proctitis. No ellie bright red blood bleeding per rectum reported by patient. Hold aspirin. Hypertension. Enalapril on hold due to recent hypotension. Hyperlipidemia. Continue atorvastatin. Type 2 diabetes mellitus. Takes Jardiance and Lantus 80 at bedtime, give 20 of lantus this am, and if tolerating diet, 30 to 40 tonight Jardiance . Blood glucose checks before meals at bedtime. Insulin sliding scale. History of stroke. Continue statin. GERD. Continue PPI. DVT Prophylaxis:--device use d/t reproted blood in stool need for inpatient: Sepsis treatment with IV Abx, IVF for Hypotension and close monitoring for organ dysfunction Quality Stroke Does the patient have a stroke diagnosis?: No VTE Prior VTE?: No VTE Risk Level:: Medical - moderate - high VTE Device Contraindication: Treatment Not Indicated VTE Drug Contraindication: N/A - Med Ordered
[2024-01-22] MEDS: metroNIDAZOLE/NS 500 MG/100 ML PIGGYBACK 100 MG IV (11:32)
--- NOTE | 2024-01-22 12:14 | PM.GICN ---
History of Present Illness Data of Consult Service Date: 01/22/24 Requesting physician: [facility] Primary Care Provider: Jamia Cedeno MD HPI Reason for consult: proctitis 58 years old man with hx of type 2 diabetes mellitus on insulin, stroke, hypertension, GERD and hyperlipidemia who I am seeing for assessment for abn imaging He initially presented with nausea, non bloody emesis and 5/10 mid abdominal crampy abdominal pain, without any exacerbating or relieving factors and no radiation. He feels much better today and appetite has improved. Denies rectal bleeding or melena, no nsaid use. This may have occurred after eating [employer]. He did notice fever and weakness. No dysuria, and no history of ill contacts or recent travel history. Labs: CBC showed leukocytosis of 23.4. Hemoglobin and platelets--normal on admission, HGB now 11. Creatinine 0.89. Glucose is 153. Lactic acid and troponin are negative. Stool for occult blood positive. Urinalysis pos for large blood and protein. Viral testing negative for influenza, RSV and COVID-19. IMAGING: CXR is negative. CT: proctitis , chronic pancreatitis, degen spine changes Review of Systems Review of Systems: Constitutional : No Weight loss ENT/Mouth : No sore throat, No Rhinorrhea Eyes: No Swelling, No Redness Cardiovascular : No Chest Pain, No SOB, No Edema Respiratory : No Cough, No Sputum, No Wheezing Gastrointestinal : see HPI Genitourinary : NO Dysuria, No Urinary Frequency, No Hematuria, No Urgency Musculoskeletal : + joint pain, No Myalgias, No Joint Swelling Skin : No Skin Lesions, No rash Neuro : No Weakness, No Numbness, No Dizziness, No Headache Psych : No Anxiety/Panic, No Depression Heme/Lymph: No Bruising, No Lymphadenopathy Endocrine : No Polyuria, No Polydipsia All other systems reviewed and are negative. [facility] Past Medical History Medical History HLD (hyperlipidemia) HTN (hypertension) T2DM (type 2 diabetes mellitus) Family History Family History Father Diabetes Mother Diabetes Paternal Grandfather Diabetes Surgical History Surgical History Hx of colonoscopy (08/13/18) Hx of circumcision Social History Social History Household Members: Significant Other Housing: House Do you presently have visiting nurse or other home services: No Alcohol intake: never Patient Tobacco Use Status: Never used Tobacco Smoked in Last 30 Days: No Use of substances other than those prescribed or required for medical reasons: No Advance Directives: No Advance Directives Information Provided: No Nutrition Risks: No Nutritional Risk service: No Meds Allergies Allergy/AdvReac Type Severity Reaction Status Date / Time SEASONAL ALLERGIES Allergy Mild RUNNY NOSE Uncoded 09/10/23 08:34 Active Medications: Current Medications Acetaminophen (Acetaminophen 325 Mg Tablet) 975 mg PO Q6H PRN PRN Reason: Fever Last Admin: 01/22/24 04:34 Dose: 975 mg Atorvastatin Calcium (Atorvastatin Calcium 80 Mg Tablet) 80 mg PO BEDTIME [facility] Dextrose (Dextrose 50 % 25 Gm/50 Ml Syringe) 25 gm IVPUSH Q15M PRN; Protocol PRN Reason: per Hypoglycemia Standing Ord. Enalapril Maleate (Enalapril Maleate 10 Mg Tablet) 10 mg PO DAILY [facility]; Protocol Last Admin: 01/22/24 10:08 Dose: Not Given Glucose (Glucose Gel 15 Gm Gel..Gram.) 15 gm PO Q15M PRN; Protocol PRN Reason: per Hypoglycemia Standing Ord. Hydromorphone HCl (Hydromorphone Hcl 1 Mg/Ml Syringe) 0.5 mg IVPUSH Q4H PRN; Protocol PRN Reason: Pain, Severe (Pain Scale 7-10) Doxycycline Hyclate 100 mg/ (Sodium Chloride) 250 mls @ 166.67 mls/hr IV Q12H [facility] Last Admin: 01/22/24 09:57 Dose: 166.67 mls/hr Ceftriaxone Sodium 1 gm/ (Sodium Chloride) 50 mls @ 100 mls/hr IV Q24H [facility] Last Infusion: 01/22/24 10:00 Dose: Infused Lactated Ringer's (Lr) 1,000 mls @ 125 mls/hr IVCONT .Q8H [facility] Last Admin: 01/22/24 05:46 Dose: 125 mls/hr Metronidazole (Flagyl) 500 mg in 100 mls @ 100 mls/hr IV BID [facility] Last Admin: 01/22/24 11:32 Dose: 100 mls/hr Insulin Glargine (Insulin Glargine,Hum.Rec.Anlog 100 Unit/Ml 10 Ml Vial) 40 unit SUBCUT BEDTIME [facility] Insulin Human Lispro (Insulin Lispro 100 Unit/Ml 3 Ml Vial) 0 unit SUBCUT QIDACHS [facility]; Protocol Last Admin: 01/22/24 05:47 Dose: Not Given Ondansetron HCl (Ondansetron Hcl 4 Mg/2 Ml Vial) 4 mg IVPUSH Q8H PRN PRN Reason: Nausea and Vomiting Pantoprazole Sodium (Pantoprazole Sodium 40 Mg/10 Ml Vial) 40 mg IVPUSH BID@0630,1630 [facility] Last Admin: 01/22/24 06:44 Dose: 40 mg Sodium Chloride (0.9 % Sodium Chloride Flush 3 Ml Syringe) 3 ml IVFLUSH QSHIFT [facility] Last Admin: 01/22/24 07:28 Dose: Not Given Home Medications Medication Instructions Recorded Confirmed Last Taken Type insulin glargine 100 unit/mL (3 80 unit subcut BEDTIME 12/27/21 01/22/24 01/20/24 History mL) subcutaneous pen (Lantus Solostar U-100 Insulin) enalapril maleate 10 mg tablet 10 mg PO DAILY 09/10/23 01/22/24 01/20/24 History multivitamin 1 tab PO DAILY 09/10/23 01/22/24 01/20/24 History empagliflozin 10 mg tablet 10 mg PO DAILY 01/22/24 01/22/24 01/20/24 History (Jardiance) Physical Exam Vital Signs: Vital Signs: Last Vital Signs Temp 98.7 F 01/22/24 09:17 Pulse 96 01/22/24 09:17 Resp 20 01/22/24 09:17 BP 123/71 01/22/24 09:17 Pulse Ox 96 01/22/24 09:17 O2 Del Method Room Air 01/22/24 09:17 BMI result Body Mass Index 27.2 EXAM: GENERAL: The patient is well developed and nontoxic. VITAL SIGNS:see workflow HEENT: Nonicteric sclerae, PERRLA, EOMI. Oropharynx clear. Moist mucous membranes. Conjunctivae appear well perfused. No thyroid mass. CHEST: Chest wall is nontender. HEART: Regular rate and rhythm without murmurs. LUNGS: Clear to auscultation bilaterally. ABDOMEN: Soft, positive bowel sounds, nontender, no organomegaly.no flank tenderness SKIN: No rash, no excessive bruising, petechiae, or purpura. NEUROLOGIC: Cranial nerves II-XII intact without motor/sensory deficit. Psych: normal affect Results Labs 01/22/24 04:50 01/22/24 05:31 Labs: Short CBC 01/21/24 01/22/24 Range/Units 18:29 04:50 WBC 23.4 H 16.5 H (4.8-10.8) X10*3/uL Hgb 14.4 11.7 L (14.0-18.0) g/dl Hct 40.9 L 34.2 L (42.0-52.0) % Plt Count 202 160 (160-400) X10*3/uL BMP 01/21/24 01/22/24 18:29 05:31 Sodium 137 137 Potassium 3.3 3.9 Chloride 103 106 Carbon Dioxide 23 21 L BUN 21 H 25 H Creatinine 0.89 0.98 Calcium 9.1 7.7 L D Liver Function 01/21/24 01/22/24 Range/Units 18:29 05:31 Total Bilirubin 0.6 0.9 (0.0-1.0) mg/dL AST 18 20 (5-37) U/L ALT 35 33 (0-40) U/L Alkaline Phosphatase 130 H 84 (39-117) U/L Albumin 3.8 3.6 (3.5-5.0) g/dL Urine 01/22/24 Range/Units 00:56 Urine Color Dark Yellow Urine Appearance Cloudy Urine pH 5.5 (5.0-9.0) Ur Specific [place] >= 1.030 H (1.005-1.025) Urine Protein 300 (3+) H (Neg-Trace) mg/dL Urine Glucose (UA) >=1000 H (Negative) mg/dL Imaging CT scan - abdomen: Attestation: I personally reviewed and interpreted this imaging study as follows: (proctitis) Assessment and Plan (1) Proctitis: Status: Acute Plan 1/ Proctitis, maybe infectious, inflammatory or due to internal trauma from lifestyle --maybe causing his pain, infectious w/u pending PLAN: 1/ colonoscopy tomorrow 2/ keep on clears today 3/ await G/C tests Procedures Date of Service Date of Service: 01/22/24
[2024-01-22 13:43] LABS: Glucose, Whole Blood 148 mg/dL (60-115)
--- NOTE | 2024-01-22 18:29 | MHC.EDTECH ---
Patient given dinner tray
[2024-01-22 18:43] LABS: Glucose, Whole Blood 271 mg/dL (60-115)
[2024-01-22] MEDS: Insulin Lispro 100 UNIT/ML 3 ML VIAL SUBCUT ×2 (18:45→21:24)
--- NOTE | 2024-01-22 19:39 | PC.NURSE ---
assumed care of pt 1915.
--- NOTE | 2024-01-22 20:30 | PC.NURSE ---
poc [address] Sanders to hold lantus insulin as pt will be NPO for procedure in am. to continue with Lispro administration; poc 231 = 4U per sliding scale however verbal order from Dr. Sanders to administer 5U. repeated back to Dr. Sanders.
--- NOTE | 2024-01-22 20:43 | MHC.CM.ED ---
CM met with admitted patient with bed assignment pending. Pt has commercial insurance and is employed. Pt is a electrical superintendent. Lives with HCP/spouse John Johansen ([phone]). HCP is on file. Pt uses no DME or services. PCP is verified. THRIVE assessment negative. D/C plan: Home without services. Pt to arrange transportation home. CM will follow for discharge planning.
[2024-01-22] MEDS: Atorvastatin Calcium 80 MG TABLET PO (21:24)
[2024-01-22] MEDS: PEG 3350/Na Sulf,Bicarb,Cl/KCL 4,000 ML SOLN.RECON 240 ML PO ×11 (21:25→22:56)
--- NOTE | 2024-01-22 22:17 | PC.NURSE ---
pt drinking solution per mar tolerating po. pt denies pain at this time. pt set up to easily be able to move to the bathroom moved closer to bed 13.
--- NOTE | 2024-01-22 23:01 | PC.NURSE ---
pt was able to tolerate majority of drink per mar however pt had vomiting episode. Dr. Roberts notified. pt refusing to continue drinking solution. pt denies pain at this time. nad. resting comfortably in stretcher. call wayne within reach.
[2024-01-23] VITALS (10 sets, daily range): BP systolic 85–147; BP diastolic 50–75; PULSE 74–99; RESP 16–20; TEMP 36.4–37.2; O2SAT 94–100; BMI 28.8
--- NOTE | 2024-01-23 00:01 | PC.NURSE ---
pt had large bowel movement; diarrhea. pt provided bath wipes and change of clothes as had incontinent episode. bedding changed. commode provided in room for convenience. nad. call wayne within reach.
[2024-01-23] MEDS: metroNIDAZOLE/NS 500 MG/100 ML PIGGYBACK 100 MG IV ×3 (00:22→22:19)
[2024-01-23 00:25] LABS: Glucose, Whole Blood 155 mg/dL (60-115)
[2024-01-23] MEDS: Lactated Ringers 1,000 ML 125 ML IVCONT (05:24)
[2024-01-23] MEDS: Pantoprazole Sodium 40 MG/10 ML VIAL IVPUSH ×2 (05:31→15:59)
[2024-01-23 06:55] LABS: Hematocrit 32.3 % (42.0-52.0); Mean Corpuscular HGB Conc 34.1 g/dl (31.0-36.0); Mean Corpuscular Hemoglobin 30.6 pg (27.0-33.0); Mean Corpuscular Volume 89.7 fL (80.0-98.0); Mean Platelet Volume 10.7 fL (9.4-12.4); Platelet Count 144 X10*3/uL (160-400); Red Cell Distribution Width 12.7 % (11.0-16.0); White Blood Count 10.9 X10*3/uL (4.8-10.8)
[2024-01-23 07:02] LABS: Glucose, Whole Blood 231 mg/dL (60-115)
[2024-01-23 07:44] LABS: Sodium 136 mmol/L (135-145)
[2024-01-23 07:45] LABS: Anion Gap 12 (12-20); Blood Urea Nitrogen 15 mg/dL (9-16); Calcium 7.7 mg/dL (8.4-10.2); Carbon Dioxide 23 mmol/L (22-29); Chloride 104 mmol/L (96-108); Creatinine Clr Calc Pharmacy 117.8; Estimated Glomerular Filt Rate > 60; Glucose Random 162 mg/dL (60-115)
[2024-01-23 07:47] LABS: Potassium 2.9 mmol/L (3.3-5.1)
[2024-01-23] MEDS: Potassium Chloride ER 20 MEQ TAB.ER.PRT 40 MEQ PO (08:55)
[2024-01-23] MEDS: Potassium Chloride/H20 10 MEQ/100 ML PIGGYBACK 100 MEQ IV ×3 (08:59→11:30)
[2024-01-23] MEDS: Acetaminophen 325 MG TABLET 975 MG PO (09:07)
[2024-01-23 09:20] LABS: Magnesium 1.6 mg/dL (1.6-2.6)
[2024-01-23] MEDS: Doxycycline Hyclate 100 MG in 0.9 % Sodium Chloride 250 ML 166.67 MG IV ×2 (09:44→20:25)
[2024-01-23] MEDS: Enalapril Maleate 10 MG TABLET PO (10:06)
[2024-01-23 10:21] LABS: Glucose, Whole Blood 148 mg/dL (60-115)
[2024-01-23] MEDS: Insulin Glargine,Hum.rec.anlog 100 UNIT/ML 10 ML VIAL 20 UNIT SUBCUT (10:42)
[2024-01-23] MEDS: Sodium Phosphate,Mono-Dibasic 133 ML ENEMA PR ×2 (10:44→11:06)
[2024-01-23 11:13] LABS: Glucose, Whole Blood 155 mg/dL (60-115)
[2024-01-23] MEDS: Dextrose 5 % and Lactated Ring 1,000 ML 80 ML IVCONT (11:19)
[2024-01-23] MEDS: cefTRIAXone sodium 1 GM in 0.9 % Sodium Chloride 50 ML IV (11:24)
[2024-01-23 11:36] LABS: Anion Gap 12 (12-20); Carbon Dioxide 22 mmol/L (22-29); Chloride 106 mmol/L (96-108); Sodium 136 mmol/L (135-145)
--- NOTE | 2024-01-23 11:39 | HO.PM.IMPN ---
Subjective Subjective Date of Service: 01/23/24 Interval History: f/u on abdominal pain, n/v fever, and finding of proctitis on CT sepsis resolved, no longer hypotensive, n/v resoled. No abdominal pain He is waiting for colonoscopy Physical Exam Vital Signs: Vital Signs: Last Vital Signs Temp 98.1 F 01/23/24 10:45 Pulse 91 01/23/24 10:45 Resp 20 01/23/24 10:45 BP 135/63 01/23/24 10:45 Pulse Ox 97 01/23/24 10:45 O2 Del Method Room Air 01/23/24 10:45 BMI result Body Mass Index 28.8 General: AO X 3, no acute distress Resp: CTA bilateral CVS: S1,S2,RRR GI: +BS, NT, no distention Skin: Neuro: motor grossly intact Psych: appropriate affect Objective Data Active Medications Acetaminophen (Acetaminophen 325 Mg Tablet) 975 mg PO Q6H PRN PRN Reason: Fever Last Admin: 01/23/24 09:07 Dose: 975 mg Documented By: CHA Atorvastatin Calcium (Atorvastatin Calcium 80 Mg Tablet) 80 mg PO BEDTIME [facility] Last Admin: 01/22/24 21:24 Dose: 80 mg Documented By: ANA MARIA Dextrose (Dextrose 50 % 25 Gm/50 Ml Syringe) 25 gm IVPUSH Q15M PRN; Protocol PRN Reason: per Hypoglycemia Standing Ord. Enalapril Maleate (Enalapril Maleate 10 Mg Tablet) 10 mg PO DAILY [facility]; Protocol Last Admin: 01/23/24 10:06 Dose: 10 mg Documented By: CHA Glucose (Glucose Gel 15 Gm Gel..Gram.) 15 gm PO Q15M PRN; Protocol PRN Reason: per Hypoglycemia Standing Ord. Hydromorphone HCl (Hydromorphone Hcl 1 Mg/Ml Syringe) 0.5 mg IVPUSH Q4H PRN; Protocol PRN Reason: Pain, Severe (Pain Scale 7-10) Doxycycline Hyclate 100 mg/ (Sodium Chloride) 250 mls @ 166.67 mls/hr IV Q12H [facility] Last Infusion: 01/23/24 11:15 Dose: Infused Documented By: CHA Ceftriaxone Sodium 1 gm/ (Sodium Chloride) 50 mls @ 100 mls/hr IV Q24H [facility] Last Admin: 01/23/24 11:24 Dose: 100 mls/hr Documented By: CHA Metronidazole (Flagyl) 500 mg in 100 mls @ 100 mls/hr IV BID [facility] Last Infusion: 01/23/24 02:10 Dose: Infused Documented By: JELLY Dextrose/Lactated Ringer's (D5lr) 1,000 mls @ 80 mls/hr IVCONT .[id number] [facility] Last Infusion: 01/23/24 11:32 Dose: 0 mls/hr Documented By: CHA Potassium Chloride (Potassium Chloride/H20) 10 meq in 100 mls @ 100 mls/hr IV ONCE ONE Stop: 01/23/24 12:12 Last Admin: 01/23/24 11:30 Dose: 100 mls/hr Documented By: CHA Insulin Glargine (Insulin Glargine,Hum.Rec.Anlog 100 Unit/Ml 10 Ml Vial) 10 unit SUBCUT BEDTIME [facility] Last Admin: 01/22/24 20:30 Dose: Not Given Documented By: ANA MARIA Non-Admin Reason: Physician Held Med Insulin Human Lispro (Insulin Lispro 100 Unit/Ml 3 Ml Vial) 0 unit SUBCUT QIDACHS [facility]; Protocol Last Admin: 01/23/24 08:54 Dose: Not Given Documented By: CHA Non-Admin Reason: No Insulin Coverage Ondansetron HCl (Ondansetron Hcl 4 Mg/2 Ml Vial) 4 mg IVPUSH Q8H PRN PRN Reason: Nausea and Vomiting Pantoprazole Sodium (Pantoprazole Sodium 40 Mg/10 Ml Vial) 40 mg IVPUSH BID@0630,1630 [facility] Last Admin: 01/23/24 05:31 Dose: 40 mg Documented By: JELLY Sodium Biphosphate/Sodium Phosphate (Sodium Phosphate,[place]-Dibasic 133 Ml Enema) 133 ml [place] ONCE PRN PRN Reason: Consult order Last Admin: 01/23/24 11:06 Dose: 133 ml Documented By: CHA Sodium Biphosphate/Sodium Phosphate (Sodium Phosphate,[place]-Dibasic 133 Ml Enema) 133 ml [place] ONCE PRN PRN Reason: Consult order Last Admin: 01/23/24 10:44 Dose: 133 ml Documented By: CHA Sodium Chloride (0.9 % Sodium Chloride Flush 3 Ml Syringe) 3 ml IVFLUSH QSHIFT [facility] Last Admin: 01/23/24 08:55 Dose: Not Given Documented By: CHA Non-Admin Reason: IV Running Labs 01/23/24 06:21 01/23/24 11:14 Labs: Laboratory Results - last 24 hr 01/22/24 01/22/24 01/22/24 13:38 18:24 20:28 MCV MCH MCHC RDW Plt Count MPV Absolute Nucleated RBC Nucleated RBC % (auto) Anion Gap Estim Creat Clear Calc Estimated GFR POC Glucose 148 H 271 H 231 H Random Glucose Calcium Magnesium 01/23/24 01/23/24 01/23/24 00:22 06:21 10:17 MCV 89.7 MCH 30.6 MCHC 34.1 RDW 12.7 Plt Count 144 L MPV 10.7 Absolute Nucleated RBC 0.000 Nucleated RBC % (auto) 0.0 Anion Gap 12 Estim Creat Clear Calc 117.8 Estimated GFR > 60 POC Glucose 155 H 148 H Random Glucose 162 H Calcium 7.7 L Magnesium 1.6 01/23/24 01/23/24 11:05 11:14 MCV MCH MCHC RDW Plt Count MPV Absolute Nucleated RBC Nucleated RBC % (auto) Anion Gap 12 Estim Creat Clear Calc Estimated GFR POC Glucose 155 H Random Glucose Calcium Magnesium Microbiology Microbiology Results: Microbiology 01/22/24 05:31 Urine Culture - Preliminary Urine Catheterized - Straight Catheter No growth to date. 01/21/24 21:42 Blood Culture - Preliminary Blood - Venous No growth after 24 hours. 01/21/24 21:27 Blood Culture - Preliminary Blood - Venous No growth after 24 hours. Assessment and Plan (1) UTI (urinary tract infection): Status: Acute (2) Proctitis: Status: Acute (3) Vomiting: Status: Acute (4) T2DM (type 2 diabetes mellitus): Status: Acute (5) HTN (hypertension): Status: Acute (6) HLD (hyperlipidemia): Status: Acute Plan Giuseppe Allen is a 58 years old man admitted with: Pelvic abdominal pain, nausea, vomiting and fever (no diarrhea) secondary to urinary tract infection and proctitis causing severe sepsis. He is feeling better and sepsis resolved. -IVF -IVAbx with Ceftriaxone, Doxy and Flagyl -culture negative thus far -WBC now normal -NPO for colonoscopy today Occult blood in stool likely secondary to proctitis. No ellie bright red blood bleeding per rectum reported by patient. Hold aspirin. and colonoscopy as above Hypertension. Enalapril was on hold due hypotension, BP is high now and will restart Hyperlipidemia. Continue atorvastatin. Type 2 diabetes mellitus. Takes Jardiance and Lantus 80 at bedtime, give 20 of lantus this am, while NPO, IVF with sugar and closely monitor sugars . Hypokalemia--IV and oral replacement and recheck level, mag is normal at 1.6 History of stroke. Continue statin, ASA after colonoscoy GERD. Continue PPI. DVT Prophylaxis:--device use d/t reproted blood in stool need for inpatient: Sepsis treatment with IV Abx, IVF for Hypotension and close monitoring for organ dysfunction Quality Stroke Does the patient have a stroke diagnosis?: No VTE Prior VTE?: No VTE Risk Level:: Medical - moderate - high VTE Device Contraindication: Treatment Not Indicated VTE Drug Contraindication: N/A - Med Ordered
[2024-01-23 11:42] LABS: Potassium 3.7 mmol/L (3.3-5.1)
--- NOTE | 2024-01-23 12:42 | MHC.CM.PN ---
Pt has not been medically cleared for DC, he is scheduled to have a colonoscopy today. DC plan is home, self care, CM will follow and assist with DC plan.
--- NOTE | 2024-01-23 13:12 | P.PNGI_ITS ---
Subjective Subjective Date of Service: 01/23/24 Interval History: doing better no abdominal pain no fevers or chills no rectal bleeding Critical Care Time (minutes): 0 Physical Exam 2 Vital Signs: Vital Signs: Last Vital Signs Temp 98.1 F 01/23/24 10:45 Pulse 91 01/23/24 10:45 Resp 20 01/23/24 10:45 BP 135/63 01/23/24 10:45 Pulse Ox 97 01/23/24 10:45 O2 Del Method Room Air 01/23/24 10:45 BMI result Body Mass Index 28.8 EXAM: GENERAL: The patient is well developed and nontoxic. VITAL SIGNS:see workflow HEENT: Nonicteric sclerae, PERRLA, EOMI. Oropharynx clear. Moist mucous membranes. Conjunctivae appear well perfused. No thyroid mass. CHEST: Chest wall is nontender. HEART: Regular rate and rhythm without murmurs. LUNGS: Clear to auscultation bilaterally. ABDOMEN: Soft, positive bowel sounds, nontender, no organomegaly.no flank tenderness SKIN: No rash, no excessive bruising, petechiae, or purpura. NEUROLOGIC: Cranial nerves II-XII intact without motor/sensory deficit. Psych: normal affect Objective Data Labs 01/23/24 06:21 01/23/24 11:14 Labs: Laboratory Results - last 24 hr 01/22/24 01/22/24 01/22/24 13:38 18:24 20:28 WBC RBC Hgb Hct MCV MCH MCHC RDW Plt Count MPV Absolute Nucleated RBC Nucleated RBC % (auto) Sodium Potassium Chloride Carbon Dioxide Anion Gap BUN Creatinine Estim Creat Clear Calc Estimated GFR POC Glucose 148 H 271 H 231 H Random Glucose Calcium Magnesium 01/23/24 01/23/24 01/23/24 00:22 06:21 10:17 WBC 10.9 H RBC 3.60 L Hgb 11.0 L Hct 32.3 L MCV 89.7 MCH 30.6 MCHC 34.1 RDW 12.7 Plt Count 144 L MPV 10.7 Absolute Nucleated RBC 0.000 Nucleated RBC % (auto) 0.0 Sodium 136 Potassium 2.9 L* D Chloride 104 Carbon Dioxide 23 Anion Gap 12 BUN 15 Creatinine 0.72 Estim Creat Clear Calc 117.8 Estimated GFR > 60 POC Glucose 155 H 148 H Random Glucose 162 H Calcium 7.7 L Magnesium 1.6 01/23/24 01/23/24 11:05 11:14 WBC RBC Hgb Hct MCV MCH MCHC RDW Plt Count MPV Absolute Nucleated RBC Nucleated RBC % (auto) Sodium 136 Potassium 3.7 D Chloride 106 Carbon Dioxide 22 Anion Gap 12 BUN Creatinine Estim Creat Clear Calc Estimated GFR POC Glucose 155 H Random Glucose Calcium Magnesium Microbiology Microbiology Results: Microbiology 01/22/24 05:31 Urine Catheterized - Straight Catheter Urine Culture - Preliminary No growth to date. 01/21/24 21:42 Blood - Venous Blood Culture - Preliminary No growth after 24 hours. 01/21/24 21:27 Blood - Venous Blood Culture - Preliminary No growth after 24 hours. Procedures Date of Service Date of Service: 01/23/24 Progress Note: A&P Assessment and plan (1) Proctitis: Status: Acute Plan 1/ Fever and chills, Ct with rectal thickening, pos UA ?infectious proctitis or UTI PLAN: 1/ colonoscopy today for further assessment, await Urine culture Time Spent With Patient Time: Total time managing care of this patient today ____ minutes. Quality Stroke Does the patient have a stroke diagnosis?: No VTE Prior VTE?: No VTE Risk Level:: Medical - moderate - high VTE Device Contraindication: Treatment Not Indicated VTE Drug Contraindication: N/A - Med Ordered
--- NOTE | 2024-01-23 13:12 | MHC.SHP ---
Pre-Procedural Eval Section A - 24 Hr Update-Section A only Date of Service: 01/23/24 The patient is an INPATIENT: Yes The patient has been examined within 24 hours of the surgical procedure. The History & Physical has been completed within 30 days and I have reviewed it.: Yes Section B - Complete if H&P > 30 days Chief Complaint: Sepsis Allergies: Allergies Allergy/AdvReac Type Severity Reaction Status Date / Time SEASONAL ALLERGIES Allergy Mild RUNNY NOSE Uncoded 09/10/23 08:34 Plan I have reviewed the history and physical and performed a pertinent physical examination on my patient. No changes have occurred unless specified. Time Spent With Patient Time: Total time managing care of this patient today ____ minutes.
--- NOTE | 2024-01-23 13:40 | PC.NURSE ---
Patient arrived to preop with two PRN angios. #20 right forearm and #20 left forearm. Both sites clean dry and intact, flushed with normal saline flush with no issues, tolerated well, sites asymptomatic.
--- NOTE | 2024-01-23 13:41 | HO.WOUND ---
Wound Consult: Initial 58yr old? Male admitted to [facility] [place] on 01/22/24 - See progress notes and H&P for detailed history.? Wound consult placed for Right Buttock.? Patient agreeable to assessment and photo documentation.? Buttock assessed evidence of previous MASD noted with hyperpigmented mirrored tissue - remains intact and does not appear currently inflamed. There are scattered areas of resolving excoriation and abrasions. The patient reports he often shaves is buttock area and on occasion causes abrasions as observed. See photo for review. When assessing patient bottom left calf was observed for redness, maroon pigmentation noted with out previous documentation. The patient denies pain, tenderness, there is no swelling, no warmth, no induration and no fluctuance noted. The patient reports this area is new and he does not recall previous color changes to this area. He does recall the dry scabbed wound to his achilles area which he reports is nonhealing due to his diabetes. He reports he has had for sometime and has not sought treatment for the area. Sacrum and Buttock Etiology: ?Abrasions and Excoriation ? Measurements: various sizes noted in various stages of healing Goals of Treatment: ? Barrier cream to protect from moisture and frequent loose stools secondary to bowel prep Left Achilles Etiology: ?Diabetic wound ?Present on Admission Measurements: 1cm x 1cm x 0.2cm Wound Bed: dry black scabbed area adherent in place Drainage / Odor: None Edges: ? Irregular and attached Estela wound: Dry and pink erythema - ? No Induration, Fluctuance or Warmth noted Pain: denies Goals of Treatment: ? Hydrocolloid for moist wound healing Left Posterior calf Etiology: ?Unknown - not consistent with pressure or moisture Wound Bed: Intact Maroon red pigmentation Drainage / Odor: None Edges: ? irregular Estela wound: Intact No Induration, Fluctuance or Warmth noted Pain: denies Goals of Treatment: ? No topical interventions needed at this time. Recommendations: 1. Turn and Reposition every 2 hours and as needed for patient comfort.? Use pillows or wedges to support off loading positions. 2. Off Load all bony prominences with use of pillows and heel boots if needed.? Apply Preventative foams where needed. ? 3. Monitor for incontinence and moisture control, use barrier creams when needed for prevention and treatment. 4. Provide adequate and supplemental nutrition when needed.? 5. Maintain blood glucose levels per Providers order. 6. Left Heel - Cleanse with NS moist gauze dry well. Apply skin prep to periwound allow to dry. Cover with Hydrocolloid, change every 2-3 days. 7. Buttocks - Routine cleansing with PH balanced wash, pat dry. Apply thin layer of barrier cream to buttock and perianal area. Apply twice daily and PRN. Re-consult wound care Nurse for wound deterioration or wound changes.
[2024-01-23 13:50] LABS: Glucose, Whole Blood 138 mg/dL (60-115)
--- NOTE | 2024-01-23 14:07 | P.CONAN_ITS ---
[facility] Active Problems Active Problems: All Active Problems (Updated 01/22/24 @ 05:21 by Jole Patten MD) UTI (urinary tract infection) (Acute) Proctitis (Acute) Vomiting (Acute) Sepsis (Acute) Stroke (Acute) HLD (hyperlipidemia) (Acute) HTN (hypertension) (Acute) T2DM (type 2 diabetes mellitus) (Acute) Gastritis (Acute) GERD (gastroesophageal reflux disease) (Acute) Past Medical History Medical History HLD (hyperlipidemia) HTN (hypertension) T2DM (type 2 diabetes mellitus) Family History Family History Father Diabetes Mother Diabetes Paternal Grandfather Diabetes Family history of problems with anesthesia: No Surgical History Surgical History Hx of colonoscopy (08/13/18) Hx of circumcision History of Problems with Anesthesia: No Social History Social History Household Members: Spouse Household Members Other:: John Johansen Housing: House Do you presently have visiting nurse or other home services: No Alcohol intake: never Patient Tobacco Use Status: Never used Tobacco service: No Meds Allergies Allergy/AdvReac Type Severity Reaction Status Date / Time SEASONAL ALLERGIES Allergy Mild RUNNY NOSE Uncoded 01/23/24 13:42 Active Medications: Current Medications Acetaminophen (Acetaminophen 325 Mg Tablet) 975 mg PO Q6H PRN PRN Reason: Fever Last Admin: 01/23/24 09:07 Dose: 975 mg Atorvastatin Calcium (Atorvastatin Calcium 80 Mg Tablet) 80 mg PO BEDTIME SCOTT Last Admin: 01/22/24 21:24 Dose: 80 mg Dextrose (Dextrose 50 % 25 Gm/50 Ml Syringe) 25 gm IVPUSH Q15M PRN; Protocol PRN Reason: per Hypoglycemia Standing Ord. Enalapril Maleate (Enalapril Maleate 10 Mg Tablet) 10 mg PO DAILY SCOTT; Protocol Last Admin: 01/23/24 10:06 Dose: 10 mg Glucose (Glucose Gel 15 Gm Gel..Gram.) 15 gm PO Q15M PRN; Protocol PRN Reason: per Hypoglycemia Standing Ord. Hydromorphone HCl (Hydromorphone Hcl 1 Mg/Ml Syringe) 0.5 mg IVPUSH Q4H PRN; Protocol PRN Reason: Pain, Severe (Pain Scale 7-10) Doxycycline Hyclate 100 mg/ (Sodium Chloride) 250 mls @ 166.67 mls/hr IV Q12H [facility] Last Infusion: 01/23/24 11:15 Dose: Infused Ceftriaxone Sodium 1 gm/ (Sodium Chloride) 50 mls @ 100 mls/hr IV Q24H [facility] Last Infusion: 01/23/24 11:54 Dose: Infused Metronidazole (Flagyl) 500 mg in 100 mls @ 100 mls/hr IV BID [facility] Last Infusion: 01/23/24 12:55 Dose: Infused Dextrose/Lactated Ringer's (D5lr) 1,000 mls @ 80 mls/hr IVCONT .[id number] [facility] Last Infusion: 01/23/24 13:26 Dose: 0 mls/hr Insulin Glargine (Insulin Glargine,Hum.Rec.Anlog 100 Unit/Ml 10 Ml Vial) 10 unit SUBCUT BEDTIME [facility] Last Admin: 01/22/24 20:30 Dose: Not Given Insulin Human Lispro (Insulin Lispro 100 Unit/Ml 3 Ml Vial) 0 unit SUBCUT QIDACHS [facility]; Protocol Last Admin: 01/23/24 11:39 Dose: Not Given Ondansetron HCl (Ondansetron Hcl 4 Mg/2 Ml Vial) 4 mg IVPUSH Q8H PRN PRN Reason: Nausea and Vomiting Pantoprazole Sodium (Pantoprazole Sodium 40 Mg/10 Ml Vial) 40 mg IVPUSH BID@0630,1630 [facility] Last Admin: 01/23/24 05:31 Dose: 40 mg Sodium Biphosphate/Sodium Phosphate (Sodium Phosphate,Will-Dibasic 133 Ml Enema) 133 ml [place] ONCE PRN PRN Reason: Consult order Last Admin: 01/23/24 11:06 Dose: 133 ml Sodium Biphosphate/Sodium Phosphate (Sodium Phosphate,Will-Dibasic 133 Ml Enema) 133 ml [place] ONCE PRN PRN Reason: Consult order Last Admin: 01/23/24 10:44 Dose: 133 ml Sodium Chloride (0.9 % Sodium Chloride Flush 3 Ml Syringe) 3 ml IVFLUSH QSHIFT [facility] Last Admin: 01/23/24 08:55 Dose: Not Given Home Medications Medication Instructions Recorded Confirmed Last Taken Type insulin glargine 100 unit/mL (3 80 unit subcut BEDTIME 12/27/21 01/22/24 01/20/24 History mL) subcutaneous pen (Lantus Solostar U-100 Insulin) enalapril maleate 10 mg tablet 10 mg PO DAILY 09/10/23 01/22/24 01/20/24 History multivitamin 1 tab PO DAILY 09/10/23 01/22/24 01/20/24 History empagliflozin 10 mg tablet 10 mg PO DAILY 01/22/24 01/22/24 01/20/24 History (Jardiance) Exam Height,Weight and Vital Signs: Height 5 ft 8 in Weight 86 kg Last Vital Signs Temp 98.0 F 01/23/24 13:33 Pulse 82 01/23/24 13:33 Resp 16 01/23/24 13:33 BP 132/74 01/23/24 13:33 Pulse Ox 98 01/23/24 13:33 O2 Del Method Room Air 01/23/24 13:33 Pertinent Lab Results Pertinent Lab Results: Laboratory Tests 01/21/24 01/21/24 01/21/24 18:29 21:27 21:42 WBC 23.4 H RBC 4.76 Hgb 14.4 Hct 40.9 L MCV 85.9 MCH 30.3 MCHC 35.2 RDW 12.5 Plt Count 202 MPV 10.3 Immature Gran % (Auto) 0.6 H Neut % (Auto) 87.9 H Lymph % (Auto) 4.7 L Will % (Auto) 6.6 Eos % (Auto) 0.0 Baso % (Auto) 0.2 Lymph # (Auto) 1.1 L Will # (Auto) 1.6 H Eos # (Auto) 0.0 Baso # (Auto) 0.0 Abs Immat Gran (auto) 0.15 H Absolute Neuts (auto) 20.5 H Absolute Nucleated RBC 0.000 Nucleated RBC % (auto) 0.0 Smear Tech's Comments VERIFIED PT 14.3 H D INR 1.2 H Sodium 137 Potassium 3.3 Chloride 103 Carbon Dioxide 23 Anion Gap 14 BUN 21 H Creatinine 0.89 Estim Creat Clear Calc 86.4 Estimated GFR > 60 POC Glucose Random Glucose 153 H Lactic Acid 1.0 Calcium 9.1 Magnesium Total Bilirubin 0.6 AST 18 ALT 35 Alkaline Phosphatase 130 H Troponin I High Sens < 2.7 C-Reactive Protein 1.75 H Total Protein 7.2 Albumin 3.8 Urine Color Urine Appearance Urine pH Ur Specific [place] Urine Protein Urine Glucose (UA) Urine Ketones Urine Blood Urine Nitrite Ur Leukocyte Esterase Urine RBC Urine WBC Ur Squamous Epith Cells Urine Bacteria Hyaline Casts Stool Occult Blood T.pallidum Ab (EIA) Influenza Type A (PCR) NEGATIVE Influenza Type B (PCR) NEGATIVE RSV RNA Qual (PCR) NEGATIVE SARS-CoV-2 RNA (RT-PCR) NEGATIVE Blood Type O Positive Antibody Screen NEGATIVE 01/22/24 01/22/24 01/22/24 00:56 01:48 04:50 WBC 16.5 H RBC 3.83 L Hgb 11.7 L Hct 34.2 L MCV 89.3 MCH 30.5 MCHC 34.2 RDW 13.0 Plt Count 160 MPV 11.2 Immature Gran % (Auto) 0.5 H Neut % (Auto) 86.9 H Lymph % (Auto) 6.6 L Will % (Auto) 5.7 Eos % (Auto) 0.1 Baso % (Auto) 0.2 Lymph # (Auto) 1.1 L Will # (Auto) 0.9 Eos # (Auto) 0.0 Baso # (Auto) 0.0 Abs Immat Gran (auto) 0.09 H Absolute Neuts (auto) 14.3 H Absolute Nucleated RBC 0.000 Nucleated RBC % (auto) 0.0 Smear Tech's Comments PT INR Sodium Potassium Chloride Carbon Dioxide Anion Gap BUN Creatinine Estim Creat Clear Calc Estimated GFR POC Glucose Random Glucose Lactic Acid Calcium Magnesium Total Bilirubin AST ALT Alkaline Phosphatase Troponin I High Sens C-Reactive Protein Total Protein Albumin Urine Color Dark Yellow Urine Appearance Cloudy Urine pH 5.5 Ur Specific [place] >= 1.030 H Urine Protein 300 (3+) H Urine Glucose (UA) >=1000 H Urine Ketones Trace Urine Blood Large (3+) H Urine Nitrite Negative Ur Leukocyte Esterase Trace H Urine RBC >20 H Urine WBC 11-20 H Ur Squamous Epith Cells 0-2 Urine Bacteria None Seen Hyaline Casts 0-2 Stool Occult Blood POSITIVE T.pallidum Ab (EIA) Influenza Type A (PCR) Influenza Type B (PCR) RSV RNA Qual (PCR) SARS-CoV-2 RNA (RT-PCR) Blood Type Antibody Screen 01/22/24 01/22/24 01/22/24 05:31 05:40 08:32 WBC RBC Hgb Hct MCV MCH MCHC RDW Plt Count MPV Immature Gran % (Auto) Neut % (Auto) Lymph % (Auto) Will % (Auto) Eos % (Auto) Baso % (Auto) Lymph # (Auto) Will # (Auto) Eos # (Auto) Baso # (Auto) Abs Immat Gran (auto) Absolute Neuts (auto) Absolute Nucleated RBC Nucleated RBC % (auto) Smear Tech's Comments PT INR Sodium 137 Potassium 3.9 Chloride 106 Carbon Dioxide 21 L Anion Gap 14 BUN 25 H Creatinine 0.98 Estim Creat Clear Calc 78.5 Estimated GFR > 60 POC Glucose 177 H 186 H Random Glucose 191 H Lactic Acid Calcium 7.7 L D Magnesium 1.5 L Total Bilirubin 0.9 AST 20 ALT 33 Alkaline Phosphatase 84 Troponin I High Sens C-Reactive Protein Total Protein 5.9 L Albumin 3.6 Urine Color Urine Appearance Urine pH Ur Specific [place] Urine Protein Urine Glucose (UA) Urine Ketones Urine Blood Urine Nitrite Ur Leukocyte Esterase Urine RBC Urine WBC Ur Squamous Epith Cells Urine Bacteria Hyaline Casts Stool Occult Blood T.pallidum Ab (EIA) Nonreactive Influenza Type A (PCR) Influenza Type B (PCR) RSV RNA Qual (PCR) SARS-CoV-2 RNA (RT-PCR) Blood Type Antibody Screen 01/22/24 01/22/24 01/22/24 13:38 18:24 20:28 WBC RBC Hgb Hct MCV MCH MCHC RDW Plt Count MPV Immature Gran % (Auto) Neut % (Auto) Lymph % (Auto) Will % (Auto) Eos % (Auto) Baso % (Auto) Lymph # (Auto) Will # (Auto) Eos # (Auto) Baso # (Auto) Abs Immat Gran (auto) Absolute Neuts (auto) Absolute Nucleated RBC Nucleated RBC % (auto) Smear Tech's Comments PT INR Sodium Potassium Chloride Carbon Dioxide Anion Gap BUN Creatinine Estim Creat Clear Calc Estimated GFR POC Glucose 148 H 271 H 231 H Random Glucose Lactic Acid Calcium Magnesium Total Bilirubin AST ALT Alkaline Phosphatase Troponin I High Sens C-Reactive Protein Total Protein Albumin Urine Color Urine Appearance Urine pH Ur Specific [place] Urine Protein Urine Glucose (UA) Urine Ketones Urine Blood Urine Nitrite Ur Leukocyte Esterase Urine RBC Urine WBC Ur Squamous Epith Cells Urine Bacteria Hyaline Casts Stool Occult Blood T.pallidum Ab (EIA) Influenza Type A (PCR) Influenza Type B (PCR) RSV RNA Qual (PCR) SARS-CoV-2 RNA (RT-PCR) Blood Type Antibody Screen 01/23/24 01/23/24 01/23/24 00:22 06:21 10:17 WBC 10.9 H RBC 3.60 L Hgb 11.0 L Hct 32.3 L MCV 89.7 MCH 30.6 MCHC 34.1 RDW 12.7 Plt Count 144 L MPV 10.7 Immature Gran % (Auto) Neut % (Auto) Lymph % (Auto) Will % (Auto) Eos % (Auto) Baso % (Auto) Lymph # (Auto) Will # (Auto) Eos # (Auto) Baso # (Auto) Abs Immat Gran (auto) Absolute Neuts (auto) Absolute Nucleated RBC 0.000 Nucleated RBC % (auto) 0.0 Smear Tech's Comments PT INR Sodium 136 Potassium 2.9 L* D Chloride 104 Carbon Dioxide 23 Anion Gap 12 BUN 15 Creatinine 0.72 Estim Creat Clear Calc 117.8 Estimated GFR > 60 POC Glucose 155 H 148 H Random Glucose 162 H Lactic Acid Calcium 7.7 L Magnesium 1.6 Total Bilirubin AST ALT Alkaline Phosphatase Troponin I High Sens C-Reactive Protein Total Protein Albumin Urine Color Urine Appearance Urine pH Ur Specific [place] Urine Protein Urine Glucose (UA) Urine Ketones Urine Blood Urine Nitrite Ur Leukocyte Esterase Urine RBC Urine WBC Ur Squamous Epith Cells Urine Bacteria Hyaline Casts Stool Occult Blood T.pallidum Ab (EIA) Influenza Type A (PCR) Influenza Type B (PCR) RSV RNA Qual (PCR) SARS-CoV-2 RNA (RT-PCR) Blood Type Antibody Screen 01/23/24 01/23/24 01/23/24 11:05 11:14 13:46 WBC RBC Hgb Hct MCV MCH MCHC RDW Plt Count MPV Immature Gran % (Auto) Neut % (Auto) Lymph % (Auto) Will % (Auto) Eos % (Auto) Baso % (Auto) Lymph # (Auto) Will # (Auto) Eos # (Auto) Baso # (Auto) Abs Immat Gran (auto) Absolute Neuts (auto) Absolute Nucleated RBC Nucleated RBC % (auto) Smear Tech's Comments PT INR Sodium 136 Potassium 3.7 D Chloride 106 Carbon Dioxide 22 Anion Gap 12 BUN Creatinine Estim Creat Clear Calc Estimated GFR POC Glucose 155 H 138 H Random Glucose Lactic Acid Calcium Magnesium Total Bilirubin AST ALT Alkaline Phosphatase Troponin I High Sens C-Reactive Protein Total Protein Albumin Urine Color Urine Appearance Urine pH Ur Specific [place] Urine Protein Urine Glucose (UA) Urine Ketones Urine Blood Urine Nitrite Ur Leukocyte Esterase Urine RBC Urine WBC Ur Squamous Epith Cells Urine Bacteria Hyaline Casts Stool Occult Blood T.pallidum Ab (EIA) Influenza Type A (PCR) Influenza Type B (PCR) RSV RNA Qual (PCR) SARS-CoV-2 RNA (RT-PCR) Blood Type Antibody Screen Assessment and Plan Assessment Anesthesia Assessment: Anesthesia Plan Discussed Final Anesthetic Review Family History of Problems with Anesthesia: No History of Problems with Anesthesia: No NPO: Yes ASA Class: III Final Preanesthetic Review: Meds/Allgs Chart Reviewed, Consent Obtained/Reviewed and Anes Risks/Benef Reviewed Patient Risk: Intermediate Procedure Risk: Low Anesthetic Plan Anesthetic Plan: MAC: Disposition: Standard PACU
--- NOTE | 2024-01-23 14:17 | HO.ANESPROP2 ---
[facility], [facility] Active Problems Active Problems: All Active Problems UTI (urinary tract infection) (Acute) Proctitis (Acute) Vomiting (Acute) Sepsis (Acute) Stroke (Acute) HLD (hyperlipidemia) (Acute) HTN (hypertension) (Acute) T2DM (type 2 diabetes mellitus) (Acute) Gastritis (Acute) GERD (gastroesophageal reflux disease) (Acute) Past Medical History Medical History HLD (hyperlipidemia) HTN (hypertension) T2DM (type 2 diabetes mellitus) Family History Family History Father Diabetes Mother Diabetes Paternal Grandfather Diabetes Family history of problems with anesthesia: No Surgical History Surgical History Hx of colonoscopy (08/13/18) Hx of circumcision History of Problems with Anesthesia: No Social History Social History Household Members: Spouse Household Members Other:: John Johansen Housing: House Do you presently have visiting nurse or other home services: No Alcohol intake: never Patient Tobacco Use Status: Never used Tobacco service: No Meds Allergies Allergy/AdvReac Type Severity Reaction Status Date / Time SEASONAL ALLERGIES Allergy Mild RUNNY NOSE Uncoded 01/23/24 13:42 Active Medications: Current Medications Acetaminophen (Acetaminophen 325 Mg Tablet) 975 mg PO Q6H PRN PRN Reason: Fever Last Admin: 01/23/24 09:07 Dose: 975 mg Atorvastatin Calcium (Atorvastatin Calcium 80 Mg Tablet) 80 mg PO BEDTIME SCOTT Last Admin: 01/22/24 21:24 Dose: 80 mg Dextrose (Dextrose 50 % 25 Gm/50 Ml Syringe) 25 gm IVPUSH Q15M PRN; Protocol PRN Reason: per Hypoglycemia Standing Ord. Enalapril Maleate (Enalapril Maleate 10 Mg Tablet) 10 mg PO DAILY SCOTT; Protocol Last Admin: 01/23/24 10:06 Dose: 10 mg Glucose (Glucose Gel 15 Gm Gel..Gram.) 15 gm PO Q15M PRN; Protocol PRN Reason: per Hypoglycemia Standing Ord. Hydromorphone HCl (Hydromorphone Hcl 1 Mg/Ml Syringe) 0.5 mg IVPUSH Q4H PRN; Protocol PRN Reason: Pain, Severe (Pain Scale 7-10) Doxycycline Hyclate 100 mg/ (Sodium Chloride) 250 mls @ 166.67 mls/hr IV Q12H [facility] Last Infusion: 01/23/24 11:15 Dose: Infused Ceftriaxone Sodium 1 gm/ (Sodium Chloride) 50 mls @ 100 mls/hr IV Q24H [facility] Last Infusion: 01/23/24 11:54 Dose: Infused Metronidazole (Flagyl) 500 mg in 100 mls @ 100 mls/hr IV BID [facility] Last Infusion: 01/23/24 12:55 Dose: Infused Dextrose/Lactated Ringer's (D5lr) 1,000 mls @ 80 mls/hr IVCONT .[id number] [facility] Last Infusion: 01/23/24 13:26 Dose: 0 mls/hr Insulin Glargine (Insulin Glargine,Hum.Rec.Anlog 100 Unit/Ml 10 Ml Vial) 10 unit SUBCUT BEDTIME [facility] Last Admin: 01/22/24 20:30 Dose: Not Given Insulin Human Lispro (Insulin Lispro 100 Unit/Ml 3 Ml Vial) 0 unit SUBCUT QIDACHS [facility]; Protocol Last Admin: 01/23/24 11:39 Dose: Not Given Ondansetron HCl (Ondansetron Hcl 4 Mg/2 Ml Vial) 4 mg IVPUSH Q8H PRN PRN Reason: Nausea and Vomiting Pantoprazole Sodium (Pantoprazole Sodium 40 Mg/10 Ml Vial) 40 mg IVPUSH BID@0630,1630 [facility] Last Admin: 01/23/24 05:31 Dose: 40 mg Sodium Biphosphate/Sodium Phosphate (Sodium Phosphate,[place]-Dibasic 133 Ml Enema) 133 ml [place] ONCE PRN PRN Reason: Consult order Last Admin: 01/23/24 11:06 Dose: 133 ml Sodium Biphosphate/Sodium Phosphate (Sodium Phosphate,Garrett-Dibasic 133 Ml Enema) 133 ml SD ONCE PRN PRN Reason: Consult order Last Admin: 01/23/24 10:44 Dose: 133 ml Sodium Chloride (0.9 % Sodium Chloride Flush 3 Ml Syringe) 3 ml IVFLUSH QSHIFT [facility] Last Admin: 01/23/24 08:55 Dose: Not Given Home Medications Medication Instructions Recorded Confirmed Last Taken Type insulin glargine 100 unit/mL (3 80 unit subcut BEDTIME 12/27/21 01/22/24 01/20/24 History mL) subcutaneous pen (Lantus Solostar U-100 Insulin) enalapril maleate 10 mg tablet 10 mg PO DAILY 09/10/23 01/22/24 01/20/24 History multivitamin 1 tab PO DAILY 09/10/23 01/22/24 01/20/24 History empagliflozin 10 mg tablet 10 mg PO DAILY 01/22/24 01/22/24 01/20/24 History (Jardiance) Exam Height,Weight and Vital Signs: Height 5 ft 8 in Weight 86 kg Last Vital Signs Temp 98.0 F 01/23/24 13:33 Pulse 82 01/23/24 13:33 Resp 16 01/23/24 13:33 BP 132/74 01/23/24 13:33 Pulse Ox 98 01/23/24 13:33 O2 Del Method Room Air 01/23/24 13:33 Pertinent Lab Results Pertinent Lab Results: Laboratory Tests 01/21/24 01/21/24 01/21/24 18:29 21:27 21:42 WBC 23.4 H RBC 4.76 Hgb 14.4 Hct 40.9 L MCV 85.9 MCH 30.3 MCHC 35.2 RDW 12.5 Plt Count 202 MPV 10.3 Immature Gran % (Auto) 0.6 H Neut % (Auto) 87.9 H Lymph % (Auto) 4.7 L [place] % (Auto) 6.6 Eos % (Auto) 0.0 Baso % (Auto) 0.2 Lymph # (Auto) 1.1 L Garrett # (Auto) 1.6 H Eos # (Auto) 0.0 Baso # (Auto) 0.0 Abs Immat Gran (auto) 0.15 H Absolute Neuts (auto) 20.5 H Absolute Nucleated RBC 0.000 Nucleated RBC % (auto) 0.0 Smear Tech's Comments VERIFIED PT 14.3 H D INR 1.2 H Sodium 137 Potassium 3.3 Chloride 103 Carbon Dioxide 23 Anion Gap 14 BUN 21 H Creatinine 0.89 Estim Creat Clear Calc 86.4 Estimated GFR > 60 POC Glucose Random Glucose 153 H Lactic Acid 1.0 Calcium 9.1 Magnesium Total Bilirubin 0.6 AST 18 ALT 35 Alkaline Phosphatase 130 H Troponin I High Sens < 2.7 C-Reactive Protein 1.75 H Total Protein 7.2 Albumin 3.8 Urine Color Urine Appearance Urine pH Ur Specific [place] Urine Protein Urine Glucose (UA) Urine Ketones Urine Blood Urine Nitrite Ur Leukocyte Esterase Urine RBC Urine WBC Ur Squamous Epith Cells Urine Bacteria Hyaline Casts Stool Occult Blood T.pallidum Ab (EIA) Influenza Type A (PCR) NEGATIVE Influenza Type B (PCR) NEGATIVE RSV RNA Qual (PCR) NEGATIVE SARS-CoV-2 RNA (RT-PCR) NEGATIVE Blood Type O Positive Antibody Screen NEGATIVE 01/22/24 01/22/24 01/22/24 00:56 01:48 04:50 WBC 16.5 H RBC 3.83 L Hgb 11.7 L Hct 34.2 L MCV 89.3 MCH 30.5 MCHC 34.2 RDW 13.0 Plt Count 160 MPV 11.2 Immature Gran % (Auto) 0.5 H Neut % (Auto) 86.9 H Lymph % (Auto) 6.6 L [place] % (Auto) 5.7 Eos % (Auto) 0.1 Baso % (Auto) 0.2 Lymph # (Auto) 1.1 L [place] # (Auto) 0.9 Eos # (Auto) 0.0 Baso # (Auto) 0.0 Abs Immat Gran (auto) 0.09 H Absolute Neuts (auto) 14.3 H Absolute Nucleated RBC 0.000 Nucleated RBC % (auto) 0.0 Smear Tech's Comments PT INR Sodium Potassium Chloride Carbon Dioxide Anion Gap BUN Creatinine Estim Creat Clear Calc Estimated GFR POC Glucose Random Glucose Lactic Acid Calcium Magnesium Total Bilirubin AST ALT Alkaline Phosphatase Troponin I High Sens C-Reactive Protein Total Protein Albumin Urine Color Dark Yellow Urine Appearance Cloudy Urine pH 5.5 Ur Specific [place] >= 1.030 H Urine Protein 300 (3+) H Urine Glucose (UA) >=1000 H Urine Ketones Trace Urine Blood Large (3+) H Urine Nitrite Negative Ur Leukocyte Esterase Trace H Urine RBC >20 H Urine WBC 11-20 H Ur Squamous Epith Cells 0-2 Urine Bacteria None Seen Hyaline Casts 0-2 Stool Occult Blood POSITIVE T.pallidum Ab (EIA) Influenza Type A (PCR) Influenza Type B (PCR) RSV RNA Qual (PCR) SARS-CoV-2 RNA (RT-PCR) Blood Type Antibody Screen 01/22/24 01/22/24 01/22/24 05:31 05:40 08:32 WBC RBC Hgb Hct MCV MCH MCHC RDW Plt Count MPV Immature Gran % (Auto) Neut % (Auto) Lymph % (Auto) [place] % (Auto) Eos % (Auto) Baso % (Auto) Lymph # (Auto) Garrett # (Auto) Eos # (Auto) Baso # (Auto) Abs Immat Gran (auto) Absolute Neuts (auto) Absolute Nucleated RBC Nucleated RBC % (auto) Smear Tech's Comments PT INR Sodium 137 Potassium 3.9 Chloride 106 Carbon Dioxide 21 L Anion Gap 14 BUN 25 H Creatinine 0.98 Estim Creat Clear Calc 78.5 Estimated GFR > 60 POC Glucose 177 H 186 H Random Glucose 191 H Lactic Acid Calcium 7.7 L D Magnesium 1.5 L Total Bilirubin 0.9 AST 20 ALT 33 Alkaline Phosphatase 84 Troponin I High Sens C-Reactive Protein Total Protein 5.9 L Albumin 3.6 Urine Color Urine Appearance Urine pH Ur Specific [place] Urine Protein Urine Glucose (UA) Urine Ketones Urine Blood Urine Nitrite Ur Leukocyte Esterase Urine RBC Urine WBC Ur Squamous Epith Cells Urine Bacteria Hyaline Casts Stool Occult Blood T.pallidum Ab (EIA) Nonreactive Influenza Type A (PCR) Influenza Type B (PCR) RSV RNA Qual (PCR) SARS-CoV-2 RNA (RT-PCR) Blood Type Antibody Screen 01/22/24 01/22/24 01/22/24 13:38 18:24 20:28 WBC RBC Hgb Hct MCV MCH MCHC RDW Plt Count MPV Immature Gran % (Auto) Neut % (Auto) Lymph % (Auto) [place] % (Auto) Eos % (Auto) Baso % (Auto) Lymph # (Auto) Garrett # (Auto) Eos # (Auto) Baso # (Auto) Abs Immat Gran (auto) Absolute Neuts (auto) Absolute Nucleated RBC Nucleated RBC % (auto) Smear Tech's Comments PT INR Sodium Potassium Chloride Carbon Dioxide Anion Gap BUN Creatinine Estim Creat Clear Calc Estimated GFR POC Glucose 148 H 271 H 231 H Random Glucose Lactic Acid Calcium Magnesium Total Bilirubin AST ALT Alkaline Phosphatase Troponin I High Sens C-Reactive Protein Total Protein Albumin Urine Color Urine Appearance Urine pH Ur Specific [place] Urine Protein Urine Glucose (UA) Urine Ketones Urine Blood Urine Nitrite Ur Leukocyte Esterase Urine RBC Urine WBC Ur Squamous Epith Cells Urine Bacteria Hyaline Casts Stool Occult Blood T.pallidum Ab (EIA) Influenza Type A (PCR) Influenza Type B (PCR) RSV RNA Qual (PCR) SARS-CoV-2 RNA (RT-PCR) Blood Type Antibody Screen 01/23/24 01/23/24 01/23/24 00:22 06:21 10:17 WBC 10.9 H RBC 3.60 L Hgb 11.0 L Hct 32.3 L MCV 89.7 MCH 30.6 MCHC 34.1 RDW 12.7 Plt Count 144 L MPV 10.7 Immature Gran % (Auto) Neut % (Auto) Lymph % (Auto) Garrett % (Auto) Eos % (Auto) Baso % (Auto) Lymph # (Auto) Garrett # (Auto) Eos # (Auto) Baso # (Auto) Abs Immat Gran (auto) Absolute Neuts (auto) Absolute Nucleated RBC 0.000 Nucleated RBC % (auto) 0.0 Smear Tech's Comments PT INR Sodium 136 Potassium 2.9 L* D Chloride 104 Carbon Dioxide 23 Anion Gap 12 BUN 15 Creatinine 0.72 Estim Creat Clear Calc 117.8 Estimated GFR > 60 POC Glucose 155 H 148 H Random Glucose 162 H Lactic Acid Calcium 7.7 L Magnesium 1.6 Total Bilirubin AST ALT Alkaline Phosphatase Troponin I High Sens C-Reactive Protein Total Protein Albumin Urine Color Urine Appearance Urine pH Ur Specific [place] Urine Protein Urine Glucose (UA) Urine Ketones Urine Blood Urine Nitrite Ur Leukocyte Esterase Urine RBC Urine WBC Ur Squamous Epith Cells Urine Bacteria Hyaline Casts Stool Occult Blood T.pallidum Ab (EIA) Influenza Type A (PCR) Influenza Type B (PCR) RSV RNA Qual (PCR) SARS-CoV-2 RNA (RT-PCR) Blood Type Antibody Screen 01/23/24 01/23/24 01/23/24 11:05 11:14 13:46 WBC RBC Hgb Hct MCV MCH MCHC RDW Plt Count MPV Immature Gran % (Auto) Neut % (Auto) Lymph % (Auto) [place] % (Auto) Eos % (Auto) Baso % (Auto) Lymph # (Auto) [place] # (Auto) Eos # (Auto) Baso # (Auto) Abs Immat Gran (auto) Absolute Neuts (auto) Absolute Nucleated RBC Nucleated RBC % (auto) Smear Tech's Comments PT INR Sodium 136 Potassium 3.7 D Chloride 106 Carbon Dioxide 22 Anion Gap 12 BUN Creatinine Estim Creat Clear Calc Estimated GFR POC Glucose 155 H 138 H Random Glucose Lactic Acid Calcium Magnesium Total Bilirubin AST ALT Alkaline Phosphatase Troponin I High Sens C-Reactive Protein Total Protein Albumin Urine Color Urine Appearance Urine pH Ur Specific [place] Urine Protein Urine Glucose (UA) Urine Ketones Urine Blood Urine Nitrite Ur Leukocyte Esterase Urine RBC Urine WBC Ur Squamous Epith Cells Urine Bacteria Hyaline Casts Stool Occult Blood T.pallidum Ab (EIA) Influenza Type A (PCR) Influenza Type B (PCR) RSV RNA Qual (PCR) SARS-CoV-2 RNA (RT-PCR) Blood Type Antibody Screen Airway Mallampati Class: III TM Dist: >3cm Neck ROM: Full Heart: RRR Lungs: CTA Assessment and Plan Assessment Anesthesia Assessment: Anesthesia Plan Discussed Final Anesthetic Review Family History of Problems with Anesthesia: No History of Problems with Anesthesia: No NPO: Yes ASA Class: III Final Preanesthetic Review: Meds/Allgs Chart Reviewed, Consent Obtained/Reviewed and Anes Risks/Benef Reviewed Anesthetic Plan Anesthetic Plan: MAC: Disposition: Standard PACU
--- NOTE | 2024-01-23 14:38 | W.PM.OPN ---
Operative Note Operative Note Date of Service: 01/23/24 Narrative: Operative Information Procedure Description: Colonoscopy Indication: proctitis Anesthesia: MAC COLONOSCOPY Instrument: Olympus variable stiffness ADULT scope 190L Colonoscopy Monitoring: Vital signs and clinical assessment, continuous EKG monitoring, Pulse oximetry, Carbon Dioxide monitoring and blood pressure monitoring were done throughout the procedure. Colon withdrawal time was 14 minutes. Procedure: The patient was placed in the left lateral decubitis position and pre-procedure medications were administered. After a digital rectal examination of the ano-rectum, the video colonoscope was inserted into the rectum and advanced through the colon to the cecum/TI. The colonoscope was slowly withdrawn in a retrograde panoramic fashion and the colon mucosa was carefully examined including a retroflexed view of the rectum. Findings and interventions are described below. Procedure Difficulty: moderate Findings: Terminal Ileum-normal Cecum:normal Ascending Colon: normal Transverse Colon -normal Descending Colon:normal Sigmoid Colon: normal Rectum: Retroflexion with small internal hemorrhoids seen, grade I, random rectal bx taken but mucosa looked normal Anorectum - normal Intervention: biopsies Colon preparation: [place] Bowel Preparation Scale Right colon; 1-2 Transverse colon: 2 Left colon; 1-2 (0 = Unprepared colon segment with mucosa not seen due to solid stool that cannot be cleared. 1 = Portion of mucosa of the colon segment seen, but other areas of the colon segment not well seen due to staining, residual stool and/or opaque liquid. 2 = Minor amount of residual staining, small fragments of stool and/or opaque liquid, but mucosa of colon segment seen well. 3 = Entire mucosa of colon segment seen well with no residual staining, small fragments of stool or opaque liquid) Impression and Post Procedure Diagnosis: internal hemorrhoids Plan: High fiber diet leaflet Avoid straining at stool, epsom salts and sitz bath, anusol supps or cream Repeat Colonoscopy in 1-2 years due to fair prep or earlier if clinically indicated Above findings were reviewed with the patient and relevant handouts were provided if indicated.
[2024-01-23 15:18] LABS: Glucose, Whole Blood 120 mg/dL (60-115)
[2024-01-23] MEDS: 0.9 % Sodium Chloride Flush 3 ML SYRINGE IVFLUSH ×2 (16:00→20:26)
[2024-01-23 20:10] LABS: Glucose, Whole Blood 188 mg/dL (60-115)
[2024-01-23] MEDS: Insulin Lispro 100 UNIT/ML 3 ML VIAL SUBCUT (20:25)
[2024-01-23] MEDS: Atorvastatin Calcium 80 MG TABLET PO (20:25)
[2024-01-24 03:15] VITALS: BP 138/76; PULSE 83; RESP 20; TEMP 36.4; O2SAT 96
[2024-01-24] MEDS: Pantoprazole Sodium 40 MG/10 ML VIAL IVPUSH (06:15)
[2024-01-24 06:52] VITALS: BP 156/85; PULSE 79; RESP 18; TEMP 36; O2SAT 97
[2024-01-24 07:31] LABS: Glucose, Whole Blood 158 mg/dL (60-115)
[2024-01-24] MEDS: metroNIDAZOLE/NS 500 MG/100 ML PIGGYBACK 100 MG IV (08:23)
[2024-01-24] MEDS: Enalapril Maleate 10 MG TABLET PO (08:23)
[2024-01-24] MEDS: Insulin Lispro 100 UNIT/ML 3 ML VIAL SUBCUT ×2 (08:23→12:13)
[2024-01-24] MEDS: cefTRIAXone sodium 1 GM in 0.9 % Sodium Chloride 50 ML IV (08:23)
--- NOTE | 2024-01-24 09:50 | HO.POSTANES ---
Post Anesthesia Evaluation Post Anesthesia Evaluation Date of Service: 01/24/24 Vital Signs: Vital Signs Temp Pulse Resp BP Pulse Ox O2 Del Method 01/24/24 06:52 96.8 F 79 18 156/85 H 97 Room Air 01/24/24 03:15 97.6 F 83 20 138/76 96 Room Air 01/23/24 23:27 97.5 F 79 20 134/64 98 Room Air Anesthesia: Monitored Mental Status: Awake Pain Control: Satisfactory Nausea/Vomiting: None Hydration: Adequate Anesthesia-Related Issues: No Anes. Related Issues
[2024-01-24] MEDS: Doxycycline Hyclate 100 MG in 0.9 % Sodium Chloride 250 ML 166.67 MG IV (10:00)
[2024-01-24 11:04] VITALS: BP 151/80; PULSE 97; RESP 18; TEMP 36.3; O2SAT 97
[2024-01-24 11:27] LABS: Glucose, Whole Blood 214 mg/dL (60-115)
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
--- NOTE | 2024-01-24 13:39 | MHC.CM.PN ---
Pt is medically cleared for D/C home self-care, pt will arrange for his own ride home.
[2024-01-24 17:24] LABS: HIV RNA PCR Qn Copies Not Detected Copies/mL; HIV RNA PCR Qn Log Copies Not Detected Log cps/mL
== END 2024-01-24 14:41 | disposition home or self-care (01) | DRG 720 ==
LOC: HO.ED 01-22 02:01 → HO.EDOVER 01-22 03:26 → HO.IMC 01-23 00:11
PROVIDERS: Emergency Medicine; Internal Medicine Gastroenterology; Physician Assistant; Admitting Provider Internal Medicine; Emergency Provider Emergency Medicine; PCP General Practice; Visit Provider Internal Medicine
PROC: 0DJD8ZZ Inspection of Lower Intestinal Tract, Via Natural or Artificial Opening Endoscopic (ICD-10-PCS; CPT 45378; principal; 2024-01-23 16:30)
DX: A41.9 Sepsis, unspecified organism (principal); I10 Essential (primary) hypertension; K62.89 Other specified diseases of anus and rectum; E78.5 Hyperlipidemia, unspecified; N39.0 Urinary tract infection, site not specified; K64.0 First degree hemorrhoids; R65.20 Severe sepsis without septic shock; E11.9 Type 2 diabetes mellitus without complications; K21.9 Gastro-esophageal reflux disease without esophagitis; Z86.73 Personal history of transient ischemic attack (TIA), and cerebral infarction without residual deficits; Z20.822 Contact with and (suspected) exposure to COVID-19; Z79.4 Long term (current) use of insulin; Z79.82 Long term (current) use of aspirin; Z79.84 Long term (current) use of oral hypoglycemic drugs; Z79.899 Other long term (current) drug therapy
CPT/HCPCS: 0241U; 36415; 71045; 74177; 80048; 80051; 80053; 81001; 82272; 82947; 83605; 83735; 84484; 85025; 85027; 85610; 86140; 86780; 86850; 86900; 86901; 87040; 87086; 87536; 87900; 88305; 93005; 93971; 99285; C9113; J0696; J1836; J1885; J2405; J2543; J2704; J3480; J7120; P9047; Q9967

== ENCOUNTER → 2024-01-21 18:22 | Outpatient (BNV) | payer BC, SELFPAY | PROVIDERS: Admitting Provider Internal Medicine; Emergency Provider Emergency Medicine; PCP General Practice; Visit Provider Internal Medicine Cardiovascular Disease | DX: R10.9 Unspecified abdominal pain (principal) | CPT/HCPCS: 93010 ==

== ENCOUNTER → 2024-01-22 03:21 | Outpatient (BNV) | payer BC, SELFPAY | PROVIDERS: Admitting Provider Internal Medicine; Emergency Provider Emergency Medicine; PCP General Practice; Visit Provider Internal Medicine Gastroenterology | DX: K62.89 Other specified diseases of anus and rectum (principal); K64.0 First degree hemorrhoids | CPT/HCPCS: 45380; 99223; 99232 ==

== ENCOUNTER → 2024-01-22 03:21 | Outpatient (BNV) | payer BC, SELFPAY | PROVIDERS: Admitting Provider Internal Medicine; Emergency Provider Emergency Medicine; PCP General Practice; Visit Provider Internal Medicine | DX: N39.0 Urinary tract infection, site not specified (principal); K62.89 Other specified diseases of anus and rectum; R11.2 Nausea with vomiting, unspecified; E11.9 Type 2 diabetes mellitus without complications; I10 Essential (primary) hypertension; E78.5 Hyperlipidemia, unspecified | CPT/HCPCS: 99223; 99232; 99239; 99499 ==

== ENCOUNTER 2024-01-29 09:37 | Outpatient (REF) | payer BC, SELFPAY ==
[2024-01-29 11:48] LABS: Anion Gap 10 (12-20); Blood Urea Nitrogen 15 mg/dL (9-16); Calcium 9.7 mg/dL (8.4-10.2); Carbon Dioxide 30 mmol/L (22-29); Chloride 102 mmol/L (96-108); Estimated Glomerular Filt Rate > 60; Glucose Random 267 mg/dL (60-115); Potassium 4.5 mmol/L (3.3-5.1); Sodium 137 mmol/L (135-145)
== END 2024-01-29 09:38 | disposition home or self-care (01) ==
LOC: HO.HHCL 09:37
PROVIDERS: Visit Provider Student in an Organized Health Care Education/Training Program
DX: R60.0 Localized edema (principal)
CPT/HCPCS: 36415; 80048

== ENCOUNTER 2024-02-19 15:45 | Outpatient (REF) | payer BC, SELFPAY ==
[2024-02-19 17:49] LABS: Cholesterol 132 mg/dL (<200); HDL Cholesterol 43 mg/dL (>40); LDL Cholesterol Calculated 59 mg/dL (<100); Triglycerides 150 mg/dL (<150)
[2024-02-19 18:01] LABS: Creatinine Urine 74.96 mg/dL; Microalbum/Creatinine Ratio Ur 358.8 ug/mg cr (<30)
[2024-02-20 04:35] LABS: HIV AB/AG Nonreactive (Nonreactive); HIV Num 1 0.06 S/CO (0.00-0.99); ~HepC Num1 0.24 S/CO (0.00-0.79); ~Hepatitis C Antibody Nonreactive (Nonreactive)
== END 2024-02-19 15:46 | disposition home or self-care (01) ==
LOC: HO.HHCL 15:45
PROVIDERS: Visit Provider General Practice
DX: Z00.00 Encounter for general adult medical examination without abnormal findings (principal); Z11.4 Encounter for screening for human immunodeficiency virus [HIV]; E11.65 Type 2 diabetes mellitus with hyperglycemia; Z79.4 Long term (current) use of insulin
CPT/HCPCS: 36415; 80061; 82043; 82570; 86803; 87389

== ENCOUNTER 2024-05-10 07:46 | Outpatient (REF) | payer BC, SELFPAY ==
[2024-05-10 09:38] LABS: Anion Gap 12 (12-20); Blood Urea Nitrogen 15 mg/dL (9-16); Calcium 9.1 mg/dL (8.4-10.2); Carbon Dioxide 25 mmol/L (22-29); Chloride 103 mmol/L (96-108); Estimated Glomerular Filt Rate > 60; Glucose Random 249 mg/dL (60-115); Potassium 4.1 mmol/L (3.3-5.1); Sodium 136 mmol/L (135-145)
[2024-05-10 09:46] LABS: Vitamin D 25-OH Total 22.5 ng/mL (>30)
== END 2024-05-10 07:47 | disposition home or self-care (01) ==
LOC: HO.LAB 07:46
PROVIDERS: PCP General Practice; Visit Provider General Practice
DX: E11.65 Type 2 diabetes mellitus with hyperglycemia (principal); I10 Essential (primary) hypertension; E55.9 Vitamin D deficiency, unspecified; Z79.4 Long term (current) use of insulin
CPT/HCPCS: 36415; 80048; 82306

== ENCOUNTER 2024-06-25 08:59 | Outpatient (REF) | payer BC, SELFPAY ==
[2024-06-25 13:21] LABS: CT PCR NOT DETECTED (Not Detect.); NG PCR NOT DETECTED (Not Detect.)
[2024-06-27 19:08] LABS: Trichomonas vag. RNA Ur Male NOT DETECTED (NOT DETECTED)
== END 2024-06-25 09:00 | disposition home or self-care (01) ==
LOC: HO.HHCL 08:59
PROVIDERS: Visit Provider Emergency Medicine
DX: Z71.1 Person with feared health complaint in whom no diagnosis is made (principal)
CPT/HCPCS: 36415; 87491; 87591; 87661

== ENCOUNTER 2024-10-09 17:46 | Outpatient (REF) | payer BC, SELFPAY ==
[2024-10-11 02:34] LABS: Trichomonas vaginalis RNA NOT DETECTED (NOT DETECTED)
== END 2024-10-09 17:47 | disposition home or self-care (01) ==
LOC: HO.HHCLNP 17:46
PROVIDERS: Visit Provider Nurse Practitioner
DX: Z20.2 Contact with and (suspected) exposure to infections with a predominantly sexual mode of transmission (principal)
CPT/HCPCS: 36415; 87661

== ENCOUNTER 2024-12-09 11:13 | Outpatient (REF) | payer BC, SELFPAY | END 2024-12-09 11:14 | disposition home or self-care (01) | LOC: HO.HHCX 11:13 | PROVIDERS: Visit Provider Internal Medicine | DX: R07.81 Pleurodynia (principal); M25.512 Pain in left shoulder; W19.XXXD Unspecified fall, subsequent encounter | CPT/HCPCS: 71101; 73000; 73030 ==

== ENCOUNTER → 2024-12-09 11:14 | Outpatient (BNV) | payer BC, SELFPAY | PROVIDERS: Visit Provider Radiology Diagnostic Radiology | DX: M25.512 Pain in left shoulder (principal) | CPT/HCPCS: 71101; 73000; 73030 ==

== ENCOUNTER 2025-02-07 08:17 | Emergency (ER) | payer SELFPAY ==
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
[2025-02-07 08:25] VITALS: BP 147/93; PULSE 102; RESP 20; TEMP 37; O2SAT 100; BMI 29.6
[2025-02-07 10:00] VITALS: BP 146/88; PULSE 98; RESP 18; TEMP 36.6; O2SAT 98
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
[2025-02-07 11:57] VITALS: BP 141/90; PULSE 96; RESP 20; TEMP 36.7; O2SAT 99
--- NOTE | 2025-02-07 11:57 | PC.NURSE ---
patient a&ox3, vss, pt c/o 02/06 pain, will discharge home and will medicate with tylenol as needed at home.
[2025-02-07 11:58] VITALS: BP 141/90; PULSE 96; RESP 20; TEMP 36.7; O2SAT 99
--- OUTSIDE RECORDS SUMMARY | 2025-02-07 11:59 | XMS_ITS | Encounter Summary ---
Author Organization [facility] Address [address] [place] [address] [address] [place] [address] Care Team Providers Care Edger Automatic Name Role Phone Jamia Cedeno MD Primary Care Provider [phone] Marianna Palm PharmD Unavailable [phone] Encounter Details Date Type Department Care Team (Late st Contact Info) Description 06/27/2023 Abstract [facility] [address] [place] [address] [phone] Jamia Cedeno MD [address] [place] [address] Social History Tobacco Use Types Packs/Day Years Used Date Smoking Tobacco: Never Assessed Sex and Gender Information Value Date Recorded Sex Assigned at Male 08/29/2022 10:18 AM EDT Legal Sex Male 10:18 AM EDT Gender Identity Male 08/29/2022 10:18 AM EDT Sexual Orientation Lesbian or Shen 08/29/2022 10 :18 AM EDT documented as of this encounter Plan of Treatment Upcoming Encounters Date Type Department Care Team (Late st Contact Info) Description 03/10/2025 9:00 AM EDT Medication Management [facility] [address] [place] [id number] Marianna Palm, PharmD [address] [place] [address] 03/28/2025 3:45 PM EDT Office Visit [facility] [address] [place] [phone] Jamia Cedeno MD [address] [place] [address] documented as of this encounter Procedures Procedure Name Priority Date/Time Associated Diagnosis Comments COLONOSCOPY Routine 08/20/2019 documented in this encounter Results * Colonoscopy (08/20/2019) Colonoscopy Normal Normal Narrative Brenda Bonner - 08/20/2019 Recommeded 5 year follow up ([facility] ) us Historical Provider [employer] MAINTENANCE Edited Result - Final documented in this encounter Visit Diagnoses Not on filedocumented in this encounter Care Teams Edger Automatic Relationship Specialty Start Date End Date Jamia Cedeno MD [address] [place] [address] PCP - General Family Medicine 06/22/21 Marianna Palm PharmD [address] [place] [address] Pharmacist Internal Medicine 02/23/24 documented as of this encounter
--- OUTSIDE RECORDS SUMMARY | 2025-02-07 11:59 | XMS_ITS | Encounter Summary ---
Author Organization [facility] Address [address] [place] [address] [address] [place] [address] Care Team Providers Care Tankage Grinder Operator Name Role Phone Jamia Cedeno MD Primary Care Provider [phone] Marianna Palm PharmD Unavailable [phone] Encounter Details Date Type Department Care Team (Late st Contact Info) Description 05/10/2024 Orders Only [facility] [address] [place] [phone] Jamia Cedeno MD [address] [place] [address] Social History Tobacco Use Types Packs/Day Years Used Date Smoking Tobacco: Never Passive Smoke Exposure: Never Smokeless Tobacco: Never Alcohol Use Standard Drinks/Week Comments Never 0 (1 standard drink = 0.6 oz pur e alcohol) Sex and Gender Information Value Date Recorded [...] Description 03/10/2025 9:00 AM EDT Medication Management [facility] [address] [place] [phone] Marianna Palm, PharmD [address] [place] [address] 03/28/2025 3:45 PM EDT Office Visit [facility] [address] [place] [address], [place] [address] Jamia Cedeno MD [address] [place] [phone] documented as of this encounter Goals Goal Patient Goal Type Associated Problems Recent Progress Patient-Stated? Author Patient will adhere to medication regimen General No Puia, Marianna, PharmD Note: Restart [employer] 02/26/24 Hemoglobin A1c < 7 Result Component 11.8(01/03/20 11:47 AM EST) No Kelsyia, Marianna, PharmD Record your blood sugar as directed Result Component No Puia Marianna, PharmD documented as of this encounter Visit Diagnoses Not on filedocumented in this encounter Care Teams Tankage Grinder Operator Relationship Specialty Start Date End Date Jamia Cedeno MD [address] [place] [id number] PCP - General Family Medicine 06/22/21 Arpita, Marianna, PharmD [address] [place] [phone] Pharmacist Internal Medicine 02/23/24 documented as of this encounter
--- OUTSIDE RECORDS SUMMARY | 2025-02-07 11:59 | XMS_ITS | Clinical Summary ---
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 Left (12/09/2024 11:14 AM EST) Anatomical Region Laterality Modality Body, Clavicle Left Radiographic Diane ging 12/09/2024 11:1 4 AM EST Narrative 12/09/2024 12:30 PM EST ?[facility] ?[address] ?[place] [address] ?XRay Report ? Signed ? Patient: Giuseppe Mercer ?MR#: ?? [id number] ? : 1965 ?Acct:[id number] ? Age/Sex: 58 / M ?ADM Date: 02/10/25 ? Loc: HO.HHCX ? Attending Dr: Ellen Tucker MD ? Ordering Physician: Ellen Tucker MD ?? Date of Service: 12/09/24 ?? Procedure(s): XR clavicle LT ?? Accession Number(s): [id number] ? cc: Ellen Tucker MD ? EXAMINATION: ?? XR CLAVICLE, LEFT ? CLINICAL INFORMATION: ?? sp fall/ left sided chest pain/shoudler pain/ clavicle area pain ? COMPARISON: ?? None available. ? TECHNIQUE: ?? Two views of the left clavicle. ? FINDINGS: ?? No acute cortical disruption. No lytic or blastic lesions. ? XR/XR clavicle LT ?? IMPRESSION: ?? No acute fracture. Negative exam. ? Electronically signed by: ??Lakhwinder Sagastume MD ??12/09/2024 12:28 PM ?? EST RP ? Dictated By: ?Lakhwinder Miranda MD ? Signed By: ?<Electronically signed by Lakhwinder Mackenzie MD in OV> ? 12/09/24 1228 ? DD/ 1114 ? TD/TT: 12/09/24 1148 ? Histology Tech: ? Procedure Note Oscar, Image - 12/09/[address] [address] XRay Report Signed Patient: Laura MercerR#: [id number] : 1965Acct:[id number] Age/Sex: 58 / MADM Date: 12/09/24 Loc: HO.HHCX Attending Dr: Ellen Tucker MD Ordering Physician: Ellen Tucker MD Date of Service: 12/09/24 Procedure(s): XR clavicle LT Accession Number(s): [id number] cc: Ellen Tucker MD EXAMINATION: XR CLAVICLE, LEFT CLINICAL INFORMATION: sp fall/ left sided chest pain/shoudler pain/ clavicle area pain COMPARISON: None available. TECHNIQUE: Two views of the left clavicle. FINDINGS: No acute cortical disruption. No lytic or blastic lesions. XR/XR clavicle LT IMPRESSION: No acute fracture. Negative exam. Electronically signed by: Lakhwinder Sagastume MD 12/09/2024 12:28 PM EST Dictated By: Lakhwinder Miranda MD Signed By: <Electronically signed by Lakhwinder Mackenzie MDin OV> 12/09/24 1228 DD/ 1114 TD/TT: 12/09/24 1148 Histology Tech: Ellen Tucker MD IMG XR PROCEDURES Final Result * (ABNORMAL) Albumin, Random Urine W/Creatinine (02/19/2024 3:47 PM EDT) Creatinine, Urine 74.96 mg/dL [facility] Microalbumin Urine 269.0 mg/L H [facility] Microalbum Creatinine Ratio Ur 358.8(H) <30 ug/mg cr [facility] Comment:Albumin/Creatinine R atio Reference Ranges: Normal: < 30 ug/mg creatinine Microalbuminuria: 30 - 300 ug/mg creatinineClinical Albuminuria: > 300 ug/mg creatinine Urine (Urine, Random) 02/19/2024 3:47 PM EDT 02/19/2024 5:23 PM EDT Jamia Cedeno MD LAB URINE ORDERABLES Final Res ult Performing Organization Address [facility]/ZIP Co de Phone Number [facility] [address] [place] [phone] * Hepatitis C Antibody with Reflex to HCV, RNA, Quantitative, Real-Time PCR (02/19/2024 3:47 PM EDT) Pathologist [facility] Hepatitis C Antibody Nonreactive Nonreactive [facility] Comment:Antibodies to HCV no t detected; does not exclude early acuteHCV infection. Blood Venous blood specimen / Unknown 02/19/2024 3:47 PM EDT 02/19/2024 5:24 PM EDT Jamia Cedeno MD LAB BLOOD ORDERABLES Final Res ult Performing Organization Address [facility] Co de Phone Number [facility] [address] [place] [phone] * HIV-1/2 Antigen and Antibodies, Fourth Generation, with Reflexes (02/19/2024 3:47 PM EDT) HIV AB/AG Nonreactive Nonreactive [facility] Comment:HIV-1 p24 Ag and/or HIV-1/HIV-2 Ab not detected.A test result that is nonreactive does not exclude thepossibility of exposure to or infection with HIV-1 and/orHIV-2. Nonreactive results in this assay for individualswith prior exposure to HIV-1 and/or HIV-2 may be due toantigen and antibody levels that are below the limit ofdetection of this assay.The [employer] HIV Ag/Ab Combo assay result andsupplemental assay results should be interpreted inconjunction with the patient's clinical presentation,history and other laboratory results. If the results areinconsistent with clinical evidence, additional testing issuggested to confirm the result. Blood Venous blood specimen / Unknown 02/19/2024 3:47 PM EDT 02/19/2024 5:24 PM EDT us Jamia Cedeno MD LAB BLOOD ORDERABLES Final Res ult [facility] [address] [place] [phone] [phone] * (ABNORMAL) Lipid Panel, Standard (02/19/2024 3:47 PM EDT) Triglycerides 150(H) <150 mg/dL [facility] Comment:Desirable Triglyceri de: less than 150 mg/dLBorderline High Triglyceride 150-199 mg/dLHigh Triglyceride: 200-499 mg/dLVery High Triglyceride: greater than or equal to 5OO mg/dL Cholesterol 132 <200 mg/dL [facility] Comment:Desirable Cholestero l: less than 200 mg/dLBorderline High Cholesterol: 200-239 mg/dLHigh Cholesterol: greater than 239 mg/dL LDL Cholesterol Calculated 59 <100 mg/dL [facility] Comment:Desirable LDL: less than 100 mg/dLNear Optimal/Above Optimal LDL: 110- 129 mg/dLBorderline High LDL: 130-159 mg/dLHigh LDL: 160-189 mg/dLVery High LDL: greater than or equal to 190 mg/dL HDL Cholesterol 43 >40 mg/dL [facility] Comment:Desirable HDL: great er than 40 mg/dL Note: This HDL assay may give artificially low results in patients with liver disease. Blood Venous blood specimen / Unknown 02/19/2024 3:47 PM EDT 02/19/2024 5:24 PM EDT us Jamia Cedeno MD LAB BLOOD ORDERABLES Final Res ult [facility] [address] [place] [phone] [phone] * Colonoscopy (08/20/2019) Colonoscopy Normal Normal Narrative Brenda Bonner - 08/20/2019 Recommeded 5 year follow up ([facility] [place] ) us Historical Provider HEALTH MAINTENANCE Edited Result - Final from Last 3 Months or Most Recently Relevant to Health Maintenance [place] [address] [place] [address] PPO Care Teams Respiratory Care Technician Relationship Specialty Start Date End Date Jamia Cedeno MD [address] [place], [place] [phone] PCP - General Family Medicine 06/22/21 Marianna Palm PharmD [address] [place] [address] Pharmacist Internal Medicine 02/23/24
--- OUTSIDE RECORDS SUMMARY | 2025-02-07 11:59 | XMS_ITS | Encounter Summary ---
Author Organization [employer] Address [address] [place] [address] 7[address] [place] [address] Care Team Providers Care Erisa Attorney Name Role Phone Jamia Cedeno MD Primary Care Provider [phone] Marianna Palm PharmD Unavailable [phone] Encounter Details Date Type Department Care Team (Late st Contact Info) Description 02/07/2025 Orders Only [facility] External Provider, [facility] Social History Tobacco Use Types Packs/Day Years [...] Description 03/10/2025 9:00 AM EDT Medication Management [facility] [address] [place] [phone] Marianna Palm, PharmD [address] [place] [address] 03/28/2025 3:45 PM EDT Office Visit [facility] [address] [place] [address] Jamia Cedeno MD [address] [place] [address] (work) documented as of this encounter Goals Goal Patient Goal Type Associated Problems Recent Progress Patient-Stated? Author Patient will adhere to medication regimen General No Marianna Palm PharmD Note: Restart [employer] 02/26/24 Hemoglobin A1c < 7 Result Component 11.8(01/03/20 11:47 AM EST) No Marianna Palm PharmD Record your blood sugar as directed Result Component No Marianna Palm PharmD documented as of this encounter Procedures Procedure Name Priority Date/Time Associated Diagnosis Comments XR HIP LEFT WITH PELVIS 1 VIEW Routine 02/07/2025 8:52 AM EDT XR KNEE 1-2 VIEWS LEFT Routine 02/07/2025 8:52 AM EDT documented in this encounter Results * XR Hip left with Pelvis 1 view (02/07/2025 8:52 AM EDT) Anatomical Region Laterality Modality Lower Extremities, Hip Bilateral Radiograp hic Imaging 02/07/2025 8:52 AM EDT Narrative 02/07/2025 9:08 AM EDT ? [facility] ?[address] ?[place] [address] ?XRay Report ? Signed ? Patient: Giuseppe Mercer ?MR#: ?? [id number] ? : 1965 ?Acct:[id number] ? Age/Sex: 59 / M ?ADM Date: 02/07/25 ? Loc: HO.ED ? Attending Dr: ? Ordering Physician: Generic ED Physician ?? Date of Service: 02/07/25 ?? Procedure(s): XR hip LT w PEL1V ?? Accession Number(s): [id number] ? cc: Generic ED Physician; [facility] ? EXAMINATION: ??XR HIP 1 VIEW LEFT [...] ?02/07/25904 ? DD/ ? TD/TT: 02/07/25851 ? Data Assistant: ? Procedure Note Donbishopinterpreter, Image - 02/07/2025 [place] [address] XRay Report Signed Patient: Laura MercerR#: [id number] : 1965Acct:[id number] Age/Sex: 59 / MADM Date: 02/07/25 Loc: .ED Attending Dr: Ordering Physician: Generic ED Physician Date of Service: 02/07/25 Procedure(s): XR hip LT w PEL1V Accession Number(s): [id number] cc: [facility] ED Physician; [facility] EXAMINATION: XR HIP 1 VIEW LEFT WITH [...] in OV> 02/07/25904 DD/ 1 TD/TT: 02/07/25851 Data Assistant: [facility] External Provider IMG XR PROCEDURES Final Result * XR Knee 1-2 Views Left (02/07/2025 8:52 AM EDT) Anatomical Region Laterality Modality Lower Extremities, Knee Left Radiogra phic Imaging 02/07/2025 8:52 AM EDT Narrative 02/07/2025 9:07 AM EDT ? [facility] ?[address] ?[place] [address] ?XRay Report ? Signed ? Patient: Giuseppe Mercer ?MR#: ?? [id number] ? : 1965 ?Acct:[id number] ? Age/Sex: 59 / M ?ADM Date: 02/07/25 ? Loc: HO.ED ? Attending Dr: ? Ordering Physician: Generic ED Physician ?? Date of Service: 02/07/25 ?? Procedure(s): XR knee LT 2V ?? Accession Number(s): [id number] ? cc: Generic ED Physician; [facility] ? EXAMINATION: ??XR KNEE 1-2 VIEWS LEFT [...] MD in OV> ?02/07/25 0904 ? DD/ 08 ? TD/TT: 02/07/25 08 ? Data Assistant: ? Procedure Note Giorgio Moore - 02/07/[address] [address] XRay Report Signed Patient: Chidi AllenLauraR#: [id number] : 1965Acct:[id number] Age/Sex: 59 / MADM Date: 02/07/25 Loc: .ED Attending Dr: Ordering Physician: Kuldip ED Physician Date of Service: 02/07/25 Procedure(s): XR knee LT 2V Accession Number(s): [id number] cc: [facility] ED Physician; [facility] EXAMINATION: XR KNEE 1-2 VIEWS LEFT HISTORY: [...] in OV> 02/07/25 0904 DD/ TD/TT: 02/07/2552 Data Assistant: [facility] External Provider IMG XR PROCEDURES Final Result documented in this encounter Visit Diagnoses Not on filedocumented in this encounter Care Teams Erisa Attorney Relationship Specialty Start Date End Date Jamia Cedeno MD [address] [place] [address] PCP - General Family Medicine 06/22/21 Marianna Palm PharmD [address] [place] [address] Pharmacist Internal Medicine 02/23/24 documented as of this encounter
--- OUTSIDE RECORDS SUMMARY | 2025-02-07 11:59 | XMS_ITS | Encounter Summary ---
Author Organization [facility] Address [address] [place] [address] 7[address] [place] [address] Care Team Providers Care Tobacco Stripping Machine Operator Name Role Phone Jamia Cedeno MD Primary Care Provider [phone] Marianna Palm PharmD Unavailable [phone] Reason for Referral * Consultation (Routine) - Authorized Specialty Diagnoses / Procedures Referred By Contac t Referred To Contact Pharmacy Diagnoses Type 2 diabetes mellitus with hyperglycemia, with long-term current use of insulin (CMS/HCC) Jamia Cedeno MD [address] [place] [address] Phone: tel: fax: Referral ID Status Reason Start Date Expiration Date Visits Requested Visits Authorized [id number] Authorized Consult and Treat 08/16/2024 08/16/2025 6 6 Encounter Details Date Type Department Care Team (Late st Contact Info) Description 08/16/2024 Orders Only [facility] [address] [place] [address] Jamia Cedeno MD [address] [place] [address] Type 2 diabetes mellitus with hyperglycemia, with long-term current use of insulin (CMS/HCC) (Primary Dx) Social History Tobacco Use Types Packs/Day Years [...] Description 03/10/2025 9:00 AM EDT Medication Management [facility] [address] [place] [phone] Marianna Palm PharmD [address] [place] [phone] 03/28/2025 3:45 PM EDT Office Visit [facility] [address] [place] [phone] Jamia Cedeno MD [address] [place] [address] Scheduled Referrals Name Type Priority Associated Diagnoses Orde r Schedule Referral to Pharmacy CDTM Outpatient Referral Routine Type 2 diabetes mellitus with hyperglycemia, with long-term current use of insulin (CMS/[facility]) Ordered: 08/16/2024 documented as of this encounter Goals Goal Patient Goal Type Associated Problems Recent Progress Patient-Stated? Author Patient will adhere to medication regimen General No Marianna Palm, PharmD Note: Restart Medbox 02/26/24 Hemoglobin A1c < 7 Result Component 11.8(01/03/20 25 11:47 AM EST) No Marianna Palm, PharmD Record your blood sugar as directed Result Component No Marianna Palm, PharmD documented as of this encounter Visit Diagnoses Diagnosis Type 2 diabetes mellitus with hyperglycemia, with long-term current use of insulin (CMS/HCC)- Primary documented in this encounter Care Teams Tobacco Stripping Machine Operator Relationship Specialty Start Date End Date Jamia Cedeno MD [address] [place] [address] PCP - General Family Medicine 06/22/21 Marianna Palm, PharmD [address] [place] [address] Pharmacist Internal Medicine 02/23/24 documented as of this encounter
--- OUTSIDE RECORDS SUMMARY | 2025-02-07 11:59 | XMS_ITS | Encounter Summary ---
Author Organization [employer] [facility] Address [address] [place] [address] 7t [place] [address] Care Team Providers Care Fbi Field Agent Name Role Phone Jamia Cedeno MD Primary Care Provider [phone] Marianna Palm PharmD Unavailable [phone] Reason for Referral * Consultation (Routine) - Authorized Specialty Diagnoses / Procedures Referred By Contac t Referred To Contact Podiatry Diagnoses Type 2 diabetes mellitus with hyperglycemia, with long-term current use of insulin (CMS/HCC) Jamia Cedeno MD [address] [place] [address] Phone: tel: fax: [facility] [address] Phone: tel: fax: Referral ID Status Reason Start Date Expiration Date Visits Requested Visits Authorized [id number] Authorized Specialty Services Required 01/06/2025 01/06/2026 1 1 Encounter Details Date Type Department Care Team (Late st Contact Info) Description 01/06/2025 Orders Only [facility] [address] [place] [address] Jamia Cedeno MD [address] [place] [address] Type 2 diabetes mellitus with hyperglycemia, with [...] Description 03/10/2025 9:00 AM EDT Medication Management [facility] [address] [place] [address] Marianna Palm PharmD [address] [place] [address] 03/28/2025 3:45 PM EDT Office Visit [facility] [address] [place] [address] Jamia Cedeno MD [address] [place] [address] Scheduled Referrals Name Type Priority Associated Diagnoses Orde r Schedule Referral to Podiatry Outpatient Referral Routine Type 2 diabetes mellitus with hyperglycemia, with long-term current use of insulin (CMS/HCC) Expected: 01/06/2025 (Approximate), Expires: 01/06/2026 documented as of this encounter Goals Goal Patient Goal Type Associated Problems Recent Progress Patient-Stated? Author Patient will adhere to medication regimen General No Marianna Palm, PharmD Note: Restart Medbox 02/26/24 Hemoglobin A1c < 7 Result Component 11.8(01/03/20 25 11:47 AM EST) No KelsyiaLavonMarianna, PharmD Record your blood sugar as directed Result Component No PuLavon castleyssa, PharmD documented as of this encounter Visit Diagnoses Diagnosis Type 2 diabetes mellitus with hyperglycemia, with long-term current use of insulin (CMS/HCC)- Primary documented in this encounter Care Teams Fbi Field Agent Relationship Specialty Start Date End Date Jamia Cedeno MD [address] [place] [address] PCP - General Family Medicine 06/22/21 Marianna Palm PharmD [address] [place] [address] Pharmacist Internal Medicine 02/23/24 documented as of this encounter
== END 2025-02-07 12:01 | disposition home or self-care (01) ==
PROVIDERS: Emergency Provider Emergency Medicine Emergency Medical Services
DX: S80.12XA Contusion of left lower leg, initial encounter (principal); M79.605 Pain in left leg; M25.552 Pain in left hip; I10 Essential (primary) hypertension; V49.40XA Driver injured in collision with unspecified motor vehicles in traffic accident, initial encounter; Y93.9 Activity, unspecified; Y92.488 Other paved roadways as the place of occurrence of the external cause; Y99.8 Other external cause status; Z86.73 Personal history of transient ischemic attack (TIA), and cerebral infarction without residual deficits
CPT/HCPCS: 73502; 73560; 99283

== ENCOUNTER → 2025-02-07 08:52 | Outpatient (BNV) | payer BC, SELFPAY | PROVIDERS: Visit Provider Radiology Diagnostic Radiology | DX: M25.562 Pain in left knee (principal); M16.12 Unilateral primary osteoarthritis, left hip | CPT/HCPCS: 73502; 73560 ==

== ENCOUNTER 2025-05-13 09:40 | Outpatient (REF) | payer BC, SELFPAY ==
--- OUTSIDE RECORDS SUMMARY | 2025-05-13 10:23 | XMS_ITS | Encounter Summary ---
Author Organization [employer] Address [address] [place] [address] 7 [place] [address] Care Team Providers Care Retread Operator Name Role Phone Jamia Cedeno MD Primary Care Provider [phone] Marianna Palm PharmD Unavailable [phone] Encounter Details Date Type Department Care Team ([facility] st Contact Info) Description 06/27/2023 Abstract [facility] [address] [place], [place] [phone] Jamia Cedeno MD [address] [place], [place] [phone] Social History Tobacco Use Types Packs/Day Years Used Date Smoking Tobacco: Never Assessed Sex and Gender Information Value Date Recorded Sex Assigned at Male 08/29/2022 10:18 AM EDT Legal Sex Male 10:18 AM EDT Gender Identity Male 08/29/2022 10:18 AM EDT Sexual Orientation Lesbian or Shen 08/29/2022 10 :18 AM EDT documented as of this encounter Plan of Treatment Not on file documented as of this encounter Procedures Procedure Name Priority Date/Time Associated Diagnosis Comments COLONOSCOPY Routine 08/20/2019 documented in this encounter Results * Colonoscopy (08/20/2019) Colonoscopy Normal Normal Narrative Brenda Bonner - 08/20/2019 Recommeded 5 year follow up ([facility] [place] ) us Historical Provider HEALTH MAINTENANCE Edited Result - Final documented in this encounter Visit Diagnoses Not on filedocumented in this encounter Care Teams Retread Operator Relationship Specialty Start Date End Date Jamia Cedeno MD [address] [place], [place] [phone] PCP - General Family Medicine 06/22/21 Marianna Palm PharmD [address] [place] [address] Pharmacist Internal Medicine 02/23/24 documented as of this encounter
[2025-05-13 12:13] LABS: Alanine Aminotransferase 29 U/L (0-40); Albumin Level 4.3 g/dL (3.5-5.0); Alkaline Phosphatase 149 U/L (39-117); Anion Gap 12 (12-20); Aspartate Amino Transferase 23 U/L (5-37); Blood Urea Nitrogen 16 mg/dL (9-16); Calcium 9.2 mg/dL (8.4-10.2); Carbon Dioxide 27 mmol/L (22-29); Chloride 101 mmol/L (96-108); Cholesterol 238 mg/dL (<200); Estimated Glomerular Filt Rate > 60; HDL Cholesterol 44 mg/dL (>40); Potassium 4.5 mmol/L (3.3-5.1); Sodium 135 mmol/L (135-145); Total Protein 7.4 g/dL (6.5-8.0); Triglycerides 188 mg/dL (<150)
== END 2025-05-13 09:41 | disposition home or self-care (01) ==
LOC: HO.HHCL 09:40
PROVIDERS: PCP General Practice; Visit Provider General Practice
DX: I10 Essential (primary) hypertension (principal); E11.65 Type 2 diabetes mellitus with hyperglycemia; E78.2 Mixed hyperlipidemia; Z79.4 Long term (current) use of insulin
CPT/HCPCS: 36415; 80048; 80061; 80076

== ENCOUNTER 2025-05-20 11:40 | Outpatient (REF) | payer BC, SELFPAY ==
--- OUTSIDE RECORDS SUMMARY | 2025-05-20 12:56 | XMS_ITS | Encounter Summary ---
Author Organization [employer] Address [address] [place] [address] [place] [address] Care Team Providers Care Patch Washer Name Role Phone Jamia Cedeno MD Primary Care Provider [phone] Marianna Palm PharmD Unavailable Encounter Details Date Type Department Care Team (Late st Contact Info) Description 06/27/2023 Abstract [facility] [address] [place] [phone] Jamia Cedeno MD [address] [place] [address] Social History Tobacco Use Types Packs/Day Years [...] Care Team (Late st Contact Info) Description 06/20/2025 11:00 AM EDT Medication Management [facility] [address] [place] [address] Marianna Palm, PharmD [address] [place] [address] documented as of this encounter Procedures Procedure Name Priority Date/Time Associated Diagnosis Comments COLONOSCOPY Routine 08/20/2019 documented in this encounter Results * Colonoscopy (08/20/2019) Colonoscopy Normal Normal Narrative Brenda Bonner - 08/20/2019 [place]com[place] [facility] [place] [place] us Historical Provider HEALTH MAINTENANCE Edited Result - Final documented in this encounter Visit Diagnoses Not on filedocumented in this encounter Care Teams Patch Washer Relationship Specialty Start Date End Date Jamia Cedeno MD [address] [place], [place] [phone] PCP - General Family Medicine 06/22/21 Marianna Palm PharmD [address] [place], [place] [phone] Pharmacist Internal Medicine 02/23/24 documented as of this encounter
[2025-05-20 15:07] LABS: Microalbum/Creatinine Ratio Ur 798.8 ug/mg cr (<30)
== END 2025-05-20 11:41 | disposition home or self-care (01) ==
LOC: HO.HHCL 11:40
PROVIDERS: PCP General Practice; Visit Provider General Practice
DX: E11.65 Type 2 diabetes mellitus with hyperglycemia (principal); A64 Unspecified sexually transmitted disease; Z79.4 Long term (current) use of insulin
CPT/HCPCS: 36415; 82043; 82570; 86695; 86696

== ENCOUNTER 2025-10-21 09:37 | Emergency (ER) | payer BC, SELFPAY ==
--- OUTSIDE RECORDS SUMMARY | 2025-10-21 09:00 | XMS_ITS | Encounter Summary ---
Author Organization [employer] Address [address] [place] [address] 7 [place] [address] Care Team Providers Care Electric Range Servicer Name Role Phone aJmia Cedeno MD Primary Care Provider [phone] Marianna Palm PharmD Unavailable [phone] Encounter Details Date Type Department Care Team (Late st Contact Info) Description 10/21/2025 9:00 AM EST Office Visit [facility] [address] [place] [address] Lee Conteh MD [address] [place] [address] Abscess of buttock, left (Primary Dx) Social History Tobacco Use Types Packs/Day Years Used Date Smoking Tobacco: Never Passive Smoke Exposure: Never Smokeless Tobacco: Never Tobacco Cessation:Counseling Given: Not Answered Alcohol Use Standard Drinks/Week Comments Never 0 (1 standard drink = 0.6 oz pur e alcohol) Depression Answer Date Recorded Patient Health Questionnaire-9 Score 0 05/20/2025 Patient Health Questionnaire-9 Score 0 05/20/2025 Last PHQ-9: Questionnaire Data Not on file 0 05/20/2025 Housing Stability Answer Date Recorded What is your housing situation today? I have jaon fulton 05/20/[address] you li ve. Do you have problems with any of the following? None of the above 05/20/2025 Food Insecurity Answer Date Recorded Within the past 12 months, y ou worried that your food would run out before you got money to buy more: Never True 05/20/2025 Within the past 12 months,th e food you bought just didn't last and you didn't have enough money to get more: Never True Transportation Answer Date Recorded In the past 12 months, has l ack of transportation kept you from medical appts, meetings, work or from getting things needed for daily living? No 05/20/2025 Utilities Answer Date Recorded In the past 12 months, has t he electric, gas, oil or water company threatened to shut off services in your home? No 05/20/2025 Depression Answer Date Recorded Patient Health Questionnaire-2 Score 0 05/20/2025 Internet Access Answer Date Recorded Internet Access Q1 Yes 05/20/2025 Internet Access Q2 Not on file 05/20/2025 Sex and Gender Information Value Date Recorded Sex Assigned at Male 08/29/2022 10:18 AM EDT Legal Sex Male 10:18 AM EDT Gender Identity Male 08/29/2022 10:18 AM EDT Sexual Orientation Lesbian or Shen 08/29/2022 10 :18 AM EDT documented as of this encounter Last Filed Vital Signs Vital Sign Reading Time Taken Comments Blood Pressure 142/83 10/21/2025 8:45 AM EST Pulse 90 10/21/2025 8:45 AM EST Temperature 36.7 C (98.1 F) 10/21/2025 8:45 AM EST Respiratory Rate 18 10/21/2025 8:45 AM EST Oxygen Saturation 98% 10/21/2025 8:45 AM EST Inhaled Oxygen Concentration - - Weight 79.4 kg (175 lb) 10/21/2025 8:45 AM EST Height - - Body Mass Index 26.61 12/09/2024 10:35 AM EST documented in this encounter Progress Notes * Lee Dickson MD - 10/21/2025 9:00 AM EST Images from the original note were not included. SUBJECTIVE Giuseppe Allen is a 59 y.o. male who presents for No chief complaint on file.. Giuseppe Allen, 59 years Left Lower Buttock Abscess - Noticed a large abscess in the left lower buttock 2 weeks ago - Persistent for 2 weeks prior to visit - Causes inability to sleep or sit down properly - History of diabetes HPI Review of Systems Constitutional: Negative for fever. HENT: Negative for sore throat. Respiratory: Negative for cough and shortness of breath. Cardiovascular: Negative for chest pain. Gastrointestinal: Negative for abdominal pain. Neurological: Negative for headaches. Allergies[1] OBJECTIVE Vitals: 10/21/25 0845 BP: (!) 142/83 BP Location: Left arm Patient Position: Sitting BP Cuff Size: Adult Pulse: 90 Resp: 18 Temp: 98.1 ??F (36.7 ??C) TempSrc: Temporal SpO2: 98% Weight: 175 lb (79.4 kg) Physical Exam Vitals reviewed. Constitutional: Appearance: Normal appearance. HENT: Head: Normocephalic and atraumatic. Right Ear: External ear normal. Left Ear: External ear normal. Nose: Nose normal. Mouth/Throat: Mouth: Mucous membranes are moist. Eyes: Conjunctiva/sclera: Conjunctivae normal. Cardiovascular: Rate and Rhythm: Normal rate and regular rhythm. Pulmonary: Effort: Pulmonary effort is normal. Breath sounds: Normal breath sounds. Skin: General: Skin is warm. Comments: Palpable mass left lower buttock with fluctuance approximately 5 x 6 cm. Redness and severe tenderness to paklpation. No active discharge. There is a central area of what it appears as scabbing. Neurological: Mental Status: He is alert. Mental status is at baseline. Assessment/Plan Problem List Items Addressed This Visit Abscess of buttock, left - Primary 59 yr old male with c/o severe pain left lower buttock. Pt reports he noticed a lump associated with redness and pain Exam is suggestive of a an abscess in the left lower buttock Pt is unable to sit or sleep as a result Plan: requiring urgent drainage and Antibiotics - Recommended immediate evaluation and incision and drainage at the emergency room. Advised that antibiotics alone are insufficient and that the procedure should be performed today. - Risks and side effects: Discussed risk of infection spreading to bloodstream if not treated promptly. Pt agreeable with plan will present to [facility] This note was drafted using Ambient (AI) technology. The patient/patient's guardian has been informed and has consented to the use of this technology: Yes Future Appointments Date Time Provider Department Center 11/13/2025 9:00 AM Marianna Palm PharmD MEDICINE [facility] [1] No Known Allergies documented in this encounter Miscellaneous Notes * Assessment & Plan Note - Lee Dickson MD - 10/21/2025 9:32 AM EST Associated Problem(s): Abscess of buttock, left 59 yr old male with c/o severe pain left lower buttock. Pt reports he noticed a lump associated with redness and pain Exam is suggestive of a an abscess in the left lower buttock Pt is unable to sit or sleep as a result Plan: requiring urgent drainage and Antibiotics - Recommended immediate evaluation and incision and drainage at the emergency room. Advised that antibiotics alone are insufficient and that the procedure should be performed today. - Risks and side effects: Discussed risk of infection spreading to bloodstream if not treated promptly. Pt agreeable with plan will present to [facility] documented in this encounter Plan of Treatment Upcoming Encounters Date Type Department Care Team (Late st Contact Info) Description 11/13/2025 9:00 AM EST Medication Management [facility] [address] [place] [address] Puia, Marianna, PharmD [address] [place] [address] documented as of this encounter Goals Goal Patient Goal Type Associated Problems Recent Progress Patient-Stated? Author Patient will adhere to medication regimen General No Puia, Marianna, PharmD Note: Restart Medbox 02/26/24 Hemoglobin A1c < 7 Result Component 8(08/21/2025 10:20 AM EDT) No Puia, Marianna, PharmD Record your blood sugar as directed Result Component No Puia, Marianna, PharmD Help patients manage their type 2 diabetes Care Plan Help patients manage their type 2 diabetes No Erin Iverson MA Weekly blood pressure task Care Plan Weekly blood pressure task No Erin Iverson MA Help patients manage their type 2 diabetes Care Plan Help patients manage their type 2 diabetes No Erin Iverson MA Patient has chronic kidney disease Care Plan Patient has chronic kidney disease No Erin Iverson MA Weekly blood pressure task Care Plan Weekly blood pressure task No Erin Iverson MA Patient has chronic kidney disease Care Plan Patient has chronic kidney disease No Erin Iverson MA Weekly blood pressure task Care Plan Weekly blood pressure task No Jamia Cedeno MD Weekly blood pressure task Care Plan Weekly blood pressure task No Jamia Cedeno MD Patient has chronic kidney disease Care Plan Patient has chronic kidney disease No Jamia Cedeno MD Patient has chronic kidney disease Care Plan Patient has chronic kidney disease No Jamia Cedeno MD Weekly blood pressure task Care Plan Weekly blood pressure task No Archana Mera Weekly blood pressure task Care Plan Weekly blood pressure task No Mera Archana Patient has chronic kidney disease Care Plan Patient has chronic kidney disease No Mera Archana Patient has chronic kidney disease Care Plan Patient has chronic kidney disease No MeraArchana Weekly blood pressure task Care Plan Weekly blood pressure task No Jones Daniels MA Weekly blood pressure task Care Plan Weekly blood pressure task No Jones Daniels MA Patient has chronic kidney disease Care Plan Patient has chronic kidney disease No Jones Daniels MA Patient has chronic kidney disease Care Plan Patient has chronic kidney disease No Erlinda Danielssmclifford [place] documented as of this encounter Visit Diagnoses Diagnosis Abscess of buttock, left- Primary documented in this encounter Additional Health Concerns Active Problems Noted Date Diagnosed Date Help patients manage their type 2 diabetes 10/16 Weekly blood pressure task 10/16/2025 Help patients manage their type 2 diabetes 10/16 Patient has chronic kidney disease 10/16/2025 Weekly blood pressure task 10/16/2025 Patient has chronic kidney disease 10/16/2025 Weekly blood pressure task 10/17/2025 Weekly blood pressure task 10/17/2025 Patient has chronic kidney disease 10/17/2025 Patient has chronic kidney disease 10/17/2025 Weekly blood pressure task 10/17/2025 Weekly blood pressure task 10/17/2025 Patient has chronic kidney disease 10/17/2025 Patient has chronic kidney disease 10/17/2025 Weekly blood pressure task 10/21/2025 Weekly blood pressure task 10/21/2025 Patient has chronic kidney disease 10/21/2025 Patient has chronic kidney disease 10/21/2025 Assessment Noted Time PHQ-9 Depression Total Score: 0 05/20/20 25 12:16 PM EDT documented as of this encounter Care Teams Electric Range Servicer Relationship Specialty Start Date End Date Jamia Cedeno MD [address] [place] [address] PCP - General Family Medicine 06/22/21 Marianna Palm PharmD [address] [place] [address] Pharmacist Internal Medicine 02/23/24 documented as of this encounter
[2025-10-21 09:50] VITALS: BP 152/86; PULSE 95; RESP 20; TEMP 36.8; O2SAT 97; BMI 27.7
[2025-10-21 12:58] VITALS: BP 147/84; PULSE 96; RESP 16; TEMP 36.8; O2SAT 99
--- NOTE | 2025-10-21 13:15 | ED_ITS ---
HPI - Skin/Abscess/Foreign Bdy General Chief complaint: Skin/Abscess/Foreign Body Stated complaint: Abscess on back Time Seen by Provider: 10/21/25 13:15 Source: patient Mode of arrival: ambulatory Limitations: no limitations History of Present Illness ED Provider: HPI narrative: 59-year-old male with a history of type 2 diabetes presenting with left mid thigh abscess on the dorsal aspect, no fevers or chills, went to [facility] was told to come to ED for drainage. No fevers or chills, no back pain, though injury, patient states he has frequent folliculitis. Related Data Home Medications ?Medication ?Instructions ?Recorded ?Confirmed insulin glargine 100 unit/mL (3 80 unit subcut BEDTIME 12/27/21 01/22/24 mL) subcutaneous pen (Lantus Solostar U-100 Insulin) enalapril maleate 10 mg tablet 10 mg PO DAILY 09/10/23 01/22/24 multivitamin 1 tab PO DAILY 09/10/2312/29 empagliflozin 10 mg tablet 10 mg PO DAILY 01/22/24 (Jardiance) Previous Rx's ?Medication ?Instructions ?Recorded aspirin 81 mg tablet,delayed 81 mg PO DAILY #30 tabs 1 11/11/22 release atorvastatin 80 mg tablet 80 mg PO BEDTIME #30 tabs cefuroxime axetil 500 mg tablet 500 mg PO BID 8 days # 16 tabs 01/24/24 doxycycline monohydrate 100 mg 100 mg PO BID #10 caps 01/24/24 capsule insulin lispro 100 unit/mL 1 sliding scale dose subcut 01/24/24 subcutaneous pen (Admelog SoloStar USEASDIRECTD #15 mL U-100 Insulin lispro) metronidazole 500 mg tablet 500 mg PO Q12H #8 tabs phenylephrine 0.25 %-mineral oil 1 appl SC BID PRN hem orrhoids #57 01/24/24 14 %-petrolatm 74.9 % rectal grams ointment (Preparation H) doxycycline hyclate 100 mg capsule 100 mg PO BID 7 day s #14 caps 10/21/25 Allergies Allergy/AdvReac Type Severity Reaction Status Date / Time SEASONAL ALLERGIES Allergy Mild RUNNY NOSE Uncoded 10/21/25 09:57 Review of Systems Constitutional: Constitutional: Reports as per HPI [facility] Past Medical History Medical History GERD (gastroesophageal reflux disease) HLD (hyperlipidemia) HTN (hypertension) T2DM (type 2 diabetes mellitus) Surgical History Hx of colonoscopy (08/13/18) Hx of circumcision Family History Family History Father Diabetes Mother Diabetes Paternal Grandfather Diabetes Social History Social History Household Members: Spouse Household Members Other:: John Johansen Housing: House Do you presently have visiting nurse or other home services: No Alcohol intake: never Patient Tobacco Use Status: Never used Tobacco Smoked in Last 30 Days: No Use of substances other than those prescribed or required for medical reasons: No Advance Directives: No Advance Directives Information Provided: Yes service: No Physical Exam Exam: Exam: Overall well-appearing S1-S2 RRR Abdominal exam is benign Breathing comfortably no rales or wheezing, Examination of left thigh with a proximally 2 x 2 fluctuance area with surrounding erythema no drainage, distally exam without any evidence for involvement, compartments soft Vital Signs: Vital Signs: Last Vital Signs Temp 98.2 F 10/21/25 12:58 Pulse 97 10/21/25 14:19 Resp 16 10/21/25 14:19 BP 128/58 L 10/21/25 14:19 Pulse Ox 97 10/21/25 14:19 O2 Del Method Room Air 10/21/25 14:19 BMI result Body Mass Index 27.7 Medications Administered Discontinued Medications Generic Name Dose Route Start Last Admin Trade Name Freq PRN Reason Stop Dose Admin Lidocaine HCl 10 ml 10/21/25 13:24 10/21/25 13:48 Lidocaine Hcl 1 % 20 Ml Vial INFILTRATI 10/21/25 13:25 10 ml ONCE ONE Administration Lidocaine/Epinephrine/Tetracaine 2 ml 10/21/25 13:24 10/21/25 13:47 Lidocaine/Racepinep/Tetracaine 3 Ml Gel.Pf.[place] TOPICAL 10/21/25 13:25 2 ml ONCE ONE Administration Medical Decision Making Medical Decision Making MDM Narrative: 1:28 PM 10/21/2025 (Dr. Michael Wilson): Verbal consent for incision and drainage of the abscess obtained, we will apply LFT, and then lidocaine injection and we will anticipate drainage with 11 gauge, overall nonfebrile and reassuring physical exam Differential Diagnosis Differential Diagnoses: The differential diagnosis associated with the presentation includes (Deep space infection, pyomyositis, abscess, cellulitis, MRSA, hip involvement, knee involvement) Procedures Abscess I/D Site: lower extremity Side (if applicable): left Local Anesthetic: lidocaine 1% Amount of anesthesia used (mL): 10 Technique: incised with blade Sent for culture/gram staining?: No Irrigation: Yes Packing used?: none Discharge Plan Discharge Clinical Impression: Abscess of left thigh Instructions: Incision and Drainage (ED) Additional Instructions: Abscess was drained, remove dressing tomorrow, because there was some evidence of local cellulitis I am also starting you on antibiotics to cover MRSA, come back to the ER if you spike fevers chills, redness is spreading, you can take Tylenol 975 mg of Motrin as needed for pain Thereafter you can remove the dressing though maybe some oozing, keep the area clean warm water soaks in the bathtub daily with dissolved Epsom salts or some shampoo or soap Prescriptions: New doxycycline hyclate 100 mg capsule 100 mg PO BID 7 Days Qty: 14 0RF No Action multivitamin Tablet 1 tab PO DAILY enalapril maleate 10 mg tablet 10 mg PO DAILY atorvastatin 80 mg Tablet 80 mg PO BEDTIME Qty: 30 0RF aspirin 81 mg Tablet,Delayed Release (Dr/Ec) 81 mg PO DAILY Qty: 30 0RF Jardiance 10 mg tablet 10 mg PO DAILY cefuroxime axetil 500 mg tablet 500 mg PO BID 8 Days Qty: 16 0RF metronidazole 500 mg tablet 500 mg PO Q12H Qty: 8 0RF Preparation H 0.25-14-74.9 % ointment 1 appl SC BID PRN (Reason: hemorrhoids) Qty: 57 0RF Rx Instructions: to hemorroid doxycycline monohydrate 100 mg capsule 100 mg PO BID Qty: 10 0RF insulin lispro [Admelog SoloStar U-100 Insulin] 100 unit/mL insulin pen 1 sliding scale dose subcut USEASDIRECTD Qty: 15 0RF Rx Instructions: BG <111 0 units, 111-150 - 0 units, 151-200 2 units, 201-250 4 units, 251-300 6 units, 301-350 8 units, >350 10 units Lantus Solostar U-100 Insulin 100 unit/mL (3 mL) insulin pen 80 unit subcut BEDTIME Print Language: Macedonian
[2025-10-21] MEDS: Lidocaine/Racepinep/Tetracaine 3 ML GEL.PF.APP 2 ML TOPICAL (13:47)
[2025-10-21] MEDS: Lidocaine HCl 1 % 20 ML VIAL 10 ML INFILTRATI (13:48)
--- OUTSIDE RECORDS SUMMARY | 2025-10-21 13:54 | XMS_ITS | Encounter Summary ---
Author Organization [employer] Address [address] [place] [address] [place] [address] Care Team Providers Care Asphalt Paving Machine Operator Name Role Phone Jamia Cedeno MD Primary Care Provider [phone] Marianna Palm PharmD Unavailable [phone] Reason for Referral * Consultation (Routine) - Canceled Specialty Diagnoses / Procedures Referred By Contac t Referred To Contact Pharmacy Diagnoses Type 2 diabetes mellitus with hyperglycemia, with long-term current use of insulin ([facility]) Jamia Cedeno MD [address] [place] [address] Phone: tel: fax: Referral ID Status Reason Start Date Expiration Date V isits Requested Visits Authorized [id number] Canceled Consult and Treat 08/16/2024 08/16/2025 6 6 Encounter Details Date Type Department Care Team (Late st Contact Info) Description 08/16/2024 Orders Only [facility] [address] [place] [address] Jamia Cedeno MD [address] [place], [place] [id number] Type 2 diabetes mellitus with hyperglycemia, with long-term current use of insulin ([facility]) (Primary Dx) Social History Tobacco Use Types [...] Description 11/13/2025 9:00 AM EST Medication Management [facility] [address] [place] [address] Marianna Palm PharmD [address] [place] [address] Scheduled Referrals Name Type Priority Associated Diagnoses Orde r Schedule Referral to Pharmacy CDTM Outpatient Referral Routine Type 2 diabetes mellitus with hyperglycemia, with long-term current use of insulin ([facility]) Ordered: 08/16/2024 documented as of this encounter Goals Goal Patient Goal Type Associated Problems Recent Progress Patient-Stated? Author Patient will adhere to medication regimen General No Marianna Palm, PharmD Note: Restart Medbox 02/26/24 Hemoglobin A1c < 7 Result Component 8(08/21/2025 10:20 AM EDT) No Marianna Palm, PharmD Record your blood sugar as directed Result Component No Marianna Palm, PharmD documented as of this encounter Visit Diagnoses Diagnosis Type 2 diabetes mellitus with hyperglycemia, with long-term current use of insulin ([facility])- Primary documented in this encounter Care Teams Asphalt Paving Machine Operator Relationship Specialty Start Date End Date Jamia Cedeno MD [address] [place] [address] PCP - General Family Medicine 06/22/21 Marianna Palm, PharmD [address] [place], [place] [phone] Pharmacist Internal Medicine 02/23/24 documented as of this encounter
--- OUTSIDE RECORDS SUMMARY | 2025-10-21 13:54 | XMS_ITS | Encounter Summary ---
Author Organization [employer] Address [address] [place] [address] [place] [address] Care Team Providers Care Tong Setter Name Role Phone Jamia Cedeno MD Primary Care Provider [phone] Marianna Palm PharmD Unavailable [phone] Reason for Referral * Consultation (Routine) - Authorized Specialty Diagnoses / Procedures Referred By Contac t Referred To Contact Pharmacy Diagnoses Type 2 diabetes mellitus with hyperglycemia, with long-term current use of insulin ([facility]) Jamia Cedeno MD [address] [place] [address] Phone: tel: fax: Referral ID Status Reason Start Date Expiration Date Visits Requested Visits Authorized [id number] Authorized Consult and Treat 07/16/2025 07/16/2026 6 6 Encounter Details Date Type Department Care Team (Late st Contact Info) Description 07/16/2025 Orders Only [facility] [address] [place] [address] Jamia Cedeno MD [address] [place], [place] [phone] Type 2 diabetes mellitus with hyperglycemia, with long-term current use of insulin ([facility]) (Primary Dx) Social History Tobacco Use Types [...] is your housing situation today? I have joan fulton 05/20/[address] you [...] Description 11/13/2025 9:00 AM EST Medication Management [facility] [address] [place] [address] Marianna Palm, PharmD [address] [place] [address] Scheduled Referrals Name Type Priority Associated Diagnoses Orde r Schedule Referral to Pharmacy CDTM Outpatient Referral Routine Type 2 diabetes mellitus with hyperglycemia, with long-term current use of insulin ([facility]) Ordered: 07/16/2025 documented as of this encounter Goals Goal Patient Goal Type Associated Problems Recent Progress Patient-Stated? Author Patient will adhere to medication regimen General No Marianna Palm PharmD Note: Restart Medbox 02/26/24 Hemoglobin A1c < 7 Result Component 8(08/21/2025 10:20 AM EDT) No Marianna Palm PharmD Record your blood sugar as directed Result Component No Marianna Palm PharmD documented as of this encounter Visit Diagnoses Diagnosis Type 2 diabetes mellitus with hyperglycemia, with long-term current use of insulin (HCC)- Primary documented in this encounter Additional Health Concerns Assessment Noted Time PHQ-9 Depression Total Score: 0 05/20/20 25 12:16 PM EDT documented as of this encounter Care Teams Tong Setter Relationship Specialty Start Date End Date Jamia Cedeno MD [address] [place] [address] PCP - General Family Medicine 06/22/21 Marianna Palm PharmD [address] [place] [address] Pharmacist Internal Medicine 02/23/24 documented as of this encounter
--- OUTSIDE RECORDS SUMMARY | 2025-10-21 13:54 | XMS_ITS | Encounter Summary ---
Author Organization [employer] Address [address] [place] [address] [place] [address] Care Team Providers Care Manager Clinical Applications Name Role Phone Jamia Cedeno MD Primary Care Provider [phone] Marianna Palm PharmD Unavailable [phone] Reason for Visit * Reason Comments Med Refill Encounter Details Date Type Department Care Team (Late Contact Info) Description 02/24/2025 Refill [facility] [address] [place] [address] Jamia Cedeno MD [address] [place] [address] Social History Tobacco Use Types Packs/Day Years [...] AM EDT documented as of this encounter Miscellaneous Notes * Telephone Encounter - Jamia Cedeno MD - 02/25/2025 11:20 AM EDT No, after repletion dose of 50,000 units, should take 2000 units daily, I sent script documented in this encounter Plan of Treatment Upcoming Encounters Date Type Department Care Team (Late Contact Info) Description 11/13/2025 9:00 AM EST Medication Management [facility] [address] [place] [address] Marianna Palm PharmD [address] [place] [address] documented as of this encounter Goals Goal [...] on filedocumented in this encounter Care Teams Manager Clinical Applications Relationship Specialty Start Date End Date Jamia Cedeno MD [address] [place] [address] PCP - General Family Medicine 06/22/21 Marianna Palm, PharmD [address] [place] [address] Pharmacist Internal Medicine 02/23/24 documented as of this encounter
--- OUTSIDE RECORDS SUMMARY | 2025-10-21 13:54 | XMS_ITS | Clinical Summary ---
Author Organization [email or web address] Address [address] [place] [address] 7t [place] [address] Care Team Providers Care Flour Inspector Name Role Phone Jamia Cedeno MD Primary Care Provider [phone] Marianna Palm PharmD Unavailable [phone] Allergies No known active allergies Medications aspirin 81 MG EC tabletIndications: Type 2 diabetes mellitus with hyperglycemia, with long-term current use of insulin ([facility]),Mixed hyperlipidemia Take 1 tablet (81 mg) by mouth Once per day. 90 tablet 3 01/03/20 25 Active atorvastatin (Lipitor) 80 MG tabletIndications: Type 2 diabetes mellitus with hyperglycemia, with long-term current use of insulin ([facility]),Mixed hyperlipidemia Take 1 tablet (80 mg) by mouth at bedtime. 90 tablet 3 01/03/20 25 Active ergocalciferol (Vitamin D-2) 1.25 MG (45182 UT) capsule Take 1.25 mg by mouth 1 (one) time per week. x8 weeks Active losartan (Cozaar) 50 MG tabletIndications: Type 2 diabetes mellitus with hyperglycemia, with long-term current use of insulin ([facility]),Essential hypertension Take 1 tablet (50 mg) by mouth Once per day. 30 tablet 11 5 8:44 AM EST 01/03/20 25 026 Active Fish Oil-Krill Oil (MegaRed Advanced 4 in 1) capsule Take 1 capsule by mouth Once per day. OTC Active glucose blood (OneTouch Verio) test stripIndications:T ype 2 diabetes mellitus with hyperglycemia, with long-term current use of insulin ([facility]) Use to test blood sugar 1 time(s) daily 25 each 01/03/20 25 Active CircaTouch Delica Lancets 33G miscIndications:Ty pe 2 diabetes mellitus with hyperglycemia, with long-term current use of insulin ([facility]) Use to test blood sugar once daily 100 each 01/03/20 25 Active Blood Glucose Monitoring Suppl (CircaTouch Verio) w/Device kitIndications:Typ e 2 diabetes mellitus with hyperglycemia, with long-term current use of insulin ([facility]) Use as directed to check blood sugar daily 1 kit 01/03/20 25 Active cholecalciferol (Vitamin D-3) 50 MCG (1999 UT) capsule Take 1 capsule (50 mcg) by mouth Once per day. 90 capsule 3 02/26/20 25 Active cetirizine (ZyrTEC) 10 MG tablet Take 1 tablet (10 mg) by mouth Once per day. 90 tablet 3 05/20/20 25 026 Active insulin glargine (Toujeo Max SoloStar) 300 UNIT/ML injectionIndicatio ns:Type 2 diabetes mellitus with hyperglycemia, with long-term current use of insulin ([facility]) INJECT 82 UNITS SUBCUTANEOUSLY AT BEDTIME 24 mL 5 5 8:44 AM EST 06/20/20 25 Active Dulaglutide (Trulicity) 4.5 MG/0.5ML solution auto-injectorIndic ations:Type 2 diabetes mellitus with hyperglycemia, with long-term current use of insulin ([facility]) Inject 4.5 mg under the skin 1 (one) time per week. 6 mL 3 5 8:44 AM EST 06/20/20 25 Active empagliflozin (Jardiance) 25 MG Take 1 tablet (25 mg) by mouth Once per day. 90 tablet 1 08/21/20 25 Active Active Problems Problem Noted Date Diagnosed Date Abscess of buttock, left 10/21/2025 Assessment & Plan (10/21/2025 9:32 AM EST): 59 yr old male with c/o severe [...] Pt agreeable with plan will present to [facility] ER Fall as cause of accidental injury at [...] abnormal findings 02/20/2024 CVA (cerebral vascular accident) ([facility]) 09/13 Assessment & Plan (11/07/2023 9:11 AM EST): [...] XL because it says $0 copay at [facility] formulary keep Lantus at 80 units nightly, [...] Encounters Date Type Department Care Team Description 10/21/2025 9:00 AM EST Office Visit [facility] [address] [place] [address] Lee Conteh MD Abscess of buttock, left (Primary Dx) 10/21/2025 Travel 10/17/2025 Telephone [facility] [address] [place], [place] [phone] Jamia Cedeno MD No Show 10/16/2025 Telephone [facility] [address] [place], [place] [phone] Jamia Cedeno MD Chart Prep 08/21/2025 Travel from Last 3 Months Immunizations Immunization Administration Dates Next Due Hep B, adult 03/28/2024(Deferred: No longer needed - Immune per titers),02/19/2016 Influenza Injectable Quadriv alant Preservative Free IIV4 MDCK 09/07/2020,11/07/2018 Influenza injectable quadriv alent preservative free 11/03/2023,09/05/2019,12/06/2016 Influenza, IIV3, injectable 10/06/2014, 1 Influenza, Split (incl. f[place] antigen) 09/02/2013,07/12/2012 Influenza, seasonal, injecta ble, preservative free 08/21/2025,08/21/2024 Moderna Covid-19 Vaccine 12+ 06/02/2022, 10/12/2021,12/22/2020,11/24 Pneumococcal [...] (175 lb) 10/21/2025 8:45 AM EST Height 172.7 cm (5' 8 ) 12/09/2024 10:35 AM EST Body Mass Index 26.61 12/09/2024 10:35 AM EST Plan of Treatment Upcoming Encounters Date Type Department Care Team (Late st Contact Info) Description 11/13/2025 9:00 AM EST Medication Management [facility] [address] [place] [address] Marianna Palm, PharmD [address] [place], [place] [phone] Health Maintenance Due Date Last Done Comments CT Colonography 1964 FIT DNA/Cologuard 1964 FIT 1964 FOBT 1964 Sigmoidoscopy 1964 Eye Exam 1974 Alcohol/Substance Use Screening 1976 RSV Patients and Patients Aged 60 years or older (1 - Risk 50-74 years 1-dose series) 2014 Diabetes: Foot Exam 02/18/2025 02/19/2024 COVID-19 Vaccine ( season) 2025 06/02/2022, 10/12/2021, 12/22/2020, Additional history exists Diabetes: Hemoglobin A1C 11/21/2025 025, 05/20/2025, 01/02/2025, Additional history exists Lipid Panel 05/13/2026 05/13/2025, 01/29, 08/01/2022, Additional history exists Depression Screening 05/20/2026 05/20/2025, 05/20/20 25 Diabetes: Urine Protein Screening 05/20/2026 05/20/2025, 02/19/2024, 08/01/2022, Additional history exists Disability Screening 05/20/2026 05/20/2025 SDOH Screening 05/20/2026 05/20/2025 Tobacco Screening 10/21/2026 10/21/2025 Colonoscopy 01/22/2029 01/23/2024, 08/20/2019 Colorectal Cancer Screening 01/22/2029 DTaP/Tdap/Td Vaccines (3 - Td or Tdap) 01/31/2035 01/31/2025, 07/12/2012 Hepatitis B Vaccines Discontinued 02/19/2016 Zoster Vaccines Completed 12/09/2019, 09/09/2019 HIV Screening Completed 02/19/2024 Hepatitis C Screening Completed 02/19/2024 Pneumococcal Vaccine: 50+ Years Completed 01/31/2025, 01/30/2006 Influenza Vaccine Completed 08/21/2025, , 11/03/2023, Additional history exists HIB Vaccines Aged Out No longer eligi [...] patient's age to complete this topic Meningococcal B Vaccine Aged Out No l onger eligible based on patient's age to complete [...] directed Result Component No Marianna Palm, PharmD Help patients manage their type 2 [...] Care Plan Weekly blood pressure task No Mera, Archana Patient has chronic kidney disease Care Plan Patient has chronic kidney disease No Mera Archana Patient has chronic kidney disease Care Plan Patient has chronic kidney disease No MeraArchana arita Weekly blood pressure task Care Plan Weekly blood pressure task No Erlinda Danielssmo [place] Weekly blood pressure task Care Plan Weekly blood pressure task No Sandor Sidhu [facility] [place] Patient has chronic kidney disease Care Plan Patient has chronic kidney disease No Sandor Sidhu [facility] [place] Patient has chronic kidney disease Care Plan Patient has chronic kidney disease No Patten Sidhu, [facility] [place] Procedures Procedure Name Priority Date/Time Associated Diagnosis Comments POCT GLYCATED HEMOGLOBIN, TOTAL Routine 08/21/2025 10:20 AM EDT Type 2 diabetes mellitus with hyperglycemia, with long-term current use of insulin ([facility]) ALBUMIN, RANDOM URINE W/CREATININE Routine 05/20/2025 11:55 AM EDT Type 2 diabetes mellitus with hyperglycemia, with long-term current use of insulin ([facility]) LIPID PANEL, STANDARD Routine 05/13/2025 9:44 AM EDT HEPATITIS C AB W/REFL TO HCV RNA, QN, PCR Routine 02/19/2024 3:47 PM EDT Encounter for routine adult health examination without abnormal findings HIV 1/2 ANTIGEN/ANTIBODY, FOURTH GENERATION W/RFL Routine 02/19/2024 3:47 PM EDT Encounter for routine adult health examination without abnormal findings HM COLONOSCOPY Routine 08/20/2019 from Last 3 Months or Most Recently Relevant to Health Maintenance Results * (ABNORMAL) POCT Hgb A1c (08/21/2025 10:20 AM EDT) Hemoglobin A1C 8.0(A) 4.0 - 5.7 % Blood 08/21/2025 10:2 0 AM EDT Jamia Cedeno MD POINT OF CARE TEST ENTER/EDIT ORDERABLES Final Result * (ABNORMAL) Albumin, Random Urine W/Creatinine (05/20/2025 11:55 AM EDT) Creatinine, Urine 66.72 mg/dL [facility] Microalbumin Urine 533.0 mg/L [facility] Microalbum Creatinine Ratio Ur 798.8(H) <30 ug/mg cr [facility] Comment:Albumin/Creatinine R atio Reference Ranges: Normal: < 30 ug/mg creatinine Microalbuminuria: 30 - 300 ug/mg creatinineClinical Albuminuria: > 300 ug/mg creatinine Urine (Urine, Random) 05/20/2025 11:55 AM EDT 05/20/2025 1:03 PM EDT Jamia Cedeno MD LAB URINE ORDERABLES Final Res ult [facility] [address] [place] [phone] * (ABNORMAL) Lipid Panel, Standard (05/13/2025 9:44 AM EDT) Triglycerides 188(H) <150 mg/dL [facility] Comment:Desirable Triglyceri de: less than 150 mg/dLBorderline High Triglyceride 150-199 mg/dLHigh Triglyceride: 200-499 mg/dLVery High Triglyceride: greater than or equal to 5OO mg/dL Cholesterol 238(H) <200 mg/dL [facility] Comment:Desirable Cholestero l: less than 200 mg/dLBorderline High Cholesterol: 200-239 mg/dLHigh Cholesterol: greater than 239 mg/dL LDL Cholesterol Calculated 157(H) <100 mg/dL [facility] Comment:Desirable LDL: less than 100 mg/dLNear Optimal/Above Optimal LDL: 110- 129 mg/dLBorderline High LDL: 130-159 mg/dLHigh LDL: 160-189 mg/dLVery High LDL: greater than or equal to 190 mg/dL HDL Cholesterol 44 >40 mg/dL [facility] Comment:Desirable HDL: great er than 40 mg/dL Note: This HDL assay may give artificially low results in patients with liver disease. 05/13/2025 9:44 AM EDT 05/13/2025 11:06 AM EDT Jamia Cedeno MD LAB BLOOD ORDERABLES Final Res ult Performing Organization Address [facility] [place] Co de Phone Number [facility] [address] [place] [phone] * Hepatitis C Antibody with Reflex to HCV, RNA, Quantitative, Real-Time PCR (02/19/2024 3:47 PM EDT) Hepatitis C Antibody Nonreactive Nonreactive [facility] Comment:Antibodies to HCV no t detected; does not exclude early acuteHCV infection. Blood Venous blood specimen / Unknown 02/19/2024 3:47 PM EDT 02/19/2024 5:24 PM EDT us Jamia Cedeno MD LAB BLOOD ORDERABLES Final Res ult Performing Organization Address [facility] Co de Phone Number [facility] [address] [place] [phone] * HIV-1/2 Antigen and Antibodies, Fourth Generation, with Reflexes (02/19/2024 3:47 PM EDT) HIV AB/AG Nonreactive Nonreactive [facility] Comment:HIV-1 p24 Ag and/or HIV-1/HIV-2 Ab not detected.A test result that is nonreactive does not exclude thepossibility of exposure to or infection with HIV-1 and/orHIV-2. Nonreactive results in this assay for individualswith prior exposure to HIV-1 and/or HIV-2 may be due toantigen and antibody levels that are below the limit ofdetection of this assay.The Vrvanani[employer]ban HIV Ag/Ab Combo assay result andsupplemental assay results should be interpreted inconjunction with the patient's clinical presentation,history and other laboratory results. If the results areinconsistent with clinical evidence, additional testing issuggested to confirm the result. Blood Venous blood specimen / Unknown 02/19/2024 3:47 PM EDT 02/19/2024 5:24 PM EDT us Jamia Cedeno MD LAB BLOOD ORDERABLES Final Res ult [facility] [address] [place] [phone] * Colonoscopy (08/20/2019) Colonoscopy Normal Normal Narrative Brenda Bonner - 08/20/2019 Recommeded 5 year follow up ([facility] ) us Historical Provider HEALTH MAINTENANCE Edited Result - Final from Last 3 Months or Most Recently Relevant to Health Maintenance Additional Health Concerns Active Problems Noted Date [...] 10/21/2025 Patient has chronic kidney disease 10/21/2025 Insurance BCBS PPO Care Teams Flour Inspector Relationship Specialty Start Date End Date Jamia Cedeno MD [address] [place] [address] PCP - General Family Medicine 06/22/21 Marianna Palm PharmD [address] [place] [address] Pharmacist Internal Medicine 02/23/24
--- OUTSIDE RECORDS SUMMARY | 2025-10-21 13:54 | XMS_ITS | Encounter Summary ---
Author Organization [employer] Address [address] [place] [address] [place] [address] Care Team Providers Care Registered Nurse Post Partum Name Role Phone Jamia Cedeno MD Primary Care Provider [phone] Marianna Palm PharmD Unavailable [phone] Reason for Referral * Consultation (Routine) - Authorized Specialty Diagnoses / Procedures Referred By Contlaurel t Referred To Contact Podiatry Diagnoses Type 2 diabetes mellitus with hyperglycemia, with long-term current use of insulin ([facility]) Jamia Cedeno MD [address] [place] [phone] Phone: tel: fax: [facility] [address] [facility] [address] [place] [address] Phone: tel: fax: Referral ID Status Reason Start Date Expiration Date Visits Requested Visits Authorized [id number] Authorized Specialty Services Required 01/06/2025 01/06/2026 1 1 Encounter Details Date Type Department Care Team (Late st Contact Info) Description 01/06/2025 Orders Only [facility] [address] [place], [place] [phone] Jamia Cedeno MD [address] [place], [place] [phone] Type 2 diabetes mellitus with hyperglycemia, with [...] 11/13/2025 9:00 AM EST Medication Management [facility] [address] [place], [place] [phone] Marianna Palm PharmD [address] [place], [place] [phone] Scheduled Referrals Name Type Priority Associated Diagnoses Orde r Schedule Referral to Podiatry Outpatient Referral Routine Type 2 diabetes mellitus with hyperglycemia, with long-term current use of insulin ([facility]) Expected: 01/06/2025 (Approximate), Expires: 01/06/2026 documented as of this encounter Goals Goal Patient Goal Type Associated Problems Recent Progress Patient-Stated? Author Patient will adhere to medication regimen General No PuMarianna castle, PharmD Note: Restart [employer] 02/26/24 Hemoglobin A1c < 7 Result Component 8(08/21/2025 10:20 AM EDT) No Puia Marianna, PharmD Record your blood sugar as directed Result Component No Puia, Marianna, PharmD documented as of this encounter Visit Diagnoses Diagnosis Type 2 diabetes mellitus with hyperglycemia, with long-term current use of insulin ([facility])- Primary documented in this encounter Care Teams Registered Nurse Post Partum Relationship Specialty Start Date End Date Jamia Cedeno MD [address] [place] [address] [phone] PCP - General Family Medicine 06/22/21 Puia, Marianna, PharmD [address] [place] [address] [phone] Pharmacist Internal Medicine 02/23/24 documented as of this encounter
--- OUTSIDE RECORDS SUMMARY | 2025-10-21 13:54 | XMS_ITS | Encounter Summary ---
Author Organization [employer] Address [address] [place] [address] 7 [place] [address] Care Team Providers Care Die Sizer Name Role Phone Jamia Cedeno MD Primary Care Provider [phone] Marianna Palm PharmD Unavailable [phone] Reason for Visit * Reason Onset Date Comments Chart Prep 10/16/2025 Encounter Details Date Type Department Care Team ([facility] st Contact Info) Description 10/16/2025 Telephone [facility] [address] [place] [address] Jamia Cedeno MD [address] [place] [address] Chart Prep Social History Tobacco Use Types Packs/Day Years [...] is your housing situation today? I have joanbishnu fulton 05/20/[address] you [...] encounter Miscellaneous Notes * Telephone Encounter - Erin Iverson [place] - 10/16/2025 10:35 AM EST Chart Prep Labs: done Images: not applicable Referrals: no show Vaccines due: Covid and RSV Screenings: eye exam and foot exam Overdue care gaps: Glucose, SBIRT, and Oral health screening documented in this encounter Plan of Treatment Upcoming Encounters Date Type Department Care Team (Late st Contact Info) Description 11/13/2025 9:00 AM EST Medication Management [facility] [address] [place] [address] Marianna Palm, PharmD [address] [place] [address] documented as of this encounter Goals Goal Patient Goal Type Associated Problems Recent Progress Patient-Stated? Author Patient will adhere to medication regimen General No Marianna Palm, PharmD Note: Restart [employer] 02/26/24 Hemoglobin A1c < 7 Result Component 8(08/21/2025 10:20 AM EDT) No Marianna Palm, PharmD Record your blood sugar as directed Result Component No Marianna Palm PharmD Help patients manage their type 2 [...] chronic kidney disease No Erin Iverson [place] documented as of this encounter Visit Diagnoses Not on filedocumented in this encounter Additional Health Concerns Active Problems Noted Date Diagnosed Date Help patients manage their type 2 diabetes 10/16 Weekly blood pressure task 10/16/2025 Help patients manage their type 2 diabetes 10/16 Patient has chronic kidney disease 10/16/2025 Weekly blood pressure task 10/16/2025 Patient has chronic kidney disease 10/16/2025 Assessment Noted Time PHQ-9 Depression Total Score: 0 05/20/20 25 12:16 PM EDT documented as of this encounter Care Teams Die Sizer Relationship Specialty Start Date End Date Jamia Cedeno MD [address] [place] [address] PCP - General Family Medicine 06/22/21 Marianna Palm, DelbertD [address] [place] [phone] Pharmacist Internal Medicine 02/23/24 documented as of this encounter
--- OUTSIDE RECORDS SUMMARY | 2025-10-21 13:54 | XMS_ITS | Encounter Summary ---
Author Organization [employer] Address [address] [place] [address] [place] [address] Care Team Providers Care Field Control Inspector Name Role Phone Jaima Cedeno MD Primary Care Provider Marianna Palm PharmD Unavailable [phone] Encounter Details Date Type Department Care Team (Late st Contact Info) Description 06/27/2023 Abstract [facility] [address] [place] [address] [phone] Jamia Cedeno MD [address] [place] [address] Social History Tobacco Use Types Packs/Day Years [...] Description 11/13/2025 9:00 AM EST Medication Management [facility] [address] [place] [phone] Marianna Palm, PharmD [address] [place] [address] documented as of this encounter Procedures Procedure Name Priority Date/Time Associated Diagnosis Comments COLONOSCOPY Routine 08/20/2019 documented in this encounter Results * Colonoscopy (08/20/2019) Colonoscopy Normal Normal Narrative Brenda Bonner - 08/20/2019 Recommeded 5 year follow up [place] [place] us Historical Provider HEALTH MAINTENANCE Edited Result - Final documented in this encounter Visit Diagnoses Not on filedocumented in this encounter Care Teams Field Control Inspector Relationship Specialty Start Date End Date Jamia Cedeno MD [address] [place], [place] [phone] PCP - General Family Medicine 06/22/21 Marianna Palm PharmD [address] [place], [place] [phone] Pharmacist Internal Medicine 02/23/24 documented as of this encounter
--- OUTSIDE RECORDS SUMMARY | 2025-10-21 13:54 | XMS_ITS | Encounter Summary ---
Author Organization [employer] Address [address] [place] [address] 7 [place] [address] Care Team Providers Care Technical Assoc Name Role Phone Jamia Cedeno MD Primary Care Provider [phone] Marianna Palm PharmD Unavailable Encounter Details Date Type Department Care Team (Late st Contact Info) Description 02/25/2025 Orders Only [facility] [address] [place], [place] [phone] Jamia Cedeno MD [address] [place] [address] Social History Tobacco Use Types Packs/Day Years [...] Description 11/13/2025 9:00 AM EST Medication Management [facility] [address] [place] [address] Marianna Palm, PharmD [address] [place] [address] documented as of this encounter Goals Goal Patient Goal Type Associated Problems Recent Progress Patient-Stated? Author Patient will adhere to medication regimen General No Marianna Palm, PharmKayleigh Note: Restart [employer] 02/26/24 Hemoglobin A1c < 7 Result Component 8(08/21/2025 10:20 AM EDT) No Marianna Palm, PharmD Record your blood sugar as directed Result Component No Marianna Palm PharmD documented as of this encounter Visit Diagnoses Not on filedocumented in this encounter Care Teams Technical Assoc Relationship Specialty Start Date End Date Jamia Cedeno MD [address] [place] [address] PCP - General Family Medicine 06/22/21 Marianna Palm PharmD [address] [place] [address] Pharmacist Internal Medicine 02/23/24 documented as of this encounter
--- OUTSIDE RECORDS SUMMARY | 2025-10-21 13:54 | XMS_ITS | Encounter Summary ---
Author Organization [employer] Address [address] [place] [address] [place] [address] Care Team Providers Care Glycerin Supervisor Name Role Phone Jamia Cedeno MD Primary Care Provider [phone] Marianna Palm PharmD Unavailable Encounter Details Date Type Department Care Team (Late st Contact Info) Description 05/10/2024 Orders Only [facility] [address] [place] [address] [phone] Jamia Cedeno MD [address] [place] [phone] Social History Tobacco Use Types Packs/Day Years [...] 11/13/2025 9:00 AM EST Medication Management [facility] [address] [place] [phone] Marianna Palm, PharmD [address] [place] [phone] documented as of this encounter Goals Goal [...] on filedocumented in this encounter Care Teams Glycerin Supervisor Relationship Specialty Start Date End Date Jamia Cedeno MD [address] [place] [address] PCP - General Family Medicine 06/22/21 Marianna Palm PharmD [address] [place] [phone] Pharmacist Internal Medicine 02/23/24 documented as of this encounter
--- OUTSIDE RECORDS SUMMARY | 2025-10-21 13:54 | XMS_ITS | Encounter Summary ---
Author Organization [employer] Address [address] [place] [address] 7 [place] [address] Care Team Providers Care Instructor Product Inspection Name Role Phone Jamia Cedeno MD Primary Care Provider [phone] Marianna Palm PharmD Unavailable [phone] Reason for Visit * Reason Onset Date Comments No Show 10/17/2025 Encounter Details Date Type Department Care Team ([facility] Contact Info) Description 10/17/2025 Telephone [facility] [address] [place] [address] Jamia Cedeno MD [address] [place] [address] No Show Social History Tobacco Use Types Packs/Day Years [...] encounter Miscellaneous Notes * Telephone Encounter - Archana Mera - 10/17/2025 4:15 PM EST Pt no showed to follow up apt with pcp Wilian. No show letter mailed out. documented in this encounter Plan of Treatment Upcoming Encounters Date Type Department Care Team (Late st Contact Info) Description 11/13/2025 9:00 AM EST Medication Management [facility] [address] [place] [address] PuiaLavonMarianna, PharmD [address] [place] [address] documented as of this encounter Goals Goal [...] Patient has chronic kidney disease No Jamia Ceedno MD Patient has chronic kidney disease Care Plan Patient has chronic kidney disease No Jamia Cedeno MD Weekly blood pressure task Care Plan Weekly blood pressure task No Archana Mera Weekly blood pressure task Care Plan Weekly blood pressure task No Archana Mera Patient has chronic kidney disease Care Plan Patient has chronic kidney disease No Mera Archana Patient has chronic kidney disease Care Plan Patient has chronic kidney disease No Archana Mera documented as of this encounter Visit Diagnoses [...] 10/17/2025 Patient has chronic kidney disease 10/17/2025 Assessment Noted Time PHQ-9 Depression Total Score: 0 05/20/20 25 12:16 PM EDT documented as of this encounter Care Teams Instructor Product Inspection Relationship Specialty Start Date End Date Jamia Cedeno MD [address] [place] [id number] PCP - General Family Medicine 06/22/21 Marianna Palm, Otoniel [address] [place] [address] [place], [place] [phone] Pharmacist Internal Medicine 02/23/24 documented as of this encounter
--- OUTSIDE RECORDS SUMMARY | 2025-10-21 13:54 | XMS_ITS | Encounter Summary ---
Author Organization [employer] Address [address] [place] [address] [address] [place] [address] Care Team Providers Care Environmental Services Floor Tech Name Role Phone Jamia Cedeno MD Primary Care Provider [phone] Marianna Palm PharmD Unavailable [phone] Encounter Details Date Type Department Care Team (Latest Contact Info) Description 10/21/2025 Travel Social History Tobacco Use Types Packs/Day Years [...] Description 11/13/2025 9:00 AM EST Medication Management [facility] [address] [place], [place] [phone] Marianna Palm PharmD [address] [place], [place] [phone] documented as of this encounter Goals Goal [...] Care Plan Weekly blood pressure task No MeraArchana Weekly blood pressure task Care Plan Weekly blood pressure task No Mera, Archana Patient has chronic kidney disease Care Plan Patient has chronic kidney disease No Mera, Archana Patient has chronic kidney disease Care Plan Patient has chronic kidney disease No Mera Archana Weekly blood pressure task Care Plan Weekly blood pressure task No Sandor Sidhu [place] Weekly blood pressure task Care Plan Weekly blood pressure task No Sandor Sidhu [place] Patient has chronic kidney disease Care Plan Patient has chronic kidney disease No Sandor Sidhu [place] Patient has chronic kidney disease Care Plan Patient has chronic kidney disease No Patten Sidhu, [place] documented as of this encounter Visit [...] documented as of this encounter Care Teams Environmental Services Floor Tech Relationship Specialty Start Date End Date Jamia Cedeno MD [address] [place] [id number] PCP - General Family Medicine 06/22/21 Marianna Palm, PharmD [address] [place] [phone] Pharmacist Internal Medicine 02/23/24 documented as of this encounter
[2025-10-21 14:19] VITALS: BP 128/58; PULSE 97; RESP 16; O2SAT 97
[2025-10-21 15:07] VITALS: BP 121/58; PULSE 96; RESP 16; TEMP 36.8; O2SAT 97
== END 2025-10-21 15:11 | disposition home or self-care (01) ==
PROVIDERS: Emergency Provider Emergency Medicine; PCP General Practice
DX: L02.416 Cutaneous abscess of left lower limb (principal); I10 Essential (primary) hypertension; E11.9 Type 2 diabetes mellitus without complications; K21.9 Gastro-esophageal reflux disease without esophagitis; E78.5 Hyperlipidemia, unspecified
CPT/HCPCS: 10060; 99284; J2003